=== PATIENT | male | born 1960 | race Caucasian/White ===

== ENCOUNTER 2018-02-09 16:08 | Inpatient (IN) | payer SELFPAY ==
--- OUTSIDE RECORDS SUMMARY | 2018-02-09 16:41 | XMS REPORT | Clinical Summary ---
:1960 Author Organization [facility] Address [address] [place] [address] Phone Care Team Providers Name Role Phone Unavailable Primary Care Provider Unavailable Allergies No Known Allergies Current Medications Prescription Sig. Disp. Refills Start Date End Date Status amoxicillin (AMOXIL) Take 1 tablet 14 tablet 0 10/14/2017 10/21/2017 875 MG tablet (875 mg total) by mouth 2 (two) times daily for 7 days. traMADol (ULTRAM) 50 Take 2 tablets 30 tablet 0 10/14/2017 10/24/2017 mg tablet (100 mg total) by mouth every 6 (six) hours as needed for Pain for up to 10 days. Max Daily Amount: 400 mg amLODIPine (NORVASC) Take 1 tablet (5 30 tablet 0 10/14/2017 11/13/2017 5 MG tablet mg total) by mouth daily for 30 days. Active Problems Problem Noted Date Scrotal abscess 10/11/2017 Encounters Date Type Specialty Care Team Description 10/11/2017 - Hospital Encounter General Internal Prabhu Maynard Scrotal abscess 10/14/2017 Medicine MD Amarjit (Primary Dx);Anemia, unspecified type;Urinary retention 10/11/2017 Anesthesia Event ReCindy corrales CRNA 10/11/2017 Procedure Pass 10/11/2017 Surgery Prabhu Maynard DEBRIDEMENT/I&D,RAZA Ocasio MD ND PERINEAL/RECTAL/VUL DREW after 02/08/2017 Immunizations Name Dates Previously Given Next Due Influenza Three-TIV PF 5+ YR 10/14/2017 Social History Tobacco Use Types Packs/Day Years Used Date Never Assessed Sex Assigned at Date Recorded Not on file Last Filed Vital Signs Vital Sign Reading Time Taken Blood Pressure 172/94 10/14/2017 3:30 PM [employer] Pulse 83 10/14/2017 3:30 PM [employer] Temperature 36.2 C (97.1 F) 10/14/2017 3:30 PM [employer] Respiratory Rate 18 10/14/2017 3:30 PM [employer] Oxygen Saturation 95% 10/14/2017 3:30 PM [employer] Inhaled Oxygen Concentration - - Weight 65.8 kg (145 lb) 10/11/2017 4:15 PM [employer] Height 177.8 cm (5' 10") 10/11/2017 4:15 PM [employer] Body Mass Index 20.81 10/11/2017 4:15 PM [employer] Plan of Treatment Not on file Procedures Procedure Name Priority Date/Time Associated Diagnosis Comments DEBRIDEMENT/I&D,WOUND 10/11/2017 1:00 PM [employer] TOYA'S GANGRENE PERINEAL/RECTAL/VULVAR after 02/08/2017 Results RHYTHM STRIP - SCAN (10/15/2017 2:50 PM)CBC with platelet count + automated diff (10/14/2017 5:27 AM)Only the most recent of4 resultswithin the time period is included. Component Value Ref Range WBC 4.9 3.5 - 10.5 K/L RBC 2.93 (L) 4.63 - 6.08 M/L Hemoglobin 8.4 (L) 13.7 - 17.5 GM/DL Hematocrit 26.2 (L) 40.1 - 51.0 % MCV 89.4 79.0 - 92.2 fL MCH 28.7 25.7 - 32.2 pg MCHC 32.1 (L) 32.3 - 36.5 GM/DL RDW 17.4 (H) 11.6 - 14.4 % Platelets 244 150 - 450 K/CU MM MPV 9.7 9.4 - 12.4 fL nRBC 0 0 - 0 /100 WBC % Neutros 71 % % Lymphs 19 % % Monos 7 % % Eos 1 % % Baso 0 % # Neutros 3.51 1.78 - 5.38 K/L # Lymphs 0.93 (L) 1.32 - 3.57 K/L # Monos 0.33 0.30 - 0.82 K/L # Eos 0.05 0.04 - 0.54 K/L # Baso 0.01 0.01 - 0.08 K/L Immature Granulocytes-Relative 2 (H) 0 - 1 % Specimen Performing Laboratory Blood [facility] [address] [place] [address] CBC with platelet count + automated diff (10/14/2017 5:27 AM)Only the most recent of4 resultswithin the time period is included. Specimen Performing Laboratory Blood Narrative The following orders were created for panel order CBC with platelet count + automated diff. Procedure Abnormality Status --------- ------ CBC with platelet count ...[[id number]]AbnormalFinal result Please view results for these tests on the individual orders. Basic Metabolic Panel - On floor (10/14/2017 5:27 AM)Only the most recent of3 resultswithin the time period is included. Component Value Ref Range Sodium 134 (L) 136 - 145 meq/L Potassium 3.6 3.5 - 5.1 meq/L Chloride 102 98 - 107 meq/L CO2 25 22 - 29 meq/L BUN 8 7 - 21 mg/dL Creatinine 0.77 0.57 - 1.25 mg/dL Glucose 87 70 - 105 mg/dL Calcium 8.2 (L) 8.4 - 10.2 mg/dL EGFR 105Comment: ESTIMATED GFR IS NOT ACCURATE mL/min/1.73 sq m CREATININE CLEARANCE IN PREDICTING GLOMERULAR FILTRATION RATE. ESTIMATED GFR IS NOT APPLICABLE FOR DIALYSIS PATIENTS. Specimen Performing Laboratory Blood [address] [address] TRANSFUSION SERVICE REPORT - SCAN (10/13/2017 5:40 PM)Only the most recent of2 resultswithin the time period is included.Vancomycin level, trough (10/13/2017 12:45 PM) Component Value Ref Range Vancomycin Tr 30.1 (HH) 10.0 - 20.0 ug/mL Specimen Performing Laboratory Blood - Arm, Left [address] [address] Narrative Please draw 30 min prior to 4th dose Occult blood, stool (10/13/2017 11:55 AM) Component Value Ref Range Occult blood Negative Negative Specimen Performing Laboratory Stool - Per Rectum [address] [address] Prepare RBC (10/12/2017 11:54 PM)Only the most recent of2 resultswithin the time period is included. Component Value Ref Range Unit ABO O Neg UNIT NUMBER [id number] Status TRANSFUSED Blood Bank Product RED BLOOD CELLS PRODUCT CODE [id number] Unit ABO O Neg UNIT NUMBER [id number] Status TRANSFUSED Blood Bank Product RED BLOOD CELLS PRODUCT CODE [id number] CROSSMATCH COMPATIBLE CROSSMATCH COMPATIBLE Specimen Performing Laboratory [employer] Reticulocyte count (10/12/2017 5:02 AM)Only the most recent of2 resultswithin the time period is included. Component Value Ref Range % Retic 1.8 0.5 - 1.8 % Specimen Performing Laboratory Blood - Arm, [address] [address] CBC (Hemogram only) (10/11/2017 5:20 PM) Component Value Ref Range WBC 14.9 (H) 3.5 - 10.5 K/L RBC 2.57 (L) 4.63 - 6.08 M/L Hemoglobin 7.5 (L) 13.7 - 17.5 GM/DL Hematocrit 24.1 (L) 40.1 - 51.0 % MCV 93.8 (H) 79.0 - 92.2 fL MCH 29.2 25.7 - 32.2 pg MCHC 31.1 (L) 32.3 - 36.5 GM/DL RDW 17.4 (H) 11.6 - 14.4 % Platelets 183 150 - 450 K/CU MM MPV 10.2 9.4 - 12.4 fL nRBC 0 0 - 0 /100 WBC Specimen Performing Laboratory [address] [address] Vitamin B12 and Folate (10/11/2017 5:15 PM) Component Value Ref Range Vitamin B12 909 (H) 213 - 816 pg/mL Folate 6.8 (L) >=7.0 ng/mL Specimen Performing Laboratory [address] [address] PT/aPTT (10/11/2017 5:15 PM) Component Value Ref Range Protime 17.3 (H) 11.7 - 14.7 seconds INR 1.4 <=5.9 PTT 40.2 (H) 22.5 - 36.0 seconds Specimen Performing Laboratory Blood [facility] [address] [address] Narrative RECOMMENDED COUMADIN/WARFARIN INR THERAPY RANGES STANDARD DOSE: 2.0 - 3.0 Includes: PROPHYLAXIS for venous thrombosis, systemic embolization; TREATMENT for venous thrombosis and/or pulmonary embolus. HIGH RISK: Target INR is 2.5-3.5 for patients with mechanical heart valves. Iron, TIBC, % sat. (without ferritin) (10/11/2017 5:15 PM) Component Value Ref Range Iron 7 (L) 40 - 160 ug/dL TIBC 144 (L) 250 - 450 ug/dL Iron % Saturation 5 (L) 20 - 55 % Specimen Performing Laboratory Blood [address] [address] Fibrinogen (10/11/2017 5:15 PM)Only the most recent of2 resultswithin the time period is included. Component Value Ref Range Fibrinogen 474 (H) 225 - 434 mg/dl Specimen Performing Laboratory Blood [address] [address] D-dimer (10/11/2017 5:15 PM) Component Value Ref Range D-Dimer, Quant 2.28 (H) <0.50 MG/L FEU Specimen Performing Laboratory [address] [address] Narrative Intended Use: The D-Dimer Assay can be used to aid in the diagnosis of Deep Vein Thrombosis (DVT) and Pulmonary Embolism Disease (PED). In patients with low pre-test probability, various studies concerning STA Liatest D-dimer test have reported that with a cutoff value of 0.50 MG/L FEU, the Negative Predictive Value (NPV) regarding the exclusion of thrombosis is within 95-100% range. Direct AHG (LAST)/Direct Lj (10/11/2017 5:15 PM) Component Value Ref Range Direct AHG-IGG NEGATIVE Direct AHG-C3B, C3D NEGATVIE Specimen Performing Laboratory Blood [address] [address] Lactate dehydrogenase (LDH) (10/11/2017 5:15 PM) Component Value Ref Range LDH 197 125 - 220 U/L Specimen Performing Laboratory Blood [address] [address] Ferritin (10/11/2017 5:15 PM) Component Value Ref Range Ferritin 315 (H) 5 - 275 ng/mL Specimen Performing Laboratory Blood [address] [address] Comprehensive metabolic panel (10/11/2017 5:15 PM) Component Value Ref Range Protein, Total 6.7 6.0 - 8.3 gm/dL Albumin 2.9 (L) 3.5 - 5.0 g/dL Alkaline Phosphatase 109 40 - 150 U/L Total Bilirubin 1.3 (H) 0.2 - 1.2 mg/dL Sodium 140 136 - 145 meq/L Potassium 4.0 3.5 - 5.1 meq/L Chloride 111 (H) 98 - 107 meq/L CO2 21 (L) 22 - 29 meq/L BUN 10 7 - 21 mg/dL Creatinine 0.79 0.57 - 1.25 mg/dL Glucose 88 70 - 105 mg/dL Calcium 7.8 (L) 8.4 - 10.2 mg/dL AST 38 (H) 5 - 34 U/L ALT 19 6 - 55 U/L EGFR 102Comment: ESTIMATED GFR IS NOT ACCURATE mL/min/1.73 sq m CREATININE CLEARANCE IN PREDICTING GLOMERULAR FILTRATION RATE. ESTIMATED GFR IS NOT APPLICABLE FOR DIALYSIS PATIENTS. Specimen Performing Laboratory Blood [address] [address] AFB culture + smear (10/11/2017 3:50 PM) Component Value Ref Range Result No acid-fast bacilli isolated in 42 days AFB Smear No acid fast bacilli seen Specimen Performing Laboratory Abscess - Scrotum [address] [address] Anaerobic culture (10/11/2017 3:50 PM) Component Value Ref Range Result Result 3+ Anaerobic gram negative rods (A)Comment: * - not Bacteroides fragilis group Result 3+ Anaerobic gram positive cocci (A) Comment: Most closely resembles * - Peptostreptococcus species Specimen Performing Laboratory Abscess - Scrotum [address] [address] Surgically obtained culture + gram stain (10/11/2017 3:50 PM) Component Value Ref Range Result Result 4+ Enterococcus species (A) Result 2+ Coagulase negative Staphylococcus (A) Gram Stain Result 4+ White blood cells seen Gram Stain Result 4+ gram positive cocci in clusters Gram Stain Result 1+ gram positive coccobacilli Specimen Performing Laboratory [address] [address] Organism Antibiotic Method Susceptibility Enterococcus species Ampicillin <=2: Susceptible Enterococcus species Linezolid 2: Susceptible Enterococcus species Vancomycin 1: Susceptible Coagulase negative Clindamycin 0.5: Susceptible Staphylococcus Coagulase negative Erythromycin <=0.25: Susceptible Staphylococcus Coagulase negative Levofloxacin >=8: Resistant Staphylococcus Coagulase negative Linezolid 4: Susceptible Staphylococcus Coagulase negative Oxacillin <=0.25: Susceptible Staphylococcus Coagulase negative Rifampin <=0.5: Susceptible Staphylococcus Coagulase negative Tetracycline 4: Susceptible Staphylococcus Coagulase negative Trimethoprim + >=320: Resistant Staphylococcus Sulfamethoxazole Coagulase negative Vancomycin 2: Susceptible Staphylococcus Fungus culture + smear (10/11/2017 3:50 PM) Component Value Ref Range Result No fungus isolated in 28 days Fungus Smear No fungi seen Specimen Performing Laboratory Abscess [address] [address] SPIN/CONCENTRATION CHARGE (10/11/2017 3:50 PM) Component Value Ref Range Concentration charged Done Specimen Performing Laboratory [address] [address] aPTT (10/11/2017 3:28 PM) Component Value Ref Range PTT 38.0 (H) 22.5 - 36.0 seconds Specimen Performing Laboratory Blood [address] [address] Prothrombin time/INR (10/11/2017 3:28 PM) Component Value Ref Range Protime 17.2 (H) 11.7 - 14.7 seconds INR 1.4 <=5.9 Specimen Performing Laboratory Blood [address] [address] Narrative RECOMMENDED COUMADIN/WARFARIN INR THERAPY RANGES STANDARD DOSE: 2.0 - 3.0 Includes: PROPHYLAXIS for venous thrombosis, systemic embolization; TREATMENT for venous thrombosis and/or pulmonary embolus. HIGH RISK: Target INR is 2.5-3.5 for patients with mechanical heart valves. Type and screen, automated (10/11/2017 3:20 PM) Component Value Ref Range ABO/RH AUTOMATED (BEAKER) AB POSITIVE Ab Scrn NEGATIVE Specimen Performing Laboratory Blood [address] [address] RRL Critical Labs (ABG,NA,K,H&H,GLU) (10/11/2017 3:15 PM) Specimen Performing Laboratory Blood, Arterial Narrative The following orders were created for panel order RRL Critical Labs (ABG,NA,K,H&H,GLU). Procedure Abnormality Status --------- ------ Blood gas, arterial[[id number]]AbnormalFinal result Sodium Na-Stat Lab[[id number]] NormalFinal result Potassium-Stat Lab[[id number]] NormalFinal result Glucose-Stat Lab[[id number]] NormalFinal result HGB/HCT (H&H)-Stat Lab[[id number]] Abnormal Final result Please view results for these tests on the individual orders. Potassium-Stat Lab (10/11/2017 3:15 PM) Component Value Ref Range Potassium 3.6 3.6 - 5.5 meq/L Specimen Performing Laboratory Blood, Arterial [address] [address] Sodium Na-Stat Lab (10/11/2017 3:15 PM) Component Value Ref Range Sodium 136 135 - 148 meq/L Specimen Performing Laboratory Blood, [address] [address] Glucose-Stat Lab (10/11/2017 3:15 PM) Component Value Ref Range Glucose 82 70 - 110 mg/dL Specimen Performing Laboratory Blood, Arterial [address] [address] HGB/HCT (H&H)-Stat Lab (10/11/2017 3:15 PM) Component Value Ref Range Hemoglobin 4.2 (LL) 13.0 - 16.8 g/dL Hematocrit 12.0 (L) 40.0 - 50.0 % Specimen Performing Laboratory Blood, Arterial [address] [address] Blood gas, arterial (10/11/2017 3:15 PM) Component Value Ref Range pH, Arterial 7.36 7.35 - 7.45 pCO2, Arterial 41 35 - 45 mmHg pO2, Arterial 119 (H) 80 - 90 mmHg O2 Sat, Arterial 98.2 (H) 96.0 - 97.0 % HCO3, Arterial 23 21 - 29 mmol/L Base Excess, Arterial -2.2 (L) -2.0 - 3.0 mmol/L Patient Temperature 36.8 C FIO2 100.0 % Specimen Performing Laboratory Blood, Arterial [facility] [address] [address] after 02/08/2017
--- OUTSIDE RECORDS SUMMARY | 2018-02-09 16:41 | XMS REPORT ---
:1960 Author Organization [facility] Address [address] [place] [id number] Care Team Providers Name Role Phone ELISABETH PAUL Unavailable Unavailable Problems This patient has no known problems. Allergies, Adverse Reactions, Alerts This patient has no known allergies or adverse reactions. Medications This patient has no known medications. Results Test Description Test Time Test Comments Text Results Atomic Results Result Comments AFB CULTURE + SMEAR 2017-11-27 13:52:00 Test Item Value Reference Range Comments CULTURE (BEAKER) (test dsar=9096) No acid-fast bacilli isolated in 42 days AFB SMEAR (BEAKER) (test ikto=061) No acid fast bacilli seen FUNGUS CULTURE + [id number] 08:25:00 Test Item Value Reference Range Comments CULTURE (BEAKER) (test No fungus isolated in 28 days nhpt=8359) FUNGUS SMEAR (BEAKER) (test No fungi seen jorx=8858) ANAEROBIC [id number] 17:50:00 Test Item Value Reference Range Comments CULTURE (BEAKER) (test 3+ Anaerobic gram positive cocciMost trts=9019) closely resembles* - Peptostreptococcus species SURGICALLY OBTAINED CULTURE + GRAM [id number] 12:12:00 Test Item Value Reference Range Comments CULTURE (BEAKER) (test vtls=1432) Ampicillin (test code=26) Linezolid (test code=40) Tetracycline (test code=2) Vancomycin (test code=13) CULTURE (BEAKER) (test 4+ Enterococcus eqtq=5068) species CULTURE (BEAKER) (test COAGULASE NEGATIVE 2+ Coagulase negative bvis=1548) STAPHYLOCOCCUS Staphylococcus Clindamycin (test code=10) Erythromycin (test code=4) Levofloxacin (test code=22) Linezolid (test code=40) Nitrofurantoin (test code=23) Oxacillin (test code=14) Rifampin (test code=43) Tetracycline (test code=2) Trimethoprim + Sulfamethoxazole (test code=47) Vancomycin (test code=13) GRAM STAIN RESULT 4+ White blood cells (BEAKER) (test jmlu=2873) seen GRAM STAIN RESULT 4+ gram positive cocci (BEAKER) (test in clusters vzok=[id number]) GRAM STAIN RESULT 1+ gram positive (BEAKER) (test coccobacilli nwke=421695) BASIC METABOLIC [id number] 07:11:00 Test Item Value Reference Range Comments SODIUM (BEAKER) (test 134 meq/L 136-145 hpjv=967) POTASSIUM (BEAKER) (test 3.6 meq/L 3.5-5.1 mssn=734) CHLORIDE (BEAKER) (test 102 meq/L 98-107 wwqc=486) CO2 (BEAKER) (test 25 meq/L 22-29 bova=407) BLOOD UREA NITROGEN 8 mg/dL 7-21 (BEAKER) (test oilz=407) CREATININE (BEAKER) (test 0.77 mg/dL 0.57-1.25 sqrv=706) GLUCOSE RANDOM (BEAKER) 87 mg/dL 70-105 (test kxgr=868) CALCIUM (BEAKER) (test 8.2 mg/dL 8.4-10.2 bkst=615) EGFR (BEAKER) (test 105 mL/min/1.73 sq m ESTIMATED GFR IS NOT npae=0396) ACCURATE CREATININE CLEARANCE IN PREDICTING GLOMERULAR FILTRATION RATE. ESTIMATED GFR IS NOT APPLICABLE FOR DIALYSIS PATIENTS. CBC W/PLT COUNT & AUTO [id number] 06:09:00 Test Item Value Reference Range Comments WHITE BLOOD CELL COUNT (BEAKER) (test qpvq=223) 4.9 K/ L 3.5-10.5 RED BLOOD CELL COUNT (BEAKER) (test oddz=775) 2.93 M/ L 4.63-6.08 HEMOGLOBIN (BEAKER) (test kyfa=856) 8.4 GM/DL 13.7-17.5 HEMATOCRIT (BEAKER) (test frtc=861) 26.2 % 40.1-51.0 MEAN CORPUSCULAR VOLUME (BEAKER) (test grhv=260) 89.4 fL 79.0-92.2 MEAN CORPUSCULAR HEMOGLOBIN (BEAKER) (test 28.7 pg 25.7-32.2 dpli=226) MEAN CORPUSCULAR HEMOGLOBIN CONC (BEAKER) (test 32.1 GM/DL 32.3-36.5 xsud=322) RED CELL DISTRIBUTION WIDTH (BEAKER) (test 17.4 % 11.6-14.4 ekxb=988) PLATELET COUNT (BEAKER) (test zlnd=950) 244 K/CU MM 150-450 MEAN PLATELET VOLUME (BEAKER) (test vihi=599) 9.7 fL 9.4-12.4 NUCLEATED RED BLOOD CELLS (BEAKER) (test 0 /100 WBC 0-0 blan=203) NEUTROPHILS RELATIVE PERCENT (BEAKER) (test 71 % jmir=143) LYMPHOCYTES RELATIVE PERCENT (BEAKER) (test 19 % syew=108) MONOCYTES RELATIVE PERCENT (BEAKER) (test 7 % uoew=590) EOSINOPHILS RELATIVE PERCENT (BEAKER) (test 1 % apvs=195) BASOPHILS RELATIVE PERCENT (BEAKER) (test 0 % uzrl=458) NEUTROPHILS ABSOLUTE COUNT (BEAKER) (test 3.51 K/ L 1.78-5.38 ftiq=531) LYMPHOCYTES ABSOLUTE COUNT (BEAKER) (test 0.93 K/ L 1.32-3.57 zvvo=877) MONOCYTES ABSOLUTE COUNT (BEAKER) (test 0.33 K/ L 0.30-0.82 qayw=896) EOSINOPHILS ABSOLUTE COUNT (BEAKER) (test 0.05 K/ L 0.04-0.54 pdla=737) BASOPHILS ABSOLUTE COUNT (BEAKER) (test 0.01 K/ L 0.01-0.08 hoym=849) IMMATURE GRANULOCYTES-RELATIVE PERCENT (BEAKER) 2 % 0-1 (test kcie=5633) SPIN/CONCENTRATION [id number] 01:32:00 Test Item Value Reference Range Comments CONCENTRATION CHARGED (BEAKER) (test xkzh=1776) Done OCCULT BLOOD, [id number] 15:47:00 Test Item Value Reference Range Comments FECAL OCCULT BLOOD (BEAKER) (test ydji=563) Negative Negative VANCOMYCIN LEVEL, [id number] 13:39:00 Test Item Value Reference Range Comments VANCOMYCIN TROUGH (BEAKER) (test ticg=704) 30.1 ug/mL 10.0-20.0 Please draw 30 min prior to 4th doseBASIC METABOLIC [id number] 06:16:00 Test Item Value Reference Range Comments SODIUM (BEAKER) (test 138 meq/L 136-145 jmso=286) POTASSIUM (BEAKER) (test 3.6 meq/L 3.5-5.1 dwvm=565) CHLORIDE (BEAKER) (test 109 meq/L 98-107 wxwu=925) CO2 (BEAKER) (test 21 meq/L 22-29 rufy=936) BLOOD UREA NITROGEN 9 mg/dL 7-21 (BEAKER) (test cjsl=070) CREATININE (BEAKER) (test 0.73 mg/dL 0.57-1.25 nrmu=529) GLUCOSE RANDOM (BEAKER) 92 mg/dL 70-105 (test wwxc=120) CALCIUM (BEAKER) (test 7.9 mg/dL 8.4-10.2 pwaj=926) EGFR (BEAKER) (test 112 mL/min/1.73 sq m ESTIMATED GFR IS NOT ophk=5749) ACCURATE CREATININE CLEARANCE IN PREDICTING GLOMERULAR FILTRATION RATE. ESTIMATED GFR IS NOT APPLICABLE FOR DIALYSIS PATIENTS. CBC W/PLT COUNT & AUTO [id number] 05:13:00 Test Item Value Reference Range Comments WHITE BLOOD CELL COUNT (BEAKER) (test zdhi=007) 6.9 K/ L 3.5-10.5 RED BLOOD CELL COUNT (BEAKER) (test fevg=929) 2.64 M/ L 4.63-6.08 HEMOGLOBIN (BEAKER) (test iclz=337) 7.6 GM/DL 13.7-17.5 HEMATOCRIT (BEAKER) (test dmte=379) 24.1 % 40.1-51.0 MEAN CORPUSCULAR VOLUME (BEAKER) (test vkpf=688) 91.3 fL 79.0-92.2 MEAN CORPUSCULAR HEMOGLOBIN (BEAKER) (test 28.8 pg 25.7-32.2 jnfu=771) MEAN CORPUSCULAR HEMOGLOBIN CONC (BEAKER) (test 31.5 GM/DL 32.3-36.5 mhoh=607) RED CELL DISTRIBUTION WIDTH (BEAKER) (test 17.8 % 11.6-14.4 bgwr=182) PLATELET COUNT (BEAKER) (test ifto=237) 222 K/CU MM 150-450 MEAN PLATELET VOLUME (BEAKER) (test bbhk=759) 10.1 fL 9.4-12.4 NUCLEATED RED BLOOD CELLS (BEAKER) (test 0 /100 WBC 0-0 uwqk=463) NEUTROPHILS RELATIVE PERCENT (BEAKER) (test 76 % mhck=651) LYMPHOCYTES RELATIVE PERCENT (BEAKER) (test 15 % vtdm=629) MONOCYTES RELATIVE PERCENT (BEAKER) (test 6 % ekvj=228) EOSINOPHILS RELATIVE PERCENT (BEAKER) (test 0 % qncl=145) BASOPHILS RELATIVE PERCENT (BEAKER) (test 0 % pepc=513) NEUTROPHILS ABSOLUTE COUNT (BEAKER) (test 5.24 K/ L 1.78-5.38 egti=474) LYMPHOCYTES ABSOLUTE COUNT (BEAKER) (test 1.06 K/ L 1.32-3.57 bzsh=231) MONOCYTES ABSOLUTE COUNT (BEAKER) (test 0.40 K/ L 0.30-0.82 ecfl=462) EOSINOPHILS ABSOLUTE COUNT (BEAKER) (test 0.02 K/ L 0.04-0.54 joja=581) BASOPHILS ABSOLUTE COUNT (BEAKER) (test 0.01 K/ L 0.01-0.08 uwer=432) IMMATURE GRANULOCYTES-RELATIVE PERCENT (BEAKER) 2 % 0-1 (test hdpp=2589) BASIC METABOLIC [id number] 06:43:00 Test Item Value Reference Range Comments SODIUM (BEAKER) (test 135 meq/L 136-145 lrjh=628) POTASSIUM (BEAKER) (test 4.5 meq/L 3.5-5.1 clzl=335) CHLORIDE (BEAKER) (test 109 meq/L 98-107 jtql=240) CO2 (BEAKER) (test 19 meq/L 22-29 vsbh=158) BLOOD UREA NITROGEN 13 mg/dL 7-21 (BEAKER) (test quqs=417) CREATININE (BEAKER) (test 0.79 mg/dL 0.57-1.25 vson=973) GLUCOSE RANDOM (BEAKER) 136 mg/dL 70-105 (test mama=081) CALCIUM (BEAKER) (test 7.8 mg/dL 8.4-10.2 mxpc=149) EGFR (BEAKER) (test 102 mL/min/1.73 sq m ESTIMATED GFR IS NOT ytur=3087) ACCURATE CREATININE CLEARANCE IN PREDICTING GLOMERULAR FILTRATION RATE. ESTIMATED GFR IS NOT APPLICABLE FOR DIALYSIS PATIENTS. CBC W/PLT COUNT & AUTO [id number] 06:27:00 Test Item Value Reference Range Comments WHITE BLOOD CELL COUNT (BEAKER) (test mabe=065) 13.7 K/ L 3.5-10.5 RED BLOOD CELL COUNT (BEAKER) (test kxth=886) 2.69 M/ L 4.63-6.08 HEMOGLOBIN (BEAKER) (test gbwd=539) 8.0 GM/DL 13.7-17.5 HEMATOCRIT (BEAKER) (test tdzj=591) 25.2 % 40.1-51.0 MEAN CORPUSCULAR VOLUME (BEAKER) (test ioqo=163) 93.7 fL 79.0-92.2 MEAN CORPUSCULAR HEMOGLOBIN (BEAKER) (test 29.7 pg 25.7-32.2 hppz=747) MEAN CORPUSCULAR HEMOGLOBIN CONC (BEAKER) (test 31.7 GM/DL 32.3-36.5 xfuz=897) RED CELL DISTRIBUTION WIDTH (BEAKER) (test 18.1 % 11.6-14.4 myjs=031) PLATELET COUNT (BEAKER) (test hdql=158) 196 K/CU MM 150-450 MEAN PLATELET VOLUME (BEAKER) (test caef=462) 10.6 fL 9.4-12.4 NUCLEATED RED BLOOD CELLS (BEAKER) (test 0 /100 WBC 0-0 nqxi=720) NEUTROPHILS RELATIVE PERCENT (BEAKER) (test 90 % ufuv=070) LYMPHOCYTES RELATIVE PERCENT (BEAKER) (test 7 % snhp=004) MONOCYTES RELATIVE PERCENT (BEAKER) (test 2 % kqqs=433) EOSINOPHILS RELATIVE PERCENT (BEAKER) (test 0 % kbfl=164) BASOPHILS RELATIVE PERCENT (BEAKER) (test 0 % rpbp=736) NEUTROPHILS ABSOLUTE COUNT (BEAKER) (test 12.32 K/ L 1.78-5.38 rbna=500) LYMPHOCYTES ABSOLUTE COUNT (BEAKER) (test 0.92 K/ L 1.32-3.57 imcb=830) MONOCYTES ABSOLUTE COUNT (BEAKER) (test 0.31 K/ L 0.30-0.82 uues=007) EOSINOPHILS ABSOLUTE COUNT (BEAKER) (test 0.00 K/ L 0.04-0.54 vvgo=696) BASOPHILS ABSOLUTE COUNT (BEAKER) (test 0.01 K/ L 0.01-0.08 akbm=620) IMMATURE GRANULOCYTES-RELATIVE PERCENT (BEAKER) 1 % 0-1 (test hkfu=2522) RETICULOCYTE [id number] 05:39:00 Test Item Value Reference Range Comments RETICULOCYTE COUNT PCT (BEAKER) (test dide=414) 1.8 % 0.5-1.8 [id number] 18:34:00 Test Item Value Reference Range Comments FERRITIN (BEAKER) (test zigm=227) 315 ng/mL 5-275 VITAMIN B12 AND [id number] 18:34:00 Test Item Value Reference Range Comments VITAMIN B12 (BEAKER) (test ehlf=146) 909 pg/mL 213-816 FOLATE (BEAKER) (test dtlt=536) 6.8 ng/mL >=7.0 COMPREHENSIVE METABOLIC [id number] 18:07:00 Test Item Value Reference Range Comments TOTAL PROTEIN (BEAKER) 6.7 gm/dL 6.0-8.3 (test hido=450) ALBUMIN (BEAKER) (test 2.9 g/dL 3.5-5.0 obot=3158) ALKALINE PHOSPHATASE 109 U/L 40-150 (BEAKER) (test pewv=821) BILIRUBIN TOTAL (BEAKER) 1.3 mg/dL 0.2-1.2 (test ebsr=098) SODIUM (BEAKER) (test 140 meq/L 136-145 tiox=738) POTASSIUM (BEAKER) (test 4.0 meq/L 3.5-5.1 zfbo=520) CHLORIDE (BEAKER) (test 111 meq/L 98-107 uppv=203) CO2 (BEAKER) (test 21 meq/L 22-29 dqcw=353) BLOOD UREA NITROGEN 10 mg/dL 7-21 (BEAKER) (test sxxk=727) CREATININE (BEAKER) (test 0.79 mg/dL 0.57-1.25 jszy=226) GLUCOSE RANDOM (BEAKER) 88 mg/dL 70-105 (test xsez=401) CALCIUM (BEAKER) (test 7.8 mg/dL 8.4-10.2 bkht=582) AST (SGOT) (BEAKER) (test 38 U/L 5-34 hjsc=249) ALT (SGPT) (BEAKER) (test 19 U/L 6-55 kodn=966) EGFR (BEAKER) (test 102 mL/min/1.73 sq ESTIMATED GFR IS NOT dppb=7710) m ACCURATE CREATININE CLEARANCE IN PREDICTING GLOMERULAR FILTRATION RATE. ESTIMATED GFR IS NOT APPLICABLE FOR DIALYSIS PATIENTS. LACTATE DEHYDROGENASE (LDH)2017-10-11 18:04:00 Test Item Value Reference Range Comments LACTATE DEHYDROGENASE (BEAKER) (test wqts=583) 197 U/L 125-220 IRON, TIBC, % SAT. (WITHOUT FERRITIN)2017-10-11 18:04:00 Test Item Value Reference Range Comments IRON (BEAKER) (test unoz=114) 7 ug/dL 40-160 TOTAL IRON BINDING CAPACITY (BEAKER) (test 144 ug/dL 250-450 jjoo=291) IRON % SATURATION (2) (BEAKER) (test fsix=2709) 5 % 20-55 [id number] 17:40:00 Test Item Value Reference Range Comments D-DIMER QUANTITATIVE (BEAKER) (test zdtm=251) 2.28 MG/L FEU <0.50 Intended Use: The D-Dimer Assay can be used to aid in the diagnosis of Deep Vein Thrombosis (DVT) and Pulmonary Embolism Disease (PED).In patients with low pre-test probability, various studies concerning STA Liatest D-dimer test have reported that with a cutoff value of 0.50 MG/L FEU, the Negative Predictive Value (NPV) regarding the exclusion of thrombosis is within 95-100% range.CBC ( HEMOGRAM ONLY)2017-10-11 17:39:00 Test Item Value Reference Range Comments WHITE BLOOD CELL COUNT (BEAKER) (test zhpj=087) 14.9 K/ L 3.5-10.5 RED BLOOD CELL COUNT (BEAKER) (test jbbd=300) 2.57 M/ L 4.63-6.08 HEMOGLOBIN (BEAKER) (test sxca=792) 7.5 GM/DL 13.7-17.5 HEMATOCRIT (BEAKER) (test lsif=118) 24.1 % 40.1-51.0 MEAN CORPUSCULAR VOLUME (BEAKER) (test ustp=657) 93.8 fL 79.0-92.2 MEAN CORPUSCULAR HEMOGLOBIN (BEAKER) (test 29.2 pg 25.7-32.2 dbwf=213) MEAN CORPUSCULAR HEMOGLOBIN CONC (BEAKER) (test 31.1 GM/DL 32.3-36.5 olmq=341) RED CELL DISTRIBUTION WIDTH (BEAKER) (test 17.4 % 11.6-14.4 yvap=987) PLATELET COUNT (BEAKER) (test aqrz=677) 183 K/CU MM 150-450 MEAN PLATELET VOLUME (BEAKER) (test coun=403) 10.2 fL 9.4-12.4 NUCLEATED RED BLOOD CELLS (BEAKER) (test 0 /100 WBC 0-0 ukwx=020) [id number] 17:39:00 Test Item Value Reference Range Comments FIBRINOGEN LEVEL (BEAKER) (test giyi=015) 474 mg/dl 225-434 [id number] 17:39:00 Test Item Value Reference Range Comments PROTIME (BEAKER) (test fkyj=861) 17.3 seconds 11.7-14.7 INR (BEAKER) (test mwsx=870) 1.4 <=5.9 PARTIAL THROMBOPLASTIN TIME (BEAKER) (test 40.2 seconds 22.5-36.0 vevq=156) RECOMMENDED COUMADIN/WARFARIN INR THERAPY RANGESSTANDARD DOSE: 2.0 - 3.0 Includes: PROPHYLAXIS forvenous thrombosis, systemic embolization; TREATMENT for venous thrombosis and/or pulmonary embolus.HIGH RISK: Target INR is 2.5-3.5 for patients with mechanical heart valves.RETICULOCYTE [id number] 17:37:00 Test Item Value Reference Range Comments RETICULOCYTE COUNT PCT (BEAKER) (test fuyq=337) 2.2 % 0.5-1.8 CBC W/PLT COUNT & AUTO [id number] 17:26:00 Test Item Value Reference Range Comments WHITE BLOOD CELL COUNT (BEAKER) (test ftxl=702) 14.3 K/ L 3.5-10.5 RED BLOOD CELL COUNT (BEAKER) (test uuao=208) 2.01 M/ L 4.63-6.08 HEMOGLOBIN (BEAKER) (test dpgj=613) 5.8 GM/DL 13.7-17.5 HEMATOCRIT (BEAKER) (test domh=078) 18.8 % 40.1-51.0 MEAN CORPUSCULAR VOLUME (BEAKER) (test ieet=462) 93.5 fL 79.0-92.2 MEAN CORPUSCULAR HEMOGLOBIN (BEAKER) (test 28.9 pg 25.7-32.2 cade=287) MEAN CORPUSCULAR HEMOGLOBIN CONC (BEAKER) (test 30.9 GM/DL 32.3-36.5 qrqa=899) RED CELL DISTRIBUTION WIDTH (BEAKER) (test 19.0 % 11.6-14.4 gqis=221) PLATELET COUNT (BEAKER) (test eeim=548) 187 K/CU MM 150-450 MEAN PLATELET VOLUME (BEAKER) (test swmr=414) 10.4 fL 9.4-12.4 NUCLEATED RED BLOOD CELLS (BEAKER) (test 0 /100 WBC 0-0 sjjs=853) NEUTROPHILS RELATIVE PERCENT (BEAKER) (test 87 % dibt=715) LYMPHOCYTES RELATIVE PERCENT (BEAKER) (test 7 % vjum=440) MONOCYTES RELATIVE PERCENT (BEAKER) (test 5 % lhif=249) EOSINOPHILS RELATIVE PERCENT (BEAKER) (test 0 % jlsp=064) BASOPHILS RELATIVE PERCENT (BEAKER) (test 0 % jbrc=553) NEUTROPHILS ABSOLUTE COUNT (BEAKER) (test 12.46 K/ L 1.78-5.38 fnor=355) LYMPHOCYTES ABSOLUTE COUNT (BEAKER) (test 1.05 K/ L 1.32-3.57 ckuu=970) MONOCYTES ABSOLUTE COUNT (BEAKER) (test 0.71 K/ L 0.30-0.82 owys=902) EOSINOPHILS ABSOLUTE COUNT (BEAKER) (test 0.01 K/ L 0.04-0.54 xhfx=220) BASOPHILS ABSOLUTE COUNT (BEAKER) (test 0.01 K/ L 0.01-0.08 jzdd=174) IMMATURE GRANULOCYTES-RELATIVE PERCENT (BEAKER) 1 % 0-1 (test attf=0483) [id number] 16:21:00 Test Item Value Reference Range Comments PARTIAL THROMBOPLASTIN TIME (BEAKER) (test 38.0 seconds 22.5-36.0 csih=382) PROTHROMBIN [id number] 16:20:00 Test Item Value Reference Range Comments PROTIME (BEAKER) (test eogs=693) 17.2 seconds 11.7-14.7 INR (BEAKER) (test eles=662) 1.4 <=5.9 RECOMMENDED COUMADIN/WARFARIN INR THERAPY RANGESSTANDARD DOSE: 2.0 - 3.0 Includes: PROPHYLAXIS forvenous thrombosis, systemic embolization; TREATMENT for venous thrombosis and/or pulmonary embolus.HIGH RISK: Target INR is 2.5-3.5 for patients with mechanical heart valves.[id number] 16:20:00 Test Item Value Reference Range Comments FIBRINOGEN LEVEL (BEAKER) (test vfcg=276) 441 mg/dl 225-434 HGB/HCT (H&H) - STAT [id number] 15:33:00 Test Item Value Reference Range Comments HEMOGLOBIN (BEAKER) (test wnua=162) 4.2 g/dL 13.0-16.8 HEMATOCRIT (BEAKER) (test lsrp=964) 12.0 % 40.0-50.0 BLOOD GAS, [id number] 15:33:00 Test Item Value Reference Range Comments PH ARTERIAL (BEAKER) (test bafz=421) 7.36 7.35-7.45 PCO2 ARTERIAL (BEAKER) (test xkuv=311) 41 mmHg 35-45 PO2 ARTERIAL (BEAKER) (test pjhy=599) 119 mmHg 80-90 O2 SATURATION ARTERIAL (BEAKER) (test wapt=723) 98.2 % 96.0-97.0 HCO3 ARTERIAL (BEAKER) (test firv=533) 23 mmol/L 21-29 BASE EXCESS ARTERIAL (BEAKER) (test zldu=424) -2.2 mmol/L -2.0-3.0 PATIENT TEMPERATURE (BEAKER) (test dvha=7677) 36.8 C FIO2 (BEAKER) (test nseh=3110) 100.0 % GLUCOSE-STAT [id number] 15:32:00 Test Item Value Reference Range Comments GLUCOSE RANDOM (BEAKER) (test nayg=397) 82 mg/dL 70-110 SODIUM NA-STAT [id number] 15:32:00 Test Item Value Reference Range Comments SODIUM (BEAKER) (test zyhn=469) 136 meq/L 135-148 POTASSIUM-STAT [id number] 15:32:00 Test Item Value Reference Range Comments POTASSIUM (BEAKER) (test pezk=084) 3.6 meq/L 3.6-5.5
[2018-02-09 18:00] VITALS: BMI 17.2
[2018-02-09 18:01] LABS: Potassium 3.3 mEq/L (3.6-5.0)
[2018-02-09 18:09] LABS: Albumin 2.9 g/dL (3.2-5.5); Bilirubin Total 0.6 mg/dL (0.3-1.2); Protein, Total 7.8 g/dL (6.0-8.3)
[2018-02-09 18:39] LABS: Thyroid Stimulating Hormone 1.43 uIU/mL (0.34-5.60)
[2018-02-09] MEDS ORDERED: NA CHLORIDE 0.9% 250 ML IV SCH (19:00)
[2018-02-09] MEDS ORDERED: DIPHENHYDRAMINE 50 MG/ML VIAL IV ONE (22:38)
[2018-02-09] MEDS: ACETAMINOPHEN 500 MG TAB PO PRN (22:43)
[2018-02-09] MEDS ORDERED: ACETAMINOPHEN 500 MG TAB ONE (22:43)
[2018-02-09] MEDS ORDERED: DIPHENHYDRAMINE 50 MG/ML VIAL ONE (22:43)
[2018-02-10] MEDS ORDERED: FUROSEMIDE 20 MG/ 2ML VIAL IV ONE ×2 (06:44→10:35)
[2018-02-10 08:22] LABS: Hematocrit 22.1 % (39.6-49.0)
[2018-02-10] MEDS: AMLODIPINE 5 MG TAB PO ONE ×2 (08:57→09:27)
[2018-02-10] MEDS ORDERED: NA CHLORIDE 0.9% 250 ML IV SCH (09:00)
[2018-02-10] MEDS ORDERED: AMLODIPINE 5 MG TAB PO ONE (10:35)
--- NOTE | 2018-02-10 10:41 | RAD REPORT ---
EXAM DESCRIPTION: Bao Martin (2 Views)02/10/2018 10:26 am CLINICAL HISTORY: Cough COMPARISON: None FINDINGS: A 5 millimeter nodular opacity overlies the mid to lower right hemithorax. The remainder of the lungs appear clear of acute infiltrate. The heart is normal size IMPRESSION: A 5 millimeter nodular opacity overlying the mid to lower right hemithorax may represent a pulmonary nodule or nipple shadow. Frontal and oblique views of the chest with a right nipple emre er recommended for further evaluation
[2018-02-10] MEDS ORDERED: KCL 20 MEQ/100 mL IVPB 20 MEQ/100 ML BAG IV SCH (11:00)
[2018-02-10] MEDS ORDERED: Ringers Lactate 1,000 ML IV ONE (12:03)
[2018-02-10] MEDS ORDERED: PROPOFOL 200 MG/20 ML VIAL IV ONE (12:36)
--- NOTE | 2018-02-10 13:07 | ENDO RPT ---
[address], [address] EGD PROCEDURE REPORT EXAM DATE: 02/10/2018 PATIENT NAME: Manjit Ba MR#: [id number] BIRTHDATE: 1960 ATTENDING: Raul Chris Dr STATUS: inpatient - [facility] [employer] ADJUNCT: Rosanna Carroll and Karol Murry RN INDICATIONS: The patient is a 57 yr old Male here for an EGD due to iron deficiency anemia, nausea, and weight loss PROCEDURE PERFORMED: EGD with biopsy MEDICATIONS: Per Anesthesia. TOPICAL ANESTHETIC: none CONSENT: The patient understands the risks and benefits of the procedure and understands that these risks include, but are not limited to: sedation, allergic reaction, infection, perforation and/or bleeding. Alternative means of evaluation and treatment include, among others: physical exam, x-rays, and/or surgical intervention. The patient elects to proceed with this endoscopic procedure. DESCRIPTION OF PROCEDURE: During intra-op preparation period all mechanical medical equipment was checked for proper function. Hand hygiene and appropriate measures for infection prevention was taken. Procedure, possible complications, and alternatives including but not limited to the possibility of bleeding, perforation, tear, infection, sepsis, need for surgery, need for blood transfusion, and anesthesia related complications were explained to the patient. After the risks, benefits and alternatives of the procedure were thoroughly explained, Informed consent was verified, confirmed and timeout was successfully executed by the treatment team. The patient was placed in the left lateral position. The patient was anesthetized with topical anesthesia. Through the anesthetized oropharyngeal area, the scope was passed without any difficulty. The [id number] ([id number]) endoscope was introduced through the mouth and advanced to the third portion of the duodenum. Retroflexed views revealed a small hiatal hernia. The gastroscope was then slowly withdrawn and removed. Numerous yellow-white plaques were found in the tab-pharynx and total esophagus. A small hiatal hernia was found. Multiple (3) erosions were found in the antrum. Multiple biopsies were obtained and sent to pathology. Duodenitis was found in the bulb of the duodenum. Small bowel biopsies obtained with history of iron deficiency anemia ADVERSE EVENTS: There were no complications. IMPRESSIONS: 1. Numerous yellow-white plaques in the tab-pharynx and total 2. A small hiatal hernia 3. Multiple (3) erosions in the antrum, s/p biopsies 4. Duodenitis in the bulb of the duodenum 5. Small bowel biopsies obtained with history of iron deficiency anemia RECOMMENDATIONS: 1. await biopsy results 2. acid suppression therapy REPEAT EXAM: Raul Chris Dr eSigned: Raul Chris Dr 02/10/2018 1:06 PM cc: Jackie Wall CPT CODES: ICD9 CODES: PATIENT NAME: Manjit Ba MR#: [id number]
--- NOTE | 2018-02-10 13:08 | ENDO RPT ---
[address], [address] EGD PROCEDURE REPORT EXAM DATE: 02/10/2018 PATIENT NAME: Manjit Ba MR#: [id number] BIRTHDATE: 1960 ATTENDING: Raul Chris Dr STATUS: inpatient - [facility] [employer]: Rosanna Carroll and Karol Murry RN INDICATIONS: The patient is a 57 yr old Male here for an EGD due to iron deficiency anemia, nausea, and weight loss PROCEDURE PERFORMED: EGD with biopsy MEDICATIONS: Per Anesthesia. TOPICAL ANESTHETIC: none CONSENT: The patient understands the risks and benefits of the procedure and understands that these risks include, but are not limited to: sedation, allergic reaction, infection, perforation and/or bleeding. Alternative means of evaluation and treatment include, among others: physical exam, x-rays, and/or surgical intervention. The patient elects to proceed with this endoscopic procedure. DESCRIPTION OF PROCEDURE: During intra-op preparation period all mechanical medical equipment was checked for proper function. Hand hygiene and appropriate measures for infection prevention was taken. Procedure, possible complications, and alternatives including but not limited to the possibility of bleeding, perforation, tear, infection, sepsis, need for surgery, need for blood transfusion, and anesthesia related complications were explained to the patient. After the risks, benefits and alternatives of the procedure were thoroughly explained, Informed consent was verified, confirmed and timeout was successfully executed by the treatment team. The patient was placed in the left lateral position. The patient was anesthetized with topical anesthesia. Through the anesthetized oropharyngeal area, the scope was passed without any difficulty. The [id number] ([id number]) endoscope was introduced through the mouth and advanced to the third portion of the duodenum. Retroflexed views revealed a small hiatal hernia. The gastroscope was then slowly withdrawn and removed. Numerous yellow-white plaques were found in the tab-pharynx and total esophagus. A small hiatal hernia was found. Multiple (3) erosions were found in the antrum. Multiple biopsies were obtained and sent to pathology. Duodenitis was found in the bulb of the duodenum. Small bowel biopsies obtained with history of iron deficiency anemia ADVERSE EVENTS: There were no complications. IMPRESSIONS: 1. Numerous yellow-white plaques in the tab-pharynx and total 2. A small hiatal hernia 3. Multiple (3) erosions in the antrum, s/p biopsies 4. Duodenitis in the bulb of the duodenum 5. Small bowel biopsies obtained with history of iron deficiency anemia RECOMMENDATIONS: 1. await biopsy results 2. acid suppression therapy REPEAT EXAM: Raul Chris Dr eSigned: Raul Chris Dr 02/10/2018 1:08 PM Revised: 02/10/2018 1:08 PM cc: Jackie Wall CPT CODES: ICD9 CODES: PATIENT NAME: Manjit Ba MR#: [id number]
--- NOTE | 2018-02-10 16:59 | RAD REPORT ---
EXAM DESCRIPTION: RAD - Chest W Obliques - 02/10/2018 4:53 pm CLINICAL HISTORY: Abnormal chest radiograph. COMPARISON: 02/10/2018 FINDINGS: The lungs are clear. No pulmonary nodule is present. The heart is normal in size. No displ aced fractures. IMPRESSION: No acute or concerning finding suspected.
[2018-02-10] MEDS: FLUCONAZOLE 200mg IVPB 200 MG/100 ML BAG IV SCH (17:23)
[2018-02-10] MEDS: NYSTATIN 500,000 UNIT/5 ML UDC PO SCH ×2 (17:24→20:24)
[2018-02-10 18:56] LABS: Hematocrit 26.9 % (39.6-49.0)
--- NOTE | 2018-02-10 20:04 | RAD REPORT ---
EXAM DESCRIPTION: RAD - Small Bowel Series - 02/10/2018 4:53 pm CLINICAL HISTORY: Abdominal pain/ COMPARISON: None. FINDINGS: Contrast enters the colon by approximately 1 hour 15 minutes. The mucosal folds of the small bowel appear normal. No permanent filling defects, obstructing or constricting lesions are seen. The small bowel caliber is normal. IMPRESSION: Unremarkable small bowel series.
[2018-02-10] MEDS: ENSURE ENLIVE 237 ML CAN PO SCH (20:25)
[2018-02-10 22:32] VITALS: O2SAT 96
--- NOTE | 2018-02-11 01:35 | HP ---
Date of Admission: 02/09/2018 Chief Complaint: Anemia. History Of Present Illness: A 57-year-old male who was brought to the office with weakness and dizzi ness. Outpatient CBC showed hemoglobin less than 6 g. The patient is admitted for blood transfusion as well as workup for his anemia. The patient claims that he had anemia before. He was at [facility] in [place]. He was told that his anemia was from chronic urinary infection. The patient denied any history of vomiting of blood or black stools. Past Medical History: History of cervical disc surgery, history of prostate infection, UTI. Family History: Hypertension present. Personal History: No known allergies. Home Medications: Currently none. Review of Systems: The patient denied any fever, chills, or rigors. Physical Examination: General: Revealed a 57-year-old male, pale looking. HEENT: Otherwise negative. Neck: Supple. Old surgical scar from surgery is seen. Chest: Occasional wheezes. Heart: Regular. Abdomen: Soft. Extremities: Some muscle wasting of the arms noted, probably related to disc surgery in the past. Laboratory Data: Hemoglobin less than 6 g. Iron low. Assessment: 1.Iron-deficiency anemia, severe. 2.History of chronic urinary tract infection. 3.History of cervical spine surgery. Plan: Blood transfusion of 3 units done already. The patient is being seen by GI Service. SARAH/ILA Voice ID: [id number]
[2018-02-11] MEDS: NYSTATIN 500,000 UNIT/5 ML UDC PO SCH ×2 (09:10→13:49)
[2018-02-11] MEDS: ENSURE ENLIVE 237 ML CAN PO SCH (09:13)
[2018-02-11] MEDS: FLUCONAZOLE 200mg IVPB 200 MG/100 ML BAG IV SCH (13:49)
[2018-02-11] MEDS: ACETAMINOPHEN 500 MG TAB PO PRN (13:53)
[2018-02-11 15:22] LABS: Urine Bacteria >50 /HPF (NONE SEEN); Urine Culture Reflex Order REFLEXED; Urine RBC <5 /HPF (NONE SEEN)
[2018-02-11 17:00] VITALS: BP 157/86; TEMP 99.3
--- NOTE | 2018-02-11 19:32 | PN ---
The patient is ambulating in the room. His color looks good. He did not have any vomiting, nausea, other GI symptoms. The patient will be discharged on Cipro for his UTI. He will receive Diflucan as well as Mycelex. He will have a small bowel series and other workup for his severe anemia. He will be taking 2 pills of iron at home. SARAH/ILA Voice ID: [id number] Report ID: [id number]
[2018-02-13 19:35] LABS: HIV 1/2 Antibody Diff Has been added.; HIV AG/AB 4TH GEN Reactive (Non-reactive); HIV-1 ANTIBODY Positive (Negative)
--- NOTE | 2018-04-26 20:57 | CON ---
Date of Consultation: 02/10/2018 Reason For Consultation: Severe iron deficiency anemia with a hemoglobin of 7.4, yesterday was down to 5.3. History Of Present Illness: This patient is a 57-year-old male, who presented to the hospital due to severe anemia. The patient denies any melena, hematochezia, hematemesis, coffee-ground emesis, jose turia, dysuria, or polydipsia. He does note nausea and fatigue recently with a 40-pound weight loss over the past year. Past Medical History: Significant for prostate infection, UTIs, cervical disc surgery. Family History: Significant for hypertension. Father of old age at age 90 and mother alive wit h hypertension. Social History: , 2 children. Positive for tobacco about a quarter pack per day. Alcohol 3 -4 drinks per day including whiskey, beer, possible wine. Review of Systems: The patient has nausea, fatigue and weight loss of 40 pounds over the past year. He denies any melen a, hematochezia, hematemesis, coffee-ground emesis, hematuria, dysuria, polydipsia, hemoptysis. No l ower extremity paresthesias, muscle aches, joint aches, backaches, depression, anxiety. Physical Examination: Vital Signs: The patient is 5 foot 10, 120 pounds. BMI of 17.2 kg/m2 with a temperature of 98.7 deg jack Fahrenheit, pulse 68, respirations 16, blood pressure 179/95, O2 saturation 99%. HEENT: Normocephalic, atraumatic, anicteric. Pupils equal, round, and reactive to light. Extraocul ar movement clear. Oropharynx is clear.. Neck: Supple. No masses. Respirations: Clear to auscultation bilaterally. Cardiac: Regular rate and rhythm. No gallops or rubs. Gastrointestinal: Positive bowel sounds. Soft, nontender, nondistended. No hepatosplenomegaly. Extremities: No clubbing, cyanosis, or edema. 2+ pulses. Neuro: Alert and oriented x3. Grossly nonfocal. 5/5 motor strength. Sensation intact to light touch. Laboratory Data: The patient has a hemoglobin of 7.4, hematocrit 22.1. Iron of 12, which is low and there is no TIBC or ferritin given. Does have a sodium of 136, potassium 3.3, chloride 102, bicarb 26, BUN 15, creatinine of 1.1, glucose 121, calcium 8.3, total bilirubin 0.6, AST 19, ALT 10, alkalin e phosphatase 74, total protein 7, albumin 3.9, vitamin B12 232, TSH 1.43, 10 to 20 white blood cells , greater than 50 bacteria. Impression: Severe iron deficiency anemia with hemoglobin of 7.4, iron of 12, which is low. Hemoglo bin is noted to be 5.3 prior to admission in the PCP office. There was no blood seen by patient. Co lonoscopy 4 weeks ago at [facility] was negative by his recollection. No EGD then. He th ought that he had a bladder infection at that hospital visit 4 weeks ago at [facility] in [place]. He denies any melena, hematochezia, coffee-ground emesis, hematuria, dysuria, polydipsia, hemoptysis . No blood seen by patient. He does have nausea, fatigue, and a 40-pound weight loss over the past year. Recommendation: 1.Proceed with EGD. 2.Obtain colonoscopy 4 weeks ago done at [facility] in [place], [place]. 3.Serial H and H and transfuse p.r.n. 4.Agree with 2 units of packed RBCs and 1-2 more given. 5.PPI therapy. Keep patient n.p.o. Addendum: Small-bowel series which was performed after EGD was negative and also laboratory values s erologies revealed HIV antibody 1 positive and HIV antibody 1 antibody fourth generation test to be r eactive. HIV 2 was negative, so patient appears to have an HIV 1. We will need to be seen by infectious disease consult in [place], [place]. ALONSO/ILA Voice ID: [id number] Report ID: [id number]
== END 2018-02-11 18:02 | disposition home or self-care (01) | DRG 812 ==
LOC: 4TH 16:38
PROVIDERS: ADMIT Internal Medicine; ATTEND Internal Medicine
PROC: 30233N1 Transfusion of Nonautologous Red Blood Cells into Peripheral Vein, Percutaneous Approach (ICD-10-PCS; 2018-02-10)
PROC: 0DB68ZX Excision of Stomach, Via Natural or Artificial Opening Endoscopic, Diagnostic (ICD-10-PCS; principal; 2018-02-10 11:00)
DX: D50.9 Iron deficiency anemia, unspecified (principal); N39.0 Urinary tract infection, site not specified; K44.9 Diaphragmatic hernia without obstruction or gangrene; K29.80 Duodenitis without bleeding; K25.9 Gastric ulcer, unspecified as acute or chronic, without hemorrhage or perforation
CPT/HCPCS: 36415; 71022; 71046; 74250; 80053; 81015; 82607; 83540; 84443; 85014; 85018; 86850; 86900; 86901; 87077; 87086; 87088; 87186; 87389; 88305; 88312; J1450; J1940; P9016

== ENCOUNTER 2019-01-13 18:46 | Emergency (ER) | payer SELFPAY ==
--- OUTSIDE RECORDS SUMMARY | 2019-01-13 18:48 | XMS REPORT | Clinical Summary ---
:1960 Author Organization [facility] Address [address] [place] [address] Care Team Providers Name Role Phone Sharplana Primary Care Provider Allergies No Known Allergies Medications No known medications Active Problems Problem Noted Date Scrotal abscess 10/11/2017 Immunizations Name Dates Previously Given Next Due Influenza Three-TIV PF 5+ YR 10/14/2017 Social History Tobacco Use Types Packs/Day Years Used Date Never Assessed Sex Assigned at Date Recorded Not on file Job Start Date Occupation Industry Not on file Not on file Not on file Travel History Travel Start Travel End No recent travel history available. Last Filed Vital Signs Not on file Plan of Treatment Not on file Results Not on fileafter 01/12/2018 Advance Directives For more information, please contact:[facility]Tqrbtw[address] [place] [address] [phone] Code Status Date Activated Date Inactivated Comments Full Code 10/11/2017 8:51 PM 10/14/2017 8:32 PM This code status was determined by: Patient
--- OUTSIDE RECORDS SUMMARY | 2019-01-13 18:49 | XMS REPORT ---
:1960 [facility] Address [address] [place] [address] Care Team Providers Name Role Phone ELISABETH [...] Value Reference Range Comments CULTURE (BEAKER) (test tcdj=7556) No acid-fast bacilli isolated in 42 days AFB SMEAR (BEAKER) (test qaiv=256) No acid fast bacilli seen FUNGUS CULTURE + [id number] 08:25:00 Test Item Value Reference Range Comments CULTURE (BEAKER) (test No fungus isolated in 28 days ppqk=3970) FUNGUS SMEAR (BEAKER) (test No fungi seen zcor=3716) ANAEROBIC [id number] 17:50:00 Test Item Value Reference Range Comments CULTURE (BEAKER) (test 3+ Anaerobic gram positive cocciMost vdzu=2824) closely resembles* - Peptostreptococcus species SURGICALLY OBTAINED CULTURE + GRAM [id number] 12:12:00 Test Item Value Reference Range Comments CULTURE (BEAKER) (test mhqq=6233) Ampicillin (test code=26) Linezolid (test code=40) Tetracycline (test code=2) Vancomycin (test code=13) CULTURE (BEAKER) (test 4+ Enterococcus uljp=3539) species CULTURE (BEAKER) (test COAGULASE NEGATIVE 2+ Coagulase negative bzbg=7969) STAPHYLOCOCCUS Staphylococcus Clindamycin (test code=10) Erythromycin (test code=4) Levofloxacin (test code=22) Linezolid (test code=40) Nitrofurantoin (test code=23) Oxacillin (test code=14) Rifampin (test code=43) Tetracycline (test code=2) Trimethoprim + Sulfamethoxazole (test code=47) Vancomycin (test code=13) GRAM STAIN RESULT 4+ White blood cells (BEAKER) (test inoe=0108) seen GRAM STAIN RESULT 4+ gram positive cocci (BEAKER) (test in clusters qvjt=213877) GRAM STAIN RESULT 1+ gram positive (BEAKER) (test coccobacilli tmzd=701995) BASIC METABOLIC [id number] 07:11:00 Test Item Value Reference Range Comments SODIUM (BEAKER) (test 134 meq/L 136-145 llgv=639) POTASSIUM (BEAKER) (test 3.6 meq/L 3.5-5.1 rzto=150) CHLORIDE (BEAKER) (test 102 meq/L 98-107 vsxt=906) CO2 (BEAKER) (test 25 meq/L 22-29 oodo=485) BLOOD UREA NITROGEN 8 mg/dL 7-21 (BEAKER) (test ggtb=537) CREATININE (BEAKER) (test 0.77 mg/dL 0.57-1.25 amjv=769) GLUCOSE RANDOM (BEAKER) 87 mg/dL 70-105 (test inpa=644) CALCIUM (BEAKER) (test 8.2 mg/dL 8.4-10.2 jrxr=387) EGFR (BEAKER) (test 105 mL/min/1.73 sq m ESTIMATED GFR IS NOT fyny=6046) ACCURATE CREATININE CLEARANCE IN PREDICTING GLOMERULAR FILTRATION RATE. ESTIMATED GFR IS NOT APPLICABLE FOR DIALYSIS PATIENTS. CBC W/PLT COUNT & AUTO [id number] 06:09:00 Test Item Value Reference Range Comments WHITE BLOOD CELL COUNT (BEAKER) (test vozm=587) 4.9 K/ L 3.5-10.5 RED BLOOD CELL COUNT (BEAKER) (test afvr=540) 2.93 M/ L 4.63-6.08 HEMOGLOBIN (BEAKER) (test kvna=131) 8.4 GM/DL 13.7-17.5 HEMATOCRIT (BEAKER) (test ceii=462) 26.2 % 40.1-51.0 MEAN CORPUSCULAR VOLUME (BEAKER) (test hnyz=422) 89.4 fL 79.0-92.2 MEAN CORPUSCULAR HEMOGLOBIN (BEAKER) (test 28.7 pg 25.7-32.2 ommi=488) MEAN CORPUSCULAR HEMOGLOBIN CONC (BEAKER) (test 32.1 GM/DL 32.3-36.5 cvdl=347) RED CELL DISTRIBUTION WIDTH (BEAKER) (test 17.4 % 11.6-14.4 ctum=743) PLATELET COUNT (BEAKER) (test jrzd=867) 244 K/CU MM 150-450 MEAN PLATELET VOLUME (BEAKER) (test mpud=391) 9.7 fL 9.4-12.4 NUCLEATED RED BLOOD CELLS (BEAKER) (test 0 /100 WBC 0-0 emow=682) NEUTROPHILS RELATIVE PERCENT (BEAKER) (test 71 % zwuk=545) LYMPHOCYTES RELATIVE PERCENT (BEAKER) (test 19 % yuff=616) MONOCYTES RELATIVE PERCENT (BEAKER) (test 7 % rfgq=079) EOSINOPHILS RELATIVE PERCENT (BEAKER) (test 1 % nhre=163) BASOPHILS RELATIVE PERCENT (BEAKER) (test 0 % nexa=230) NEUTROPHILS ABSOLUTE COUNT (BEAKER) (test 3.51 K/ L 1.78-5.38 cvry=633) LYMPHOCYTES ABSOLUTE COUNT (BEAKER) (test 0.93 K/ L 1.32-3.57 cnnc=603) MONOCYTES ABSOLUTE COUNT (BEAKER) (test 0.33 K/ L 0.30-0.82 dvko=367) EOSINOPHILS ABSOLUTE COUNT (BEAKER) (test 0.05 K/ L 0.04-0.54 zsfu=865) BASOPHILS ABSOLUTE COUNT (BEAKER) (test 0.01 K/ L 0.01-0.08 xvmq=302) IMMATURE GRANULOCYTES-RELATIVE PERCENT (BEAKER) 2 % 0-1 (test qmpr=8468) SPIN/CONCENTRATION [id number] 01:32:00 Test Item Value Reference Range Comments CONCENTRATION CHARGED (BEAKER) (test zchb=3435) Done OCCULT BLOOD, [id number] 15:47:00 Test Item Value Reference Range Comments FECAL OCCULT BLOOD (BEAKER) (test nkza=065) Negative Negative VANCOMYCIN LEVEL, [id number] 13:39:00 Test Item Value Reference Range Comments VANCOMYCIN TROUGH (BEAKER) (test pozq=224) 30.1 ug/mL 10.0-20.0 Please draw 30 min prior to 4th doseBASIC METABOLIC [id number] 06:16:00 Test Item Value Reference Range Comments SODIUM (BEAKER) (test 138 meq/L 136-145 zszz=808) POTASSIUM (BEAKER) (test 3.6 meq/L 3.5-5.1 eurv=589) CHLORIDE (BEAKER) (test 109 meq/L 98-107 vbjr=411) CO2 (BEAKER) (test 21 meq/L 22-29 dtrj=831) BLOOD UREA NITROGEN 9 mg/dL 7-21 (BEAKER) (test flvy=106) CREATININE (BEAKER) (test 0.73 mg/dL 0.57-1.25 ppkf=784) GLUCOSE RANDOM (BEAKER) 92 mg/dL 70-105 (test mibp=385) CALCIUM (BEAKER) (test 7.9 mg/dL 8.4-10.2 zjtd=149) EGFR (BEAKER) (test 112 mL/min/1.73 sq m ESTIMATED GFR IS NOT hwtt=4657) ACCURATE CREATININE CLEARANCE IN PREDICTING GLOMERULAR FILTRATION RATE. ESTIMATED GFR IS NOT APPLICABLE FOR DIALYSIS PATIENTS. CBC W/PLT COUNT & AUTO [id number] 05:13:00 Test Item Value Reference Range Comments WHITE BLOOD CELL COUNT (BEAKER) (test wwsj=811) 6.9 K/ L 3.5-10.5 RED BLOOD CELL COUNT (BEAKER) (test gskg=654) 2.64 M/ L 4.63-6.08 HEMOGLOBIN (BEAKER) (test fykc=446) 7.6 GM/DL 13.7-17.5 HEMATOCRIT (BEAKER) (test wrdy=621) 24.1 % 40.1-51.0 MEAN CORPUSCULAR VOLUME (BEAKER) (test ginr=482) 91.3 fL 79.0-92.2 MEAN CORPUSCULAR HEMOGLOBIN (BEAKER) (test 28.8 pg 25.7-32.2 iayo=598) MEAN CORPUSCULAR HEMOGLOBIN CONC (BEAKER) (test 31.5 GM/DL 32.3-36.5 dixb=940) RED CELL DISTRIBUTION WIDTH (BEAKER) (test 17.8 % 11.6-14.4 cgzb=970) PLATELET COUNT (BEAKER) (test luuq=360) 222 K/CU MM 150-450 MEAN PLATELET VOLUME (BEAKER) (test wwqb=120) 10.1 fL 9.4-12.4 NUCLEATED RED BLOOD CELLS (BEAKER) (test 0 /100 WBC 0-0 yyaw=172) NEUTROPHILS RELATIVE PERCENT (BEAKER) (test 76 % xpgf=102) LYMPHOCYTES RELATIVE PERCENT (BEAKER) (test 15 % yqsl=608) MONOCYTES RELATIVE PERCENT (BEAKER) (test 6 % lwny=602) EOSINOPHILS RELATIVE PERCENT (BEAKER) (test 0 % qymu=799) BASOPHILS RELATIVE PERCENT (BEAKER) (test 0 % gilh=854) NEUTROPHILS ABSOLUTE COUNT (BEAKER) (test 5.24 K/ L 1.78-5.38 zjtz=631) LYMPHOCYTES ABSOLUTE COUNT (BEAKER) (test 1.06 K/ L 1.32-3.57 duio=725) MONOCYTES ABSOLUTE COUNT (BEAKER) (test 0.40 K/ L 0.30-0.82 uhqa=887) EOSINOPHILS ABSOLUTE COUNT (BEAKER) (test 0.02 K/ L 0.04-0.54 dpgu=990) BASOPHILS ABSOLUTE COUNT (BEAKER) (test 0.01 K/ L 0.01-0.08 gzpb=111) IMMATURE GRANULOCYTES-RELATIVE PERCENT (BEAKER) 2 % 0-1 (test ypcg=7901) BASIC METABOLIC [id number] 06:43:00 Test Item Value Reference Range Comments SODIUM (BEAKER) (test 135 meq/L 136-145 wlei=966) POTASSIUM (BEAKER) (test 4.5 meq/L 3.5-5.1 ubfs=427) CHLORIDE (BEAKER) (test 109 meq/L 98-107 rhkp=699) CO2 (BEAKER) (test 19 meq/L 22-29 exlm=569) BLOOD UREA NITROGEN 13 mg/dL 7-21 (BEAKER) (test lczs=456) CREATININE (BEAKER) (test 0.79 mg/dL 0.57-1.25 onwm=354) GLUCOSE RANDOM (BEAKER) 136 mg/dL 70-105 (test emwu=866) CALCIUM (BEAKER) (test 7.8 mg/dL 8.4-10.2 inru=948) EGFR (BEAKER) (test 102 mL/min/1.73 sq m ESTIMATED GFR IS NOT kkws=9841) ACCURATE CREATININE CLEARANCE IN PREDICTING GLOMERULAR FILTRATION RATE. ESTIMATED GFR IS NOT APPLICABLE FOR DIALYSIS PATIENTS. CBC W/PLT COUNT & AUTO [id number] 06:27:00 Test Item Value Reference Range Comments WHITE BLOOD CELL COUNT (BEAKER) (test pcfc=326) 13.7 K/ L 3.5-10.5 RED BLOOD CELL COUNT (BEAKER) (test qplv=067) 2.69 M/ L 4.63-6.08 HEMOGLOBIN (BEAKER) (test wjns=770) 8.0 GM/DL 13.7-17.5 HEMATOCRIT (BEAKER) (test kyfq=999) 25.2 % 40.1-51.0 MEAN CORPUSCULAR VOLUME (BEAKER) (test tdgk=108) 93.7 fL 79.0-92.2 MEAN CORPUSCULAR HEMOGLOBIN (BEAKER) (test 29.7 pg 25.7-32.2 smfg=367) MEAN CORPUSCULAR HEMOGLOBIN CONC (BEAKER) (test 31.7 GM/DL 32.3-36.5 eozr=596) RED CELL DISTRIBUTION WIDTH (BEAKER) (test 18.1 % 11.6-14.4 nzuf=472) PLATELET COUNT (BEAKER) (test xzhy=750) 196 K/CU MM 150-450 MEAN PLATELET VOLUME (BEAKER) (test hxdl=270) 10.6 fL 9.4-12.4 NUCLEATED RED BLOOD CELLS (BEAKER) (test 0 /100 WBC 0-0 gdbi=306) NEUTROPHILS RELATIVE PERCENT (BEAKER) (test 90 % ptlj=668) LYMPHOCYTES RELATIVE PERCENT (BEAKER) (test 7 % fzmq=352) MONOCYTES RELATIVE PERCENT (BEAKER) (test 2 % oxae=423) EOSINOPHILS RELATIVE PERCENT (BEAKER) (test 0 % ycpa=636) BASOPHILS RELATIVE PERCENT (BEAKER) (test 0 % tihf=202) NEUTROPHILS ABSOLUTE COUNT (BEAKER) (test 12.32 K/ L 1.78-5.38 volq=912) LYMPHOCYTES ABSOLUTE COUNT (BEAKER) (test 0.92 K/ L 1.32-3.57 mdhc=525) MONOCYTES ABSOLUTE COUNT (BEAKER) (test 0.31 K/ L 0.30-0.82 jlae=647) EOSINOPHILS ABSOLUTE COUNT (BEAKER) (test 0.00 K/ L 0.04-0.54 pece=415) BASOPHILS ABSOLUTE COUNT (BEAKER) (test 0.01 K/ L 0.01-0.08 dzim=404) IMMATURE GRANULOCYTES-RELATIVE PERCENT (BEAKER) 1 % 0-1 (test duta=8278) RETICULOCYTE [id number] 05:39:00 Test Item Value Reference Range Comments RETICULOCYTE COUNT PCT (BEAKER) (test vdik=705) 1.8 % 0.5-1.8 [id number] 18:34:00 Test Item Value Reference Range Comments FERRITIN (BEAKER) (test cepj=124) 315 ng/mL 5-275 VITAMIN B12 AND [id number] 18:34:00 Test Item Value Reference Range Comments VITAMIN B12 (BEAKER) (test eggb=069) 909 pg/mL 213-816 FOLATE (BEAKER) (test sexj=260) 6.8 ng/mL >=7.0 COMPREHENSIVE METABOLIC [id number] 18:07:00 Test Item Value Reference Range Comments TOTAL PROTEIN (BEAKER) 6.7 gm/dL 6.0-8.3 (test khpi=229) ALBUMIN (BEAKER) (test 2.9 g/dL 3.5-5.0 kkjq=3584) ALKALINE PHOSPHATASE 109 U/L 40-150 (BEAKER) (test mllf=340) BILIRUBIN TOTAL (BEAKER) 1.3 mg/dL 0.2-1.2 (test qwga=375) SODIUM (BEAKER) (test 140 meq/L 136-145 tidi=908) POTASSIUM (BEAKER) (test 4.0 meq/L 3.5-5.1 ewyq=580) CHLORIDE (BEAKER) (test 111 meq/L 98-107 rowi=975) CO2 (BEAKER) (test 21 meq/L 22-29 pxwd=310) BLOOD UREA NITROGEN 10 mg/dL 7-21 (BEAKER) (test tluy=155) CREATININE (BEAKER) (test 0.79 mg/dL 0.57-1.25 ncua=914) GLUCOSE RANDOM (BEAKER) 88 mg/dL 70-105 (test sczb=284) CALCIUM (BEAKER) (test 7.8 mg/dL 8.4-10.2 ekgv=484) AST (SGOT) (BEAKER) (test 38 U/L 5-34 hrvt=888) ALT (SGPT) (BEAKER) (test 19 U/L 6-55 kmyo=360) EGFR (BEAKER) (test 102 mL/min/1.73 sq ESTIMATED GFR IS NOT xfys=8945) m ACCURATE CREATININE CLEARANCE IN PREDICTING GLOMERULAR FILTRATION RATE. ESTIMATED GFR IS NOT APPLICABLE FOR DIALYSIS PATIENTS. LACTATE DEHYDROGENASE (LDH)2017-10-11 18:04:00 Test Item Value Reference Range Comments LACTATE DEHYDROGENASE (BEAKER) (test cxad=170) 197 U/L 125-220 IRON, TIBC, % SAT. (WITHOUT FERRITIN)2017-10-11 18:04:00 Test Item Value Reference Range Comments IRON (BEAKER) (test yhba=687) 7 ug/dL 40-160 TOTAL IRON BINDING CAPACITY (BEAKER) (test 144 ug/dL 250-450 pnkh=053) IRON % SATURATION (2) (BEAKER) (test exmq=5591) 5 % 20-55 [id number] 17:40:00 Test Item Value Reference Range Comments D-DIMER QUANTITATIVE (BEAKER) (test uxlz=428) 2.28 MG/L FEU <0.50 Intended Use: The [...] Comments WHITE BLOOD CELL COUNT (BEAKER) (test labj=954) 14.9 K/ L 3.5-10.5 RED BLOOD CELL COUNT (BEAKER) (test fzgf=698) 2.57 M/ L 4.63-6.08 HEMOGLOBIN (BEAKER) (test cmwh=226) 7.5 GM/DL 13.7-17.5 HEMATOCRIT (BEAKER) (test ickj=350) 24.1 % 40.1-51.0 MEAN CORPUSCULAR VOLUME (BEAKER) (test frfe=247) 93.8 fL 79.0-92.2 MEAN CORPUSCULAR HEMOGLOBIN (BEAKER) (test 29.2 pg 25.7-32.2 dmxu=048) MEAN CORPUSCULAR HEMOGLOBIN CONC (BEAKER) (test 31.1 GM/DL 32.3-36.5 ofbq=113) RED CELL DISTRIBUTION WIDTH (BEAKER) (test 17.4 % 11.6-14.4 fxjw=234) PLATELET COUNT (BEAKER) (test bviu=797) 183 K/CU MM 150-450 MEAN PLATELET VOLUME (BEAKER) (test vuar=045) 10.2 fL 9.4-12.4 NUCLEATED RED BLOOD CELLS (BEAKER) (test 0 /100 WBC 0-0 plbd=555) [id number] 17:39:00 Test Item Value Reference Range Comments FIBRINOGEN LEVEL (BEAKER) (test rlbb=602) 474 mg/dl 225-434 [id number] 17:39:00 Test Item Value Reference Range Comments PROTIME (BEAKER) (test ebux=369) 17.3 seconds 11.7-14.7 INR (BEAKER) (test erlz=268) 1.4 <=5.9 PARTIAL THROMBOPLASTIN TIME (BEAKER) (test 40.2 seconds 22.5-36.0 pajt=768) RECOMMENDED COUMADIN/WARFARIN INR THERAPY RANGESSTANDARD DOSE: 2.0 - 3.0 Includes: PROPHYLAXIS forvenous thrombosis, systemic embolization; TREATMENT for venous thrombosis and/or pulmonary embolus.HIGH RISK: Target INR is 2.5-3.5 for patients with mechanical heart valves.RETICULOCYTE [id number] 17:37:00 Test Item Value Reference Range Comments RETICULOCYTE COUNT PCT (BEAKER) (test lexo=189) 2.2 % 0.5-1.8 CBC W/PLT COUNT & AUTO [id number] 17:26:00 Test Item Value Reference Range Comments WHITE BLOOD CELL COUNT (BEAKER) (test jmkn=369) 14.3 K/ L 3.5-10.5 RED BLOOD CELL COUNT (BEAKER) (test befa=051) 2.01 M/ L 4.63-6.08 HEMOGLOBIN (BEAKER) (test bulb=271) 5.8 GM/DL 13.7-17.5 HEMATOCRIT (BEAKER) (test ehoz=614) 18.8 % 40.1-51.0 MEAN CORPUSCULAR VOLUME (BEAKER) (test gzup=297) 93.5 fL 79.0-92.2 MEAN CORPUSCULAR HEMOGLOBIN (BEAKER) (test 28.9 pg 25.7-32.2 hcaf=672) MEAN CORPUSCULAR HEMOGLOBIN CONC (BEAKER) (test 30.9 GM/DL 32.3-36.5 sioj=333) RED CELL DISTRIBUTION WIDTH (BEAKER) (test 19.0 % 11.6-14.4 tjej=110) PLATELET COUNT (BEAKER) (test jkkr=011) 187 K/CU MM 150-450 MEAN PLATELET VOLUME (BEAKER) (test jkwt=814) 10.4 fL 9.4-12.4 NUCLEATED RED BLOOD CELLS (BEAKER) (test 0 /100 WBC 0-0 hfer=314) NEUTROPHILS RELATIVE PERCENT (BEAKER) (test 87 % cvnp=046) LYMPHOCYTES RELATIVE PERCENT (BEAKER) (test 7 % ipxl=668) MONOCYTES RELATIVE PERCENT (BEAKER) (test 5 % wtmk=862) EOSINOPHILS RELATIVE PERCENT (BEAKER) (test 0 % vrbk=410) BASOPHILS RELATIVE PERCENT (BEAKER) (test 0 % knmm=695) NEUTROPHILS ABSOLUTE COUNT (BEAKER) (test 12.46 K/ L 1.78-5.38 rzlo=210) LYMPHOCYTES ABSOLUTE COUNT (BEAKER) (test 1.05 K/ L 1.32-3.57 qevm=858) MONOCYTES ABSOLUTE COUNT (BEAKER) (test 0.71 K/ L 0.30-0.82 gvcp=731) EOSINOPHILS ABSOLUTE COUNT (BEAKER) (test 0.01 K/ L 0.04-0.54 cauy=530) BASOPHILS ABSOLUTE COUNT (BEAKER) (test 0.01 K/ L 0.01-0.08 epew=427) IMMATURE GRANULOCYTES-RELATIVE PERCENT (BEAKER) 1 % 0-1 (test kpec=6634) [id number] 16:21:00 Test Item Value Reference Range Comments PARTIAL THROMBOPLASTIN TIME (BEAKER) (test 38.0 seconds 22.5-36.0 zvmk=226) PROTHROMBIN [id number] 16:20:00 Test Item Value Reference Range Comments PROTIME (BEAKER) (test khnp=440) 17.2 seconds 11.7-14.7 INR (BEAKER) (test edkc=981) 1.4 <=5.9 RECOMMENDED COUMADIN/WARFARIN INR THERAPY RANGESSTANDARD DOSE: 2.0 - 3.0 Includes: PROPHYLAXIS forvenous thrombosis, systemic embolization; TREATMENT for venous thrombosis and/or pulmonary embolus.HIGH RISK: Target INR is 2.5-3.5 for patients with mechanical heart valves.[id number] 16:20:00 Test Item Value Reference Range Comments FIBRINOGEN LEVEL (BEAKER) (test bbij=871) 441 mg/dl 225-434 HGB/HCT (H&H) - STAT [id number] 15:33:00 Test Item Value Reference Range Comments HEMOGLOBIN (BEAKER) (test zgvy=358) 4.2 g/dL 13.0-16.8 HEMATOCRIT (BEAKER) (test owyk=893) 12.0 % 40.0-50.0 BLOOD GAS, [id number] 15:33:00 Test Item Value Reference Range Comments PH ARTERIAL (BEAKER) (test ivzm=083) 7.36 7.35-7.45 PCO2 ARTERIAL (BEAKER) (test nprh=385) 41 mmHg 35-45 PO2 ARTERIAL (BEAKER) (test mtqn=265) 119 mmHg 80-90 O2 SATURATION ARTERIAL (BEAKER) (test zhnr=940) 98.2 % 96.0-97.0 HCO3 ARTERIAL (BEAKER) (test lptp=304) 23 mmol/L 21-29 BASE EXCESS ARTERIAL (BEAKER) (test yrnr=631) -2.2 mmol/L -2.0-3.0 PATIENT TEMPERATURE (BEAKER) (test mqno=5653) 36.8 C FIO2 (BEAKER) (test vmbn=4891) 100.0 % GLUCOSE-STAT [id number] 15:32:00 Test Item Value Reference Range Comments GLUCOSE RANDOM (BEAKER) (test wxbd=747) 82 mg/dL 70-110 SODIUM NA-STAT [id number] 15:32:00 Test Item Value Reference Range Comments SODIUM (BEAKER) (test mall=316) 136 meq/L 135-148 POTASSIUM-STAT [id number] 15:32:00 Test Item Value Reference Range Comments POTASSIUM (BEAKER) (test flci=981) 3.6 meq/L 3.6-5.5
[2019-01-13 20:27] LABS: Absolute Lymphocytes (CBC) 0.3 K/uL (0.7-4.9); Absolute Monocytes 0.5 K/uL (0.1-1.3); Absolute Neutrophil 26.7 K/uL (1.8-8.0); Basophils % 0.3 % (0-1.3); Hematocrit 31.5 % (39.6-49.0); MPV 8.6 fL (7.6-11.3); Monocytes % 1.7 % (3.3-12.3); RBC Red Blood Cell Count 3.06 M/uL (4.33-5.43)
[2019-01-13 20:29] LABS: Protime INR 1.96
[2019-01-13] MEDS ORDERED: NA CHLORIDE 0.9% 1,000 ML ONE ×3 (20:45→23:07)
[2019-01-13 20:51] LABS: Blood Morphology Comment NOT SEEN (NOT SEEN); Platelet Estimate INCR
[2019-01-13 20:54] LABS: ALT/SGPT 278 U/L (12-78); Albumin 2.4 g/dL (3.4-5.0); Alkaline Phosphatase 183 U/L (45-117); BUN Blood Urea Nitrogen 82 mg/dL (7-18); Bilirubin Direct 1.1 mg/dL (0-0.2); Bilirubin Total 1.5 mg/dL (0.2-1.0); Creatine Phosphokinase 17 U/L (39-308); Glucose Level 80 mg/dL (74-106); Lipase 87 U/L (73-393); Potassium 5.4 mmol/L (3.5-5.1); Protein, Total 7.4 g/dL (6.4-8.2); Sodium Level 133 mmol/L (136-145); Troponin (Emerg Dept Use Only) < 0.02 ng/mL (0.0-0.045)
--- NOTE | 2019-01-13 20:56 | RAD REPORT ---
EXAM DESCRIPTION: CT - Abdomen Pelvis Wo Contrast - 01/13/2019 8:35 pm CLINICAL HISTORY: Abdominal pain COMPARISON: CT imaging October 2017 TECHNIQUE: Axial [address] imaging of the abdomen and pelvis was performed without IV contrast. No IV contrast was given because of allergy, abnormal renal function, patient refusal or physician re quest. Oral contrast was given. All CT scans are performed using dose optimization technique as appropriate and may include automated exposure control or mA/KV adjustment according to patient size. FINDINGS: No acute pleural or parenchymal process. No cardiomegaly. Minimal amount of pericardial ef fusion is present. The liver, spleen and pancreas show no suspicious findings on non-contrast imaging. Several small gal lstones are present layering in the dependent portion of the gallbladder. No active gallbladder or bi liary tree process suspected. [id number] bilateral hydronephrosis is present down to the UVJ level. No obstructing calculus o r mass identified. Dilatation is slightly worse than the comparison study. Urinary bladder is distend ed with bladder wall thickening. No bladder calculus or mass. No significant adrenal finding. Isoden se renal masses and pyelonephritis cannot be excluded in the absence of IV contrast. No gastric dilatation or gastric wall thickening. A small hiatal hernia is present. No dilation of th e colon. Diverticulosis is present without diverticulitis. Prominent small bowel loops are present wi thout a small-bowel obstruction identified. No free air or pneumatosis. Small amount of ascites is pr esent primarily adjacent to the liver and spleen. No hernia, mass or bulky lymphadenopathy. No suspicious bony findings. IMPRESSION: Multiple prominent small bowel loops without small bowel obstruction. No free air or surgically emergent finding. Moderate severity bilateral hydronephrosis down to the UVJ level without an obstructing calculus or m ass seen. Urinary bladder wall is thickened. Patient may have a urethra or prostate outlet obstructio n. Ascites is present new from prior imaging. This is small in quantity. Cholelithiasis without acute gallbladder or biliary tree finding. Full assessment is limited is the absence of IV contrast.
--- NOTE | 2019-01-13 20:57 | RAD REPORT ---
EXAM DESCRIPTION: RAD - Chest Single View - 01/13/2019 8:45 pm CLINICAL HISTORY: Abdominal pain COMPARISON: February 2018 TECHNIQUE: AP portable chest image was obtained 2043 hours . FINDINGS: No acute lung parenchymal process. The small nodular focus in the lower right lung field d etailed on the prior study is not identifiable. Heart and vasculature are normal. No measurable pleur al effusion and no pneumothorax. No acute bony abnormality seen. No acute aortic findings suspected. IMPRESSION: No acute cardiopulmonary process. No significant change from comparison.
[2019-01-13 21:04] LABS: AST/SGOT 315 U/L (15-37); Bicarbonate 12 mmol/L (21-32)
[2019-01-13] MEDS ORDERED: FENTANYL CITR 100 MCG/2 ML ONE (21:09)
[2019-01-13] MEDS ORDERED: PIPER/TAZO/NS 3.375gm 3.375 GM/100 ML BAG ONE (21:17)
--- NOTE | 2019-01-13 22:32 | ER ---
Nurse's Notes [facility] Name: Manjit Ba Age: 58 yrs Sex: Male : 1960 Arrival Date: 01/13/2019 Time: 18:52 Bed 20 Private MD: Diagnosis: Severe sepsis;Urinary tract infection, site not specified Presentation: 01/13 18:52 Presenting complaint: Patient states: abd pain x "a few days", N/V that began ss yesterday. Pt has a history of stage IV bladder CA. Transition of care: patient was not received from another setting of care. Onset of symptoms is unknown. Risk Assessment: Do you want to hurt yourself or someone else? Patient reports no desire to harm self or others. Initial Sepsis Screen: Does the patient meet any 2 criteria? No. Patient's initial sepsis screen is negative. Does the patient have a suspected source of infection? Yes: Dysuria/Frequency/Urgency/UTI. Care prior to arrival: None. 18:52 Method Of Arrival: EMS: [facility] ss 18:52 Acuity: KRISS 2 ss Historical: - Allergies: 18:54 No Known Allergies; ss - PMHx: 18:54 Chronic Kidney Infection; Stage IV bladdre CA; ss 18:56 HIV; ss - PSHx: 18:54 None; ss - Immunization history:: Adult Immunizations unknown. - Social history:: The patient lives at home, Smoking status: Patient/guardian denies using tobacco. - Ebola Screening: : No symptoms or risks identified at this time. Screenin:24 Abuse screen: Denies threats or abuse. Denies injuries from another. Nutritional lp1 screening: No deficits noted. Tuberculosis screening: No symptoms or risk factors identified. Fall Risk Total Moore Fall Scale indicates High Risk Score (45 or more points). Fall prevention measures have been instituted. Side Rails Up X 2 Frequent Obs/Assessments Occuring As available patient and family educated on Fall Prevention Program and Strategies. Assessment: 19:30 General: Appears uncomfortable, ill, Behavior is anxious. Pain: Complains of pain in lp1 suprapubic area Pain currently is 9 out of 10 on a pain scale. Neuro: Level of Consciousness is awake, alert, obeys commands, Oriented to person, place, situation. Cardiovascular: Capillary refill < 3 seconds in bilateral fingers toes. Respiratory: Airway is patent Respiratory effort is shallow, Respiratory pattern is tachypnea Breath sounds are clear bilaterally. GI: Abdomen is flat, Bowel sounds present X 4 quads. Abd is soft and non tender X 4 quads. Reports nausea, vomiting. : No signs and/or symptoms were reported regarding the genitourinary system. EENT: No signs and/or symptoms were reported regarding the EENT system. Derm: Skin is intact, Skin is clammy, Skin is pale. Musculoskeletal: No deficits noted. 20:50 Reassessment: Patient returned from CT; requesting water, informed of waiting for CT lp1 results. 21:30 Reassessment: Patient appears in no apparent distress at this time. Patient and/or lp1 family updated on plan of care and expected duration. Pain level reassessed. Patient resting, eyes closed, respirations shallow, even. 22:20 : Conteh in place to gravity drainage Urine is cloudy. lp1 22:45 Reassessment: Report called to JUAN Albarado at [facility] for patient to transfer to [facility] ICU. 23:25 Reassessment: EMS at bedside for transfer. lp1 Vital Signs: 18:56 BP 111 / 74; Pulse 104; Resp 20; Pulse Ox 98% on R/A; ss 19:30 BP 106 / 65; Pulse 101; Resp 28; Temp 97.7; Pulse Ox 100% on R/A; Weight 68.04 kg; Pain lp1 9/10; 20:00 BP 98 / 60; Pulse 99; Resp 30; Pulse Ox 100% on R/A; lp1 21:00 BP 108 / 63; Pulse 92; Resp 25; Pulse Ox 100% on R/A; lp1 21:30 BP 112 / 66; Pulse 90; Resp 26; Pulse Ox 100% on R/A; lp1 22:00 BP 120 / 65; Pulse 88; Resp 25; Pulse Ox 100% on R/A; lp1 22:15 BP 115 / 66; Pulse 88; Resp 25; Temp 97.4(O); Pulse Ox 100% on R/A; lp1 22:30 BP 113 / 60; Pulse 89; Resp 23; Pulse Ox 100% on R/A; lp1 23:00 BP 117 / 66; Pulse 91; Resp 23; Pulse Ox 100% on R/A; lp1 23:27 BP 122 / 74; Pulse 92; Resp 24; Pulse Ox 100% on R/A; Pain 5/10; lp1 ED Course: 18:52 Patient arrived in ED. ss 18:53 Triage completed. ss 18:54 Arm band placed on right wrist. ss 19:14 Mariann Alfaro, RN is Primary Nurse. lp1 19:30 Patient has correct armband on for positive identification. Placed in gown. Bed in low lp1 position. Side rails up X2. laboratory monitor on. Pulse ox on. NIBP on. 19:58 Corey Carbajal MD is Attending Physician. gs 20:00 Missed attempt(s): 22 gauge Bleeding controlled, band aid applied, catheter tip intact. ar5 20:08 Inserted saline lock: 20 gauge in right forearm, using aseptic technique. Blood ar5 collected. 20:[address] vm2 20:35 CT Abd/Pelvis - Without Cont In Process Unspecified. EDMS 20:42 Notified ED physician of a critical lab result(s). WBCs of 27.5. Dr Carbajal notified. bb 20:43 Chest Single View XRAY In Process Unspecified. EDMS 20:57 EKG done, by ED staff, reviewed by Corey Carbajal MD. lp1 21:05 Notified ED physician of a critical lab result(s). Creatinine 5.55, CO2 12, AST 315. Dr zoey Carbajal notified. 22:15 Conteh cath inserted, using sterile technique, 14 Fr., by vt, balloon inflated, to lp1 gravity drainage, urine specimen collected. other Coude. 22:18 No provider procedures requiring assistance completed. lp1 23:26 Patient transferred, IV remains in place. lp1 Administered Medications: 20:59 Drug: NS 0.9% 1000 ml Route: IV; Rate: 1 bolus; Site: right forearm; lp1 21:57 Follow up: IV Status: Completed infusion; IV Intake: 1000ml lp1 20:59 Drug: fentaNYL (PF) 50 mcg Route: IVP; Site: right forearm; lp1 21:30 Follow up: Response: Pain is decreased lp1 21:05 Drug: Zosyn 3.375 grams Route: IVPB; Infused Over: 60 mins; Site: right forearm; lp1 21:40 Follow up: IV Status: Completed infusion; IV Intake: 100ml lp1 21:11 Drug: NS 0.9% 1000 ml Route: IV; Rate: 1000 ml; Site: right forearm; lp1 22:16 Follow up: IV Status: Completed infusion; IV Intake: 1000ml lp1 22:59 Drug: NS 0.9% 1000 ml Route: IV; Rate: 125 ml/hr; Site: right forearm; lp1 22:59 Follow up: IV Status: Infusion continued upon transfer lp1 Point of Care Testing: Blood Glucose: 20:59 Blood Glucose: 74 mg/dL; lp1 Ranges: Intake: 21:40 IV: 100ml; Total: 100ml. lp1 21:57 IV: 1000ml; Total: 1100ml. lp1 22:16 IV: 1000ml; Total: 2100ml. lp1 23:28 IV: 2100ml (IV Fluid); Total: 4200ml. lp1 Output: 23:28 Urine: 700ml (Conteh); Total: 700ml. lp1 Outcome: 22:18 critical lp1 22:18 Instructed on the need for transfer. 22:32 ER care complete, transfer ordered by . 23:28 Transferred by ground EMS to [facility], Transfer form lp1 completed. X-rays sent w/ patient. 23:30 Patient left the ED. lp1 Addendum: 01/17/2019 10:10 Addendum: Culture Results: Positive urine culture. Phone call Attempt #1 [facility] notified, i w culture report faxed to facility. Signatures: Dispatcher [employer] EDMary Kellogg RN RN bb Williams, Irene, RN RN iw Smirch, Shelby, RN RN ss Pena, Laura, RN RN lp1 Nora Nelson Gregory, MD MD gs Robles, Autumn ar5 Corrections: (The following items were deleted from the chart) 01/13 22:37 22:15 BP 115 / 66; Pulse 88bpm; Resp 25bpm; Pulse Ox 100% RA; lp1 lp1
[2019-01-13 22:33] LABS: Urine Blood 2+ (NEG); Urine Glucose NEGATIVE (NEG); Urine Protein 3+ (NEG); Urine Specific Gravity 1.025 (1.005-1.030)
--- NOTE | 2019-01-13 22:33 | EDPHYS ---
Physician Documentation [facility] Name: Manjit Ba Age: 58 yrs Sex: Male : 1960 Arrival Date: 01/13/2019 Time: 18:52 Bed 20 Private MD: ED Physician Corey Carbajal HPI: 01/13 22:13 This 58 yrs old Male presents to ER via EMS with complaints of Abdominal Pain.gs 22:13 The patient presents with abdominal pain. Onset: The symptoms/episode began/occurred gs acutely, 3 day(s) ago, and became worse and became persistent. Associated signs and symptoms: Pertinent positives: fever. The symptoms are described as sharp. Modifying factors: The symptoms are alleviated by. 22:17 Severity of pain: At its worst the pain was moderate in the emergency department the gs pain is unchanged. The patient has not experienced similar symptoms in the past. The patient has not recently seen a physician. Historical: - Allergies: 18:54 No Known Allergies; ss - PMHx: 18:54 Chronic Kidney Infection; Stage IV bladdre CA; ss 18:56 HIV; ss - PSHx: 18:54 None; ss - Immunization history:: Adult Immunizations unknown. - Social history:: The patient lives at home, Smoking status: Patient/guardian denies using tobacco. - Ebola Screening: : No symptoms or risks identified at this time. ROS: 22:17 All other systems are negative. gs Exam: 22:17 Head/Face: Normocephalic, atraumatic. Eyes: Pupils equal round and reactive to light, gs extra-ocular motions intact. Lids and lashes normal. Conjunctiva and sclera are non-icteric and not injected. Cornea within normal limits. Periorbital areas with no swelling, redness, or edema. ENT: Nares patent. No nasal discharge, no septal abnormalities noted. Tympanic membranes are normal and external auditory canals are clear. Oropharynx with no redness, swelling, or masses, exudates, or evidence of obstruction, uvula midline. Mucous membranes moist. Neck: Trachea midline, no thyromegaly or masses palpated, and no cervical lymphadenopathy. Supple, full range of motion without nuchal rigidity, or vertebral point tenderness. No Meningismus. Chest/axilla: Normal chest wall appearance and motion. Nontender with no deformity. No lesions are appreciated. 22:17 Back: No spinal tenderness. No costovertebral tenderness. Full range of motion. Skin: Warm, dry with normal turgor. Normal color with no rashes, no lesions, and no evidence of cellulitis. MS/ Extremity: Pulses equal, no cyanosis. Neurovascular intact. Full, normal range of motion. Neuro: Awake and alert, GCS 15, oriented to person, place, time, and situation. Cranial nerves II-XII grossly intact. Motor strength 5/5 in all extremities. Sensory grossly intact. Cerebellar exam normal. Normal gait. 22:17 Constitutional: The patient appears alert, awake, frail, uncomfortable. 22:17 Cardiovascular: Rate: tachycardic, Rhythm: regular, Pulses: no pulse deficits are appreciated. 22:17 ECG was reviewed by the Attending Physician. 22:17 Respiratory: Respirations: tachypnea, Breath sounds: are clear throughout. 22:17 Abdomen/GI: Inspection: distension, that is mild, Palpation: moderate abdominal tenderness, in all quadrants. Vital Signs: 18:56 BP 111 / 74; Pulse 104; Resp 20; Pulse Ox 98% on R/A; ss 19:30 BP 106 / 65; Pulse 101; Resp 28; Temp 97.7; Pulse Ox 100% on R/A; Weight 68.04 kg; Pain lp1 9/10; 20:00 BP 98 / 60; Pulse 99; Resp 30; Pulse Ox 100% on R/A; lp1 21:00 BP 108 / 63; Pulse 92; Resp 25; Pulse Ox 100% on R/A; lp1 21:30 BP 112 / 66; Pulse 90; Resp 26; Pulse Ox 100% on R/A; lp1 22:00 BP 120 / 65; Pulse 88; Resp 25; Pulse Ox 100% on R/A; lp1 22:15 BP 115 / 66; Pulse 88; Resp 25; Temp 97.4(O); Pulse Ox 100% on R/A; lp1 22:30 BP 113 / 60; Pulse 89; Resp 23; Pulse Ox 100% on R/A; lp1 23:00 BP 117 / 66; Pulse 91; Resp 23; Pulse Ox 100% on R/A; lp1 23:27 BP 122 / 74; Pulse 92; Resp 24; Pulse Ox 100% on R/A; Pain 5/10; lp1 MDM: 20:07 Patient medically screened. gs 22:17 Differential diagnosis: bowel obstruction, diverticulitis, Peptic Ulcer Disease, Perf. gs Duodenal Ulcer, urinary tract infection, sepsis. Data reviewed: vital signs, nurses notes, lab test result(s), EKG, radiologic studies. Counseling: I had a detailed discussion with the patient and/or guardian regarding: the historical points, exam findings, and any diagnostic results supporting the discharge/admit diagnosis, the need to transfer to another facility. Response to treatment: the patient's symptoms have mildly improved after treatment. 01/13 20:10 Order name: Basic Metabolic Panel 01/13 20:10 Order name: Blood Culture Adult (2) 01/13 20:10 Order name: CBC with Diff 01/13 20:10 Order name: CPK 01/13 20:10 Order name: Lactate; Complete Time: 21:02 01/13 20:10 Order name: LFT's; Complete Time: 21: 01/13 20:10 Order name: Lipase; Complete Time: 21: 01/13 20:10 Order name: Procalcitonin; Complete Time: 21:46 01/13 20:10 Order name: Protime (+inr); Complete Time: 21:02 01/13 20:10 Order name: Troponin (emerg Dept Use Only); Complete Time: 21:08 01/13 20:10 Order name: Urine Microscopic Only; Complete Time: 22:50 01/13 20:12 Order name: Basic Metabolic Panel; Complete Time: 21:08 [facility] 01/13 20:12 Order name: Blood Culture [facility] 01/13 20:12 Order name: CBC with Automated Diff; Complete Time: 21:02 [facility] 01/13 20:10 Order name: Chest Single View XRAY; Complete Time: 21:02 01/13 20:10 Order name: Accucheck; Complete Time: 22:19 01/13 20:10 Order name: Cardiac monitoring; Complete Time: 20:27 01/13 20:10 Order name: EKG - Nurse/Tech; Complete Time: 20:59 01/13 20:10 Order name: CT Abd/Pelvis - Without Cont; Complete Time: 21:02 01/13 20:12 Order name: Creatine Phosphokinase; Complete Time: 21:08 [facility] 01/13 20:51 Order name: Manual Differential; Complete Time: 21:02 [facility] 01/13 22:26 Order name: Urine Dipstick--Ancillary (enter results); Complete Time: 22:50 [facility] 01/13 22:28 Order name: Urine Culture [facility] 01/13 22:28 Order name: Urine Culture [facility] 01/13 23:02 Order name: Glucose, Ancillary Testing [facility] 01/13 20:10 Order name: IV Saline Lock - Large Bore; Complete Time: :58 01/13 20:10 Order name: Labs collected and sent; Complete Time: :58 01/13 20:10 Order name: O2 Per Protocol; Complete Time: 20:28 01/13 20:10 Order name: O2 Sat Monitoring; Complete Time: 20:28 01/13 20:10 Order name: Urine Dipstick-Ancillary (obtain specimen); Complete Time: 22:26 01/13 21:06 Order name: Conteh; Complete Time: 22:16 gs EC:17 Rate is 95 beats/min. Rhythm is regular. MN interval is normal. QRS interval is normal. gs Q waves are Old in leads II, III, aVF. T waves are Inverted in lead aVL. Clinical impression: Abnormal EKG without significant change. Interpreted by me. Administered Medications: 20:59 Drug: NS 0.9% 1000 ml Route: IV; Rate: 1 bolus; Site: right forearm; lp1 21:57 Follow up: IV Status: Completed infusion; IV Intake: 1000ml lp1 20:59 Drug: fentaNYL (PF) 50 mcg Route: IVP; Site: right forearm; lp1 21:30 Follow up: Response: Pain is decreased lp1 21:05 Drug: Zosyn 3.375 grams Route: IVPB; Infused Over: 60 mins; Site: right forearm; lp1 21:40 Follow up: IV Status: Completed infusion; IV Intake: 100ml lp1 21:11 Drug: NS 0.9% 1000 ml Route: IV; Rate: 1000 ml; Site: right forearm; lp1 22:16 Follow up: IV Status: Completed infusion; IV Intake: 1000ml lp1 22:59 Drug: NS 0.9% 1000 ml Route: IV; Rate: 125 ml/hr; Site: right forearm; lp1 22:59 Follow up: IV Status: Infusion continued upon transfer lp1 Point of Care Testing: Blood Glucose: 20:59 Blood Glucose: 74 mg/dL; lp1 Ranges: Critical Glucose Levels:Adult <50 mg/dl or >400 mg/dl <40 mg/dl or >180 mg/dl Disposition: 01/13/19 22:32 Transfer ordered to [facility]. Diagnosis are Severe sepsis, Urinary tract infection, site not specified. - Reason for transfer: Higher level of care. - Accepting physician is ayo. - Condition is Stable. - Problem is new. - Symptoms have improved. Critical care time excluding procedures: 22:17 Critical care time: Bedside Care: 10 minutes, Consultation: 10 minutes, Family gs Intervention: 10 minutes. Total time: 30 minutes Signatures: Dispatcher [employer] Elsi Nelson RN RN ss Mariann Alfaro RN RN lp1 Corey Carbajal MD MD gs Corrections: (The following items were deleted from the chart) 23:30 22:32 01/13/2019 22:32 Transfer ordered to [facility]. Diagnosis is Severe sepsis; lp1 Urinary tract infection, site not specified. Reason for transfer: Higher level of care. Accepting physician is ayo. Condition is Stable. Problem is new. Symptoms have improved. gs
[2019-01-13 22:34] LABS: Urine Bacteria LOADED /HPF (NONE SEEN); Urine Culture Reflex Order REFLEXED; Urine RBC >50 /HPF (NONE SEEN)
[2019-01-13 23:50] VITALS: O2SAT 100
[2019-01-13 23:57] VITALS: TEMP 97.4
[2019-01-14 00:35] VITALS: BP 122/74
--- NOTE | 2019-01-14 08:34 | EKG ---
Test Date: 2019-01-13 Test Time: 20:57:42 Research Clerk: ARYAN MEASUREMENT RESULTS: Intervals: Rate: 95 MN: 172 QRSD: 84 QT: 374 QTc: 469 Benge: P: 68 MN: 172 QRS: -6 T: 67 INTERPRETIVE STATEMENTS: Normal sinus rhythm Possible Left atrial enlargement Inferior infarct, age undetermined Abnormal ECG No previous ECG available for comparison Electronically Signed On 01-14-19 08:33:51 CDT by Bart Brower
== END 2019-01-13 23:30 | disposition short-term general hospital (02) ==
LOC: ER 18:46
DX: R65.20 Severe sepsis without septic shock (principal); A41.9 Sepsis, unspecified organism; N39.0 Urinary tract infection, site not specified; Z21 Asymptomatic human immunodeficiency virus [HIV] infection status; Z85.51 Personal history of malignant neoplasm of bladder
CPT/HCPCS: 36415; 51702; 71045; 74176; 80048; 80076; 81003; 81015; 82550; 82962; 83605; 83690; 84145; 84484; 85025; 85610; 87040; 87077; 87086; 87088; 87186; 93005; 96361; 96365; 96375; 99285; J2543; J3010; J7030

== ENCOUNTER 2022-10-07 11:24 | Emergency (ER) | payer OTHER, SELFPAY ==
--- OUTSIDE RECORDS SUMMARY | 2022-10-07 11:28 | XMS REPORT | Continuity of Care Document ---
:1960 Author Organization [facility] [place] t Address [address] [place] [address] Care Team Providers Name Role Phone KACEY ESPINOSA Primary Care Physician Unavailable MERRITT ALSTON Attending Clinician Unavailable GEETHA MARTINEZ Attending Clinician Unavailable YE CAMPO Attending Clinician Unavailable SARA Attending Clinician Unavailable SAGE CARR Attending Clinician Unavailable GIORGIO THOMAS Attending Clinician Unavailable GIORGIO THOMAS Attending Clinician Unavailable Merritt Alston MD Attending Clinician Doctor Unassigned, Hope Attending Clinician Unavailable Lab, Clc - Attending Clinician Unavailable Pathology Attending Clinician Unavailable PATHOLOGY Attending Clinician Unavailable Frankie Woodson MD Attending Clinician Alberto MATHEW, Gustavo Mendoza Attending Clinician Ulysses MATHEW, Noel Attending Clinician Anthony Pal MD, Jamal Attending Clinician Lucero Sharma MD Attending Clinician Shawn Rodriguez MD Attending Clinician Nellie MATHEW, Shannon Attending Clinician Lisa Ty MD Attending Clinician LISA TY Attending Clinician Unavailable Zeyad MATHEW, Kamaljit Attending Clinician Daily MATHEW, Sienna Attending Clinician Mak MATHEW, Kemi Correa Attending Clinician Noel Singh CRNA Attending Clinician Emani Jaimes MA Attending Clinician Unavailable Jaron MATHEW, Hunter Attending Clinician Raul Buenrostro MD Attending Clinician [phone] Mariann Gilliland CRNA Attending Clinician Delfina Cheney Attending Clinician [phone] DON KEY Attending Clinician Unavailable ELISABETH PAUL Attending Clinician Unavailable MERRITT ALSTON Admitting Clinician Unavailable SARA Admitting Clinician Unavailable Merritt Alston MD Admitting Clinician Lisa Ty MD Admitting Clinician SHAWN RODRIGUEZ Admitting Clinician Unavailable ELISABETH PAUL Admitting Clinician Unavailable Payers Payer Name Policy Type Policy Number Effective Date Expiration Date S ource MEDICARE PART A [id number] 2021 \\T\\ B 00:00:00 Problems Condition Condition Condition Status Onset Resolution Last Treating Co mments Source Name Details Category Date Date Treatment Clinician Date Recurrent Recurrent Disease Active 2020-09 Uni vers genital genital 0-02 ity of herpes herpes 00:00: [place] simplex simplex Medical Branch Gross Gross Disease Active Univers hematuria hematuria 05-27 ity of 00:00: [facility] Branch UGIB UGIB Disease Active Univers (upper (upper 05-27 ity of gastrointe gastrointe [place] st[place] stinal Medical bleed) bleed) Branch Fecal Fecal Disease Active Univers peritoniti peritoniti - it y of s s 00:00: [place] [facility] Branch Intraabdom Intraabdom Disease Active U nivers inal fluid inal fluid 9-19 it y of [place] 00 [place] Colovesica Colovesica Disease Active 2020- U nivers l fistula l fistula 9-15 ity of 00:00: [place] 00 Medical Branch Pancreatic Pancreatic Disease Active 2020- U nivers duct duct 9-10 ity of dilated dilated 00:00: [place] 00 Medical Branch Esophageal Esophageal Disease Active U nivers candidiasi candidiasi 9-10 it y of s s 00:00: [place] [facility] Branch Obstructiv Obstructiv Disease Active 2020- U nivers e 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 00:[place] 00 Medical Branch Duodenitis Duodenitis Disease Active U nivers 9-04 ity of 00:00: [place] [facility] Branch Symptomati Symptomati Disease Active U nivers c anemia c anemia 9-04 ity of 00:00: [place] 00 [facility] Human Human Problem Active [place] immunodefi Immunodefi 7-06 Co mmuni ciency ciency 00:00: ty virus Virus 00 Hospita infection Infection l Clinics 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 00:00: [place] protein-ca protein-ca 00 Me dical [facility] malnutriti malnutriti on on 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-18 ity of syndrome syndrome 00:00: [place] 00 [facility] Branch Anemia Anemia Problem Active [place] 8-30 [facility] 00:[facility]: [facility] Clinics Scrotal Scrotal Disease Active [facility] abscess [facility] Allergies, Adverse Reactions, Alerts Allergy Allergy Status Severity Reaction(s) Onset Inactive Treating Comm ents Source Name Type Date Date Clinician ABACAVIR DRUG Active Anaphylaxis Uni vers INGREDI 05-25 ity of 00:00: [place] 00 [facility] Branch Abacavir Propensi Active Anaphylaxis HLA B570 1 Univers ty to 05-25 Ag was ity of adverse 00:00: positive [place] reaction 00 on Medical s 05/21/18 - Branch patient is at high risk of developin g abacavir hypersens itivity program Social History Social Habit Start Date Stop Date Quantity Comments Source History of tobacco Chews Tobacco Uni versity of use [facility] Exposure to Not sure University of SARS-CoV-2 (event) [facility] Alcohol intake 2021-07-24 2021-07-24 .71 /d University of 00:00:00 00:00:00 [facility] Education 2021-05-13 2021-05-13 21 University of 00:00:00 00:00:00 [facility] Tobacco Comment 2021-05-13 2021-05-13 1 pack every 2 Unive rsity of 00:00:00 00:00:00 weeks [facility] Cigarettes smoked 2018-05-21 2018-05-21 Univers ity of current (pack per 00:00:00 00:00:00 [place] ) - Reported Branch Cigarette 2018-05-21 2018-05-21 University of pack-years 00:00:00 00:00:00 [facility] Tobacco use and 2018-05-21 2018-05-21 Former user Universi ty of exposure 00:00:00 00:00:00 [facility] Sex Assigned At [address] [facility] 00:00:00 00:00:00 [facility] Smoking Status Start Date Stop Date Source Heavy Tobacco Smoker [facility] Current every day smoker 2018-05-21 00:00:00 Uni versity of [facility] Medications Ordered Filled Start Stop Current Ordering Indication Dosage Frequency Signature Comments Components Source Medication Medication Date Date Medication? Clinician (SIG) Name Name traMADoL 50 2020-09 Yes 50mg Take 50 mg Univers mg tablet 2-15 by mouth ity of 03:40: every 4 [place] 02 (four) Medical hours as Branch needed. multivitami 2020-09 Yes 1{tbl} Take 1 Un jaja n tablet 2-15 tablet by ity of 03:40: mouth [place] 02 daily. Medical Branch metoprolol 2020-09 Yes 25mg Take 25 mg U nivers succinate 2-15 by mouth 2 ity of XL 25 mg 24 03:40: (two) [place] hr tablet 02 times Medical daily. Branch sulfamethox 2020-09 Yes 1{tbl} Take 1 Un jaja azole/trime 2-15 tablet by ity of thoprim 03:40: mouth. [place] (BACTRIM 02 "Three Medical ORAL) times q Branch week" ondansetron 2020-09 Yes 4mg Take 4 mg U nivers HCl (ZOFRAN 2-15 by mouth ity of ORAL) 03:40: as needed [place] 02 for Nausea Medical and Branch Vomiting (N/V). traMADoL 50 2020-09 Yes 50mg Take 50 mg Univers mg tablet 2-15 by mouth ity of 03:40: every 4 [place] 02 (four) Medical hours as Branch needed. multivitami 2020-09 Yes 1{tbl} Take 1 Un jaja n tablet 2-15 tablet by ity of 03:40: mouth [place] 02 daily. Medical Branch metoprolol 2020-09 Yes 25mg Take 25 mg U nivers succinate 2-15 by mouth 2 ity of XL 25 mg 24 03:40: (two) [place] hr tablet 02 times Medical daily. Branch sulfamethox 2020-09 Yes 1{tbl} Take 1 [facility] [place] azole/trime 2-15 tablet by ity of thoprim 03:40: mouth. [place] (BACTRIM 02 "Three Medical ORAL) times q Branch week" ondansetron 2020-09 Yes 4mg Take 4 mg U nivers HCl (ZOFRAN 2-15 by mouth ity of ORAL) 03:40: as needed [place] 02 for Nausea Medical and Branch Vomiting (N/V). cefdinir 2020-09 Yes [id number] 300mg Take 1 Un jaja 300 mg 2-15 capsule by ity of capsule 00:00: mouth [place] 00 every 12 Medical (twelve) Branch hours. cefdinir 2020-09- No [id number] 300mg Take 1 U nivers 300 mg 2-15 12-15 capsule by ity of capsule 00:00: 00:00 mouth [place] 00 :00 every 12 Medical (twelve) Branch hours for 10 days. lactated 2020-09 Yes 1000mL at 42 Univer s ringers IV 2-13 mL/hr, ity of infusion 18:30: 1,000 [place] 1[place]000 [place] 00 IV Medical Infusion, Branch CONTINUOUS , Starting on Fri08/20/21 at 1230, Until Discontinu ed, Routine, PACU lactated 2020-09- No 1000mL at 42 Unive rs ringers IV 2-13 12-14 mL/hr, ity of infusion 18:30: 00:04 1,000 mL, [place] 1,000 mL 00 :39 IV Medical Infusion, Branch CONTINUOUS , Starting on Fri08/20/21 at 1230, Until Fri08/20/21 at 1804, Routine, PACU HYDROcodone 2020-09- No 1{tbl} 1 tablet, Univers -acetaminop 2-13 12-13 Oral, ity of hen (NORCO 18:30: 19:10 ONCE, 1 [place] 5) 5-325 mg 00 :00 dose, On Medi carol tablet 1 Mon Branch tablet 08/20/21 at 1230, Routine, PACU HYDROcodone 2020-09- No 1{tbl} 1 tablet, Univers -acetaminop 2-13 12-13 Oral, ity of hen (NORCO 18:30: 19:10 ONCE, 1 [place] 5) 5-325 mg 00 :00 dose, On Medi carol tablet 1 Mon Branch tablet 08/20/21 at 1230, Routine, PACU HYDROmorphO 2020-09 Yes .2mg 0.2 mg, Uni vers ne 2-13 Slow IV ity of (DILAUDID) 18:23: Push, [place] injection 27 Q5MIN PRN, Medi carol 0.2 mg 10 doses, Branch Starting on Fri08/20/21 at 1223, Until Discontinu ed, Routine, Pain (scale 7-10), PACU
Us e approved by (Faculty): PACU USE -ANESTHESI A SERVICE-HY DROMORPHON E INJECTIONS HYDROmorphO 2020-09- No .2mg 0.2 mg, Un jaja ne 2-13 12-14 Slow IV ity of (DILAUDID) 18:23: 00:04 Push, [place] injection 27 :39 Q5MIN PRN, Medi carol 0.2 mg 10 doses, Branch Starting on Fri08/20/21 at 1223, Until Fri08/20/21 at 1804, Routine, Pain (scale 7-10), PACU
Us e approved by (Faculty): PACU USE -ANESTHESI A SERVICE-HY DROMORPHON E INJECTIONS FENTanyl PF 2020-09- No 25ug 25 mcg, Un jaja (SUBLIMAZE 2-13 12-13 Slow IV ity o f (PF)) 18:23: 19:20 Push, [place] injection 27 :00 Q5MIN PRN, Medi carol 25 mcg 4 doses, Branch Starting on Fri08/20/21 at 1223, Until Fri08/20/21 at 1320, Routine, Pain (scale 4-6), PACU ondansetron 2020-09- No 4mg 4 mg, Slow Univers (ZOFRAN 10-21 IV Push, ity of (PF)) 18:23: 19:17 PRN, 1 [place] injection 4 27 :00 dose, Medical mg Starting Branch on Fri08/20/21 at 1223, Until Fri08/20/21 at 1317, Routine, Nausea and Vomiting (N/V), PACU FENTanyl PF 2020-09- No 25ug 25 mcg, Un jaja (SUBLIMAZE 10-21 Slow IV ity o f (PF)) 18:23: 19:20 Push, [place] injection 27 :00 Q5MIN PRN, Medi carol 25 mcg 4 doses, Branch Starting on Fri08/20/21 at 1223, Until Fri08/20/21 at 1320, Routine, Pain (scale 4-6), PACU ondansetron 2020-09- No 4mg 4 mg, Slow Univers (ZOFRAN 10-21 IV Push, ity of (PF)) 18:23: 19:17 PRN, 1 [place] injection 4 27 :00 dose, Medical mg Starting Branch on Fri08/20/21 at 1223, Until Fri08/20/21 at 1317, Routine, Nausea and Vomiting (N/V), PACU bupivacaine 2020-09 Yes PRN, Univer s (preserv 2- Starting ity of free) 18:02: on Fri [place] (SENSORCAIN 08/20/21 Medi carol E MPF) 0.25 at 1202, Bran ch % (2.5 Until mg/mL) Discontinu injection ed, Routine, Intra-op sodium 2020-09 Yes PRN, Univers chloride 2-13 Starting ity of 0.9 % 18:02: on Mon [place] irrigation 08/20/21 Medic al solution at 1202, Branch Until Discontinu ed, Intra-op bupivacaine 2020-09- No PRN, Unive rs (preserv 10-21 Starting ity of free) 18:02: 00:04 on [facility] (SENSORCAIN 00 :39 08/20/21 Medi carol E MPF) 0.25 at 1202, Bran ch % (2.5 Until Mon mg/mL) 08/20/21 injection at 1804, Routine, Intra-op sodium 2020-09- No PRN, Univers chloride 10-21 Starting ity of 0.9 % 18:02: 00:04 on Fri [place] irrigation 00 :39 08/20/21 Medic al solution at 1202, Branch Until Fri08/20/21 at 1804, Intra-op iohexoL 2020-09 Yes PRN, Univers (OMNIPAQUE 2-13 Starting ity o f 300-50 mL)) 17:30: on Fri [place] injection 00 08/20/21 Medica l at 1130, Branch Until Discontinu ed, Routine, Intra-op iohexoL 2020-09- No PRN, Univers (OMNIPAQUE 2-13 14 Starting ity of 300-50 mL)) 17:30: 00:04 on Fri [facility] as injection 00 :39 08/20/21 Medica l at 1130, Branch Until Fri08/20/21 at 1804, Routine, Intra-op traMADoL 50 2020-09 Yes 50mg Take 50 mg Univers mg tablet 2-13 by mouth ity of 15:59: every 4 [place] 39 (four) Medical hours as Branch needed. multivitami 2020-09 Yes 1{tbl} Take 1 Un jaja n tablet 2-13 tablet by ity of 15:59: mouth [place] 39 daily. Medical Branch metoprolol 2020-09 Yes 25mg Take 25 mg U nivers succinate 2-13 by mouth 2 ity of XL 25 mg 24 15:59: (two) [place] hr tablet 39 times Medical daily. Branch sulfamethox 2020-09 Yes 1{tbl} Take 1 Un jaja azole/trime 2-13 tablet by ity of thoprim 15:59: mouth. [place] (BACTRIM 39 "Three Medical ORAL) times q Branch week" ondansetron 2021-1 Yes 4mg Take 4 mg U nivers HCl (ZOFRAN 2-13 by mouth ity of ORAL) 15:59: as needed [place] 39 for Nausea Medical and Branch Vomiting (N/V). traMADoL 50 2020-09 Yes 50mg Take 50 mg Univers mg tablet 2-13 by mouth ity of 15:59: every 4 [place] 39 (four) Medical hours as Branch needed. multivitami 2020-09 Yes 1{tbl} Take 1 Un jaja n tablet 2-13 tablet by ity of 15:59: mouth [place] 39 daily. Medical Branch metoprolol 2020-09 Yes 25mg Take 25 mg U nivers succinate 2-13 by mouth 2 ity of XL 25 mg 24 15:59: (two) [place] hr tablet 39 times Medical daily. Branch sulfamethox 2020-09 Yes 1{tbl} Take 1 Un jaja azole/trime 2-13 tablet by ity of thoprim 15:59: mouth. [place] (BACTRIM 39 "Three Medical ORAL) times q Branch week" ondansetron 2020-09 Yes 4mg Take 4 mg U nivers HCl (ZOFRAN 2-13 by mouth ity of ORAL) 15:59: as needed [place] 39 for Nausea Medical and Branch Vomiting (N/V). acetaminoph 2020-09- No [id number] 650mg Take 2 Univers en 2-13 12-14 tablets by ity of (TYLENOL) 00:00: 05:59 mouth [place] 325 mg 00 :00 every 6 Medical tablet (six) Branch hours as needed for Pain (scale 4-6). acetaminoph 2020-09- No [id number] 650mg Take 2 Univers en 2-13 12-14 tablets by ity of (TYLENOL) 00:00: 05:59 mouth [place] 325 mg 00 :00 every 6 Medical tablet (six) Branch hours as needed for Pain (scale 4-6). acetaminoph 2020-09- No [id number] 650mg Take 2 Univers en 2-13 12-14 tablets by ity of (TYLENOL) 00:00: 05:59 mouth [place] 325 mg 00 :00 every 6 Medical tablet (six) Branch hours as needed for Pain (scale 4-6). acetaminoph 2020-09- No [id number] 650mg Take 2 Univers en 2-13 12-14 tablets by ity of (TYLENOL) 00:00: 05:59 mouth [place] 325 mg 00 :00 every 6 Medical tablet (six) Branch hours as needed for Pain (scale 4-6). sulfamethox 2020-09- No 1{tbl} Take 1 U nivers azole-trime 10-14 tablet by it y of thoprim 16:34: 00:00 mouth. 1 [place] (BACTRIM 04 :00 po Mon, Medical DS) 800-160 Weds and Bran ch mg per Fri for tablet PJP prophylaxi s Nitrofurant 2020-09 [id number] 100mg Take 1 Univers oin&Nit. 10-14 capsule by ity of Macrocryst 00:00: 05:59 mouth 2 [place] 100 mg 00 :00 (two) Medical capsule times Branch daily for 10 days. Please let him to stop the Bactrim Nitrofurant 2020-09 [id number] 100mg Take 1 Univers oin&Nit. 10-14 capsule by ity of Macrocryst 00:00: 05:59 mouth 2 [place] 100 mg 00 :00 (two) Medical capsule times Branch daily for 10 days. Please let him to stop the Bactrim ergocalcife 2020-09 Yes [id number] 6400U Take 0.8 Univers rol, 1-02 mL by ity of vitamin D2, 00:00: mouth [place] 200 mcg/mL 00 daily. Medical (8,000 Branch unit/mL) oral drops amLODIPine 2020-09 Yes [id number] 10mg Take 1 U nivers 10 mg 1-02 tablet by ity of tablet 00:00: mouth [place] 00 daily. Medical Branch tamsulosin 2020-09 Yes [id number] .4mg Take 1 U nivers 0.4 mg 24 1-02 capsule by ity of hr capsule 00:00: mouth [place] 00 daily. Medical Branch ergocalcife 2020-09 Yes [id number] Take 0.8 Univers rol, 1-02 mL by ity of vitamin D2, 00:00: mouth [place] 200 mcg/mL 00 daily. Medical (8,000 Branch unit/mL) oral drops amLODIPine 2020-09 Yes [id number] 10mg Take 1 U nivers 10 mg 1-02 tablet by ity of tablet 00:00: mouth [place] 00 daily. Medical Branch tamsulosin 2020-09 Yes [id number] .4mg Take 1 U nivers 0.4 mg 24 1-02 capsule by ity of hr capsule 00:00: mouth [place] 00 daily. Medical Branch ergocalcife 2020-09 Yes [id number] 6400U Take 0.8 Univers rol, 1-02 mL by ity of vitamin D2, 00:00: mouth [place] 200 mcg/mL 00 daily. Medical (8,000 Branch unit/mL) oral drops amLODIPine 2020-09 Yes [id number] 10mg Take 1 U nivers 10 mg 1-02 tablet by ity of tablet 00:00: mouth [place] 00 daily. Medical Branch tamsulosin 2020-09 Yes [id number] .4mg Take 1 U nivers 0.4 mg 24 1-02 capsule by ity of hr capsule 00:00: mouth [place] 00 daily. Medical Branch ergocalcife 2020-09 Yes [id number] 6400U Take 0.8 Univers rol, 1-02 mL by ity of vitamin D2, 00:00: mouth [place] 200 mcg/mL 00 daily. Medical (8,000 Branch unit/mL) oral drops amLODIPine 2020-09 Yes [id number] 10mg Take 1 U nivers 10 mg 1-02 tablet by ity of tablet 00:00: mouth [place] 00 daily. Medical Branch tamsulosin 2020-09 Yes [id number] .4mg Take 1 U nivers 0.4 mg 24 1-02 capsule by ity of hr capsule 00:00: mouth [place] 00 daily. Medical Branch ergocalcife 2020-09 Yes [id number] 6400U Take 0.8 Univers rol, 1-02 mL by ity of vitamin D2, 00:00: mouth [place] 200 mcg/mL 00 daily. Medical (8,000 Branch unit/mL) oral drops amLODIPine 2020-09 Yes [id number] 10mg Take 1 U nivers 10 mg 1-02 tablet by ity of tablet 00:00: mouth [place] 00 daily. Medical Branch tamsulosin 2020-09 Yes [id number] .4mg Take 1 U nivers 0.4 mg 24 1-02 capsule by ity of hr capsule 00:00: mouth [place] 00 daily. Medical Branch melatonin 3 2020-09 Yes [id number] 3mg Take 1 Univers mg tablet 1-01 tablet by ity o f 00:00: mouth at [place] 00 bedtime. Medical Branch methocarbam 2020-09 Yes [id number] 500mg Take 10 mL Univers ol 50 mg/mL 1-01 through ity o f oral 00:00: enteral [place] suspension 00 tube every Med ical 8 (eight) Branch hours. valACYclovi 2020-09 Yes [id number] 500mg Take 1 Univers r 500 mg 1-01 tablet by ity of tablet 00:00: mouth 2 (two) Medical times Branch daily. metoprolol 2020-09 Yes [id number] 50mg Take 5 mL Univers 10 mg/mL 1-01 through ity of 00:00: enteral [place] 00 tube 2 Medical (two) Branch times daily. melatonin 3 2020-09 Yes [id number] 3mg Take 1 Univers mg tablet 1-01 tablet by ity o f 00:00: mouth at [place] 00 bedtime. Medical Branch methocarbam 2020-09 Yes [id number] 500mg Take 10 mL Univers ol 50 mg/mL 1-01 through ity o f oral 00:00: enteral [place] suspension 00 tube every Med ical 8 (eight) Branch hours. valACYclovi 2020-09 Yes [id number] 500mg Take 1 Univers r 500 mg 1-01 tablet by ity of tablet 00:00: mouth 2 (two) Medical times Branch daily. metoprolol 2020-09 Yes [id number] 50mg Take 5 mL Univers 10 mg/mL 1-01 through ity of 00:00: enteral [place] 00 tube 2 Medical (two) Branch times daily. melatonin 3 2020-09 Yes [id number] 3mg Take 1 Univers mg tablet 1-01 tablet by ity o f 00:00: mouth at [place] 00 bedtime. Medical Branch methocarbam 2020-09 Yes [id number] 500mg Take 10 mL Univers ol 50 mg/mL 1-01 through ity o f oral 00:00: enteral [place] suspension 00 tube every Med ical 8 (eight) Branch hours. valACYclovi 2020-09 Yes [id number] 500mg Take 1 Univers r 500 mg 1-01 tablet by ity of tablet 00:00: mouth 2 (two) Medical times Branch daily. metoprolol 2020-09 Yes [id number] 50mg Take 5 mL Univers 10 mg/mL 1-01 through ity of 00:00: enteral [place] 00 tube 2 Medical (two) Branch times daily. melatonin 3 2020-09 Yes [id number] 3mg Take 1 Univers mg tablet 1-01 tablet by ity o f 00:00: mouth at [place] 00 bedtime. Medical Branch methocarbam 2020-09 Yes [id number] 500mg Take 10 mL Univers ol 50 mg/mL 1-01 through ity o f oral 00:00: enteral [place] suspension 00 tube every Med ical 8 (eight) Branch hours. valACYclovi 2020-09 Yes [id number] 500mg Take 1 Univers r 500 mg 1-01 tablet by ity of tablet 00:00: mouth 2 [place] 00 (two) Medical times Branch daily. metoprolol 2020-09 Yes [id number] 50mg Take 5 mL Univers 10 mg/mL 1-01 through ity of 00:00: enteral [place] 00 tube 2 Medical (two) Branch times daily. melatonin 3 2020-09 Yes [id number] 3mg Take 1 Univers mg tablet 1-01 tablet by ity o f 00:00: mouth at [place] 00 bedtime. Medical Branch methocarbam 2020-09 Yes [id number] 500mg Take 10 mL Univers ol 50 mg/mL 1-01 through ity o f oral 00:00: enteral [place] suspension 00 tube every Med ical 8 (eight) Branch hours. valACYclovi 2020-09 Yes [id number] 500mg Take 1 Univers r 500 mg 1-01 tablet by ity of tablet 00:00: mouth 2 [place] 00 (two) Medical times Branch daily. metoprolol 2020-09 Yes [id number] 50mg Take 5 mL Univers 10 mg/mL 1-01 through ity of 00:00: enteral [place] 00 tube 2 Medical (two) Branch times daily. acetaminoph 2021- No [id number] 650mg Take 2 Univers en 2- 02-08 tablets by ity of (TYLENOL) 00:00: 05:59 mouth [place] 325 mg 00 :00 every 6 Medical tablet (six) Branch hours as needed for Pain (scale 1-3). acetaminoph 2021- No [id number] 650mg Take 2 Univers en 2- 02-08 tablets by ity of (TYLENOL) 00:00: 05:59 mouth [place] 325 mg 00 :00 every 6 Medical tablet (six) Branch hours as needed for Pain (scale 1-3). acetaminoph 2021- No [id number] 650mg Take 2 Univers en 2- 02-08 tablets by ity of (TYLENOL) 00:00: 05:59 mouth [place] 325 mg 00 :00 every 6 Medical tablet (six) Branch hours as needed for Pain (scale 1-3). acetaminoph 2021- No [id number] 650mg Take 2 Univers en 2- 02-08 tablets by ity of (TYLENOL) 00:00: 05:59 mouth [place] 325 mg 00 :00 every 6 Medical tablet (six) Branch hours as needed for Pain (scale 1-3). acetaminoph 2021- No [id number] 650mg Take 2 Univers en 2- 02-08 tablets by ity of (TYLENOL) 00:00: 05:59 mouth [place] 325 mg 00 :00 every 6 Medical tablet (six) Branch hours as needed for Pain (scale 1-3). bictegrav-e Yes [id number] 50mg Take 50 mg Univers mtricit-ten 7-15 by mouth ity of ofov ala 00:00: daily. [facility] Take on Medica l 50-200-25 50/200/25 Branc h mg Tab mg tablet once daily bictegrav-e Yes [id number] 50mg Take 50 mg Univers mtricit-ten 7-15 by mouth ity of ofov ala 00:00: daily. Take on Medica l 50-200-25 50/200/25 Branc h mg Tab mg tablet once daily bictegrav-e Yes [id number] 50mg Take 50 mg Univers mtricit-ten 7-15 by mouth ity of ofov ala 00:00: daily. ( Take on Medica l 50-200-25 50/200/25 Branc h mg Tab mg tablet once daily bictegrav-e Yes [id number] 50mg Take 50 mg Univers mtricit-ten 7-15 by mouth ity of ofov ala 00:00: daily. [place] ( Take on Medica l 50-200-25 50/200/25 Branc h mg Tab mg tablet once daily bictegrav-e 2018- Yes [id number] 50mg Take 50 mg Univers mtricit-ten 7-15 by mouth ity of ofov ala 00:00: daily. [place] (BIKTARVY) 00 Take on Medica l 50-200-25 50/200/25 Branc h mg Tab mg tablet once daily ferrous Yes [id number] 325mg Take 1 Un jaja sulfate 325 6-22 capsule by it y of mg (65 mg 00:00: mouth [place] iron) SR 00 daily with Medic al capsule breakfast. [place] ferrous Yes [id number] 325mg Take 1 Un [place] sulfate 325 6-22 capsule by it y of mg (65 mg 00:00: mouth [place] iron) SR 00 daily with Medic al capsule breakfast. Branch ferrous Yes [id number] 325mg Take 1 [place] sulfate 325 6-22 capsule by it y of mg (65 mg 00:00: mouth [place] iron) SR 00 daily with Medic al capsule breakfast. Branch ferrous Yes [id number] 325mg Take 1 Un [place] sulfate 325 6-22 capsule by it y of mg (65 mg 00:00: mouth [place] iron) SR 00 daily with Medic al capsule breakfast. Branch ferrous Yes [id number] 325mg Take 1 Un [place] sulfate 325 6-22 capsule by it y of mg (65 mg 00:00: mouth [place] iron) SR 00 daily with Medic al capsule breakfast. [place] Biktarvy 50 Biktarvy 50 No 1 Q1D Biktarvy [place] mg-200 mg-200 50 mg-200 Commun i mg-25 mg mg-25 mg mg-25 mg ty tablet Take tablet Take tablet Hospita 1 tablet 1 tablet Take 1 l every day every day tablet Cli nics by oral by oral every day route. route. by oral route. clotrimazol clotrimazol No 1 5xD clotrimazo [place] e 10 mg e 10 mg le 10 mg Commu ni shelly Take shelly Take shelly ty 1 tablet 5 1 tablet 5 Take 1 H ospita times a day times a day tablet 5 l by oral by oral times a Clinic s route for route for day by 14 days. 14 days. oral route for 14 days. fluconazole fluconazole No 1 Q1D fluconazol [place] 200 mg 200 mg e 200 mg Communi tablet Take tablet Take tablet ty 1 tablet 1 tablet Take 1 Hospi ta every day every day tablet l by oral by oral every day Clin ics route. route. by oral route. Lidocaine Lidocaine No 10mL Q5H Lidocaine [place] Viscous 2 % Viscous 2 % Viscous 2 Communi mucosal mucosal % mucosal ty solution solution solution Hos [place] Take 10 mL Take 10 mL Take 10 mL l every 4-6 every 4-6 every 4-6 Clinics hours by hours by hours by oral route. oral route. oral route. Immunizations Ordered Filled Immunization Date Status Comments [facility] e Immunization Name Name SARS-COV-2 COVID-19 2021-07-09 Completed Unive rsity of PFIZER VACCINE 00:00:00 [facility] SARS-COV-2 COVID-19 2021-07-09 Completed Unive rsity of PFIZER VACCINE 00:00:00 [facility] SARS-COV-2 COVID-19 2021-07-09 Completed Unive rsity of PFIZER VACCINE 00:00:00 [facility] SARS-COV-2 COVID-19 2021-07-09 Completed Unive rsity of PFIZER VACCINE 00:00:00 [facility] SARS-COV-2 COVID-19 2021-07-09 Completed Unive rsity of PFIZER VACCINE 00:00:00 [facility] Influenza Virus 2017-10-14 Completed Universit y of Vaccine (3+ yrs) 00:00:00 [facility] Influenza Virus 2017-10-14 Completed Universit y of Vaccine (3+ yrs) 00:00:00 [facility] Influenza Virus 2017-10-14 Completed Universit y of Vaccine (3+ yrs) 00:00:00 [facility] Influenza Virus 2017-10-14 Completed Universit y of Vaccine (3+ yrs) 00:00:00 [facility] Influenza Virus 2017-10-14 Completed Universit y of Vaccine (3+ yrs) 00:00:00 [facility] Influenza Three-TIV 2017-10-14 Completed ELLIS Shaver PF 5+ YR 00:00:00 [facility] Vital Signs Vital Name Observation Time Observation Value Comments Source Systolic blood 2021-08-23 06:35:00 147 mm[Hg] Univer sity of pressure [facility] Diastolic blood 2021-08-23 06:35:00 80 mm[Hg] Unive rsity of pressure [facility] Heart rate 2021-08-23 06:35:00 93 /min [facility] Respiratory rate 2021-08-23 06:35:00 18 /min Univ ers[facility] Oxygen saturation in 2021-08-23 06:35:00 100 /min University of Arterial blood by [place] [facility] car[facility] Pulse oximetry Branch Body temperature 2021-08-23 02:13:00 37.06 Faith [facility] Body height 2021-08-23 02:13:00 177.8 cm [facility] Body weight 2021-08-23 02:13:00 54.432 kg [facility] BMI 2021-08-23 02:13:00 17.22 kg/m2 [facility] Heart rate 2021-08-20 21:30:00 80 /min [facility] Oxygen saturation in 2021-08-20 21:30:00 100 /min University of Arterial blood by [place] [facility] Pulse oximetry Branch Systolic blood 2021-08-20 20:00:00 135 mm[Hg] Univer sity of pressure [facility] Diastolic blood 2021-08-20 20:00:00 81 mm[Hg] Unive rsity of pressure [facility] Respiratory rate 2021-08-20 19:15:00 21 /min [facility] Body temperature 2021-08-20 16:14:00 37.5 Faith [facility] Body height 2021-08-20 16:14:00 175.3 cm [facility] Body weight 2021-08-20 16:14:00 53.9 kg [facility] BMI 2021-08-20 16:14:00 17.55 kg/m2 [facility] Systolic blood 2021-08-20 19:00:00 140 mm[Hg] Univer sity of pressure [facility] Diastolic blood 2021-08-20 19:00:00 88 mm[Hg] Unive rsity of pressure [facility] Heart rate 2021-08-20 19:00:00 74 /min [facility] Respiratory rate 2021-08-20 19:00:00 19 /min [facility] Oxygen saturation in 2021-08-20 19:00:00 100 /min [facility] Arterial blood by [facility] Pulse oximetry Branch Body temperature 2021-08-20 16:14:00 37.5 Faith [facility] Body height 2021-08-20 16:14:00 175.3 cm [facility] Body weight 2021-08-20 16:14:00 53.9 kg [facility] BMI 2021-08-20 16:14:00 17.55 kg/m2 [facility] BP Diastolic 2021-03-13 00:00:00 101 mm[Hg] [facility] s BP Systolic 2021-03-13 00:00:00 208 mm[Hg] [facility] s Body Weight 2021-03-13 00:00:00 1772.8 [oz_av] [facility] s Procedures Procedure Date / Time Performed Performing Clinician Sour e URINALYSIS 2021-08-23 04:32:00 Rodolfo Metz [facility] [place] TIME OR 2021-08-20 18:22:52 [facility] (NON-REPORTABLE) [facility] [place] TIME OR 2021-08-20 18:22:52 [facility] (NON-REPORTABLE) [facility] SUPRAPUBIC CATHETER 2021-08-20 16:26:00 Merritt Alston [facility] PLACEMENT [facility] CYSTOSCOPY 2021-08-20 16:26:00 Gamaliel, [facility] DAY SURGERY - 2021-08-20 06:01:00 Doctor Unassigned[facility] Name Medical [place]/chest Surgery [facility] Plan of Care Planned Activity Planned Date Details Comments Source Diagnostic Test Pending 2021-03-13 rapid strep group [facility] 00:00:00 A, throat [code = [facility] rapid strep group A, throat] Instructions [facility] s Encounters Start End Encounter Admission Attending Care Care Encounter Source Date/Time Date/Time Type Type Clinicians Facility Department ID 2021-07-31 Outpatient R GAMALIEL [facility] [id number] Univers 12:56:25 BILAL itUT [facility] 2021-07-24 Outpatient GAMALIEL [facility] SU [id number] Univers 11:35:55 BILAL ity [facility] 2021-07-09 Emergency [facility] [id number] Univers 14:18:20 ity [facility] 2021-07-07 Emergency U [facility] SU [id number] Univers 22:21:37 ity [facility] 2022-01-28 2022-01-28 Outpatient R VELVETEVYMarcelino [facility] [id number] Univers 11:00:00 11:00:00 [facility] 2022-01-28 2022-01-28 [facility] [id number] Univers 11:00:00 11:00:00 [facility] 2021-12-18 2021-12-18 [facility] [id number] Univers 16:30:00 16:30:00 YE [facility] 2021-09-24 2021-09-24 Outpatient WATERS_S [facility] [id number] [place] 03:13:00 03:13:00 [facility] 2021-09-17 2021-09-17 Outpatient R LILLY [facility] [id number] Univers 00:00:00 00:00:00 SAGE [facility] 2021-08-22 2021-08-23 Emergency X GIORGIO THOMAS [facility] ERT [id number] Univers 20:11:00 01:38:00 GIORGIO THOMAS gina [facility] 2021-08-22 2021-08-23 Emergency Yury [facility] [id number] Univers 20:11:00 01:38:00 Giorgio HEALTH 350.1.13.10 it [place] [id number] [facility] 014 Branch (CLC) 2021-08-20 2021-08-20 Outpatient R GAMALIEL [facility] SU [id number] Univers 09:46:00 15:40:00 BILAL ity of [facility] 2021-08-20 2021-08-20 Hospital WOO Alston [id number] Univers 09:46:00 15:40:00 Encounter Bilal LADI 350.1.13.10 ity of HOSPITAL 4.2.7.2.686 Isaac as [id number] [facility] 104 Branch 2021-08-20 2021-08-20 Surgery WOO Alston 1.2.840.114 [id number] Univers 10:56:00 13:10:00 Bilal LADI 350.1.13.10 it y of HOSPITAL 4.2.7.2.686 Isaac as [phone] [facility] 103 Branch 2021-08-20 2021-08-20 Orders Doctor LISA 1.2.840.114 [id number] Univers 00:00:00 00:00:00 Only Unassigned, LADI 350.1.13.10 ity of [place] [facility] 4.2.7.2.686 Isaac as [id number] [facility] 009 Branch 2021-08-13 2021-08-13 Telephone Gamaliel [facility] 1.2.169.150 [id number] Univers 00:00:00 00:00:00 Bilal HEALTH 350.1.13.10 it y of [place].2.686 [place] [facility] - [phone] [facility] 204 Branch 2021-08-08 2021-08-08 Certified Pharmacy Technician Lab, [facility] 1.2.840.114 [id number] Univers 11:05:31 11:20:31 Visit Pathology HEALTH 350.1.13.10 it[place] [phone] [facility] 353 Branch (CLC) 2021-08-08 2021-08-08 Outpatient R [facility] [id number] Univers 11:15:00 11:15:00 ity of [facility] 2021-08-08 2021-08-08 Outpatient R PATHOLOGY [facility] [id number] Univers 11:15:00 11:15:00 ity of [facility] 2021-07-24 2021-07-24 Outpatient R GAMALIEL, [facility] [id number] Univers 11:00:00 11:34:01 BILAL ity [facility] 2021-07-24 2021-07-24 Office [facility] 1.2.840.114 [id number] Univers 10:43:02 11:34:01 Visit [facility] 350.1.13.10 it y of [place] 4.2.7.2.686 [facility] [id number] [facility] PRIMARY & 204 Branch SPECIALTY CARE 2021-07-23 2021-07-23 Telephone [facility] [id number] Univers 00:00:00 00:00:00 [facility] 350.1.13.10 it y of [place] 4.2.7.2.686 [facility] [phone] [facility] PRIMARY & 204 Branch SPECIALTY CARE 2021-05-12 2021-07-09 Hospital Frankie Woodson 1.2.840.1 [id number] Univers 13:06:00 18:30:00 Encounter Gustavo Dominguez 350.1.13 .10 ity [facility] 4.2.7.2.686 [place] Jamal Ferguson [phone] [facility] Lucero Sharma 091 Branch Shawn Rodriguez Susan Walker, John Patrick 2021-05-12 2021-07-09 Inpatient X DEBORAH [facility] NELSON [id number] Univers 13:06:00 18:30:00 LISA damian [facility] 2021-05-12 2021-07-09 Inpatient X DEBORAH [facility] [id number] Univers 13:06:00 18:30:00 LISA damian [facility] 2021-06-05 2021-06-05 Anesthesia Kamaljit Jeffers 1.2.840.1 [id number] Univers 11:56:00 18:40:00 Event Sienna Ambrosio 24056.1.1 ity of 3.104.2.7 [place] .3.912136 Medica l .8 Branch 2021-06-05 2021-06-05 Surgery Walker, 1.2.840.6 [id number] Univers 10:15:00 13:21:00 Lisa 66741.1.1 ity of [place] 3.104.2.7 [place] .3.702369 Medica l .8 Branch 2021-06-04 2021-06-04 Surgery Walker, 1.2.840.7 [id number] Univers 13:00:00 14:27:00 Lisa 97293.1.1 ity of [place] 3.104.2.7 [place] .3.584651 Medica l .8 Branch 2021-06-04 2021-06-04 Anesthesia Kemi Corado G 1.2.840.8 [id number] Univers 13:20:00 14:11:00 Event Samantha, Noel 31129.1.1 ity of 3.104.2.7 [place] .3.720540 Medica l .8 Branch 2021-06-04 2021-06-04 Travel 1.2.840.1 1.2.311.315 [id number] Univers 00:00:00 00:00:00 54198.1.1 350.1.13.10 ity of 3.104.2.7 [place].3.698 [place] .3.101873 084.8 Medica l .8 Branch 2021-05-16 2021-05-16 Case Theodore, 1.2.840.1 [id number] Univers 00:00:00 00:00:00 Management Emani Campbell 42206.1.1 i ty of 3.104.2.7 [place] .3.728306 Medica l .8 Branch 2021-05-15 2021-05-15 Surgery Parelieudi, 1.2.840.2 [id number] Univers 17:22:00 18:14:00 Hunter 38764.1.1 ity of 3.104.2.7 [place] .3.805002 Medica l .8 Branch 2021-05-15 2021-05-15 Anesthesia Raul Buenrostro 1.2.840 .2 [id number] Univers 14:42:00 15:13:00 Event Mariann Gilliland 43326.1.1 ity of 3.104.2.7 [place] .3.607895 Medica l .8 Branch 2021-05-15 2021-05-15 Travel 1.2.840.1 1.2.630.596 [id number] Univers 00:00:00 00:00:00 22076.1.1 350.1.13.10 ity of 3.104.2.7 4.[place].7.3.698 [place] .3.425910 084.8 Medica l .8 Branch 2021-05-13 2021-05-13 Travel 1.2.840.1 1.2.283.099 [id number] Univers 00:00:00 00:00:00 22961.1.1 350.1.13.10 ity of 3.104.2.7 4.[place].7.3.698 [place] .3.820899 084.8 Medica l .8 Branch 2021-05-12 2021-05-12 Travel 1.2.840.1 1.2.482.972 [id number] Univers 00:00:00 00:00:00 84110.1.1 350.1.13.10 ity of 3.104.2.7 4.[place].7.3.698 [place] .3.249555 084.8 Medica l .8 Branch 2021-04-17 2021-04-17 Emergency Woodson, 1.2.840.7 [id number] Univers 04:32:00 05:46:00 Frankie 91741.1.1 ity of 3.104.2.7 [place] .3.030717 Medica l .8 Branch 2021-04-17 2021-04-17 Travel 1.2.840.1 1.2.794.036 [id number] Univers 00:00:00 00:00:00 92556.1.1 350.1.13.10 ity of 3.104.2.7 4.2.7.3.698 [place] .3.372902 084.8 Medica l .8 [place] 2021-04-17 2021-04-17 Orders Doctor 1.2.840.1 [id number] Univers 00:00:00 00:00:00 Only Unassigned, 84510.1.1 ity of [place] 3.104.2.7 [place] .3.500184 Medica l .8 Branch 2021-03-13 2021-03-13 Outpatient [facility] [id number] [place] 04:21:00 04:21:00 706 Commun i [facility][note 2] 2021-03-13 2021-03-13 Outpatient [facility] [id number] 00:00:00 00:00:00 Delfina [id number] 2021-03-13 2021-03-13 [facility] [place] [id number] [place] 00:00:00 00:00:00 [facility] Comm uni DIRECTOR OF INSTITUTIONAL RESEARCH-WET SUIT GLUER-C: Hospital - ty [address] [place] [address] [address], [place] [address] , Ph. 2020-11-13 2020-11-13 Outpatient Elsa KEY [facility] [id number] Univers 13:45:00 13:45:00 DON damian [facility] 2020-10-25 2020-10-25 Outpatient Elsa KEY [facility] [id number] Univers 14:00:00 14:00:00 DON damian [facility] 2020-10-18 2020-10-18 Outpatient Elsa KEY [facility] [id number] Univers 15:00:00 15:00:00 [facility] Results Test Description Test Time Test Comments Results Result Comments Source AFB CULTURE + SMEAR 2017-11-27 13:52:00 Test Item Value Reference Range Interpretation Comme nts CULTURE (BEAKER) (test code = 1095) No acid-fast bacilli isolated i n 42 days AFB SMEAR (BEAKER) (test code = 994) No acid fast bacilli seen FUNGUS CULTURE + [id number] 08:25:00 Test Item Value Reference Range Interpretation Comments CULTURE (BEAKER) (test No fungus isolated in code = 1095) 28 days FUNGUS SMEAR (BEAKER) No fungi seen (test code = 1406) ANAEROBIC [id number] 17:50:00 Test Item Value Reference Range Interpretation Comments CULTURE (BEAKER) A 3+ Anaerobi c gram positive (test code = 1095) cocciMost closely resembles* - Peptostreptoc occus species SURGICALLY OBTAINED CULTURE + GRAM [id number] 12:12:00 Test Item Value Reference Interpretation Comments Range CULTURE (BEAKER) (test code = 1095) Ampicillin (test code S = 26) Linezolid (test code S = 40) Tetracycline (test R code = 2) Vancomycin (test code S = 13) CULTURE (BEAKER) A 4+ Enteroco ccus (test code = 1095) species CULTURE (BEAKER) COAGULASE NEGATIVE A 2+ Co agulase (test code = 1095) STAPHYLOCOCCUS negativ e Staphylococcus Clindamycin (test S code = 10) Erythromycin (test S code = 4) Levofloxacin (test R code = 22) Linezolid (test code S = 40) Nitrofurantoin (test S code = 23) Oxacillin (test code S = 14) Rifampin (test code = S 43) Tetracycline (test S code = 2) Trimethoprim + R Sulfamethoxazole (test code = 47) Vancomycin (test code S = 13) GRAM STAIN RESULT 4+ White blood (BEAKER) (test code = cells seen 1123) GRAM STAIN RESULT 4+ gram positive (BEAKER) (test code = cocci in clusters [id number]) GRAM STAIN RESULT 1+ gram positive (BEAKER) (test code = coccobacilli 184704) BASIC METABOLIC [id number] 07:11:00 Test Item Value Reference Range Interpretation Comments SODIUM (BEAKER) 134 meq/L 136-145 L (test code = 381) POTASSIUM (BEAKER) 3.6 meq/L 3.5-5.1 (test code = 379) CHLORIDE (BEAKER) 102 meq/L 98-107 (test code = 382) CO2 (BEAKER) (test 25 meq/L 22-29 code = 355) BLOOD UREA NITROGEN 8 mg/dL 7-21 (BEAKER) (test code = 354) CREATININE (BEAKER) 0.77 mg/dL 0.57-1.25 (test code = 358) GLUCOSE RANDOM 87 mg/dL 70-105 (BEAKER) (test code = 652) CALCIUM (BEAKER) 8.2 mg/dL 8.4-10.2 L (test code = 697) EGFR (BEAKER) (test 105 mL/min/1.73 ESTIM ATED GFR IS code = 1092) sq m NOT ACCURATE CREATININE CLEARANCE IN PREDICTING GLOMERULAR FILTRATION RATE . ESTIMATED GFR I S NOT APPLICABLE FOR DIALYSIS PATIEN TS. CBC W/PLT COUNT & AUTO [id number] 06:09:00 Test Item Value Reference Range Interpretation Comments WHITE BLOOD CELL COUNT (BEAKER) 4.9 K/ L 3.5-10.5 (test code = 775) RED BLOOD CELL COUNT (BEAKER) 2.93 M/ L 4.63-6.08 L (test code = 761) HEMOGLOBIN (BEAKER) (test code = 8.4 GM/DL 13.7-17.5 L 410) HEMATOCRIT (BEAKER) (test code = 26.2 % 40.1-51.0 L 411) MEAN CORPUSCULAR VOLUME (BEAKER) 89.4 fL 79.0-92.2 (test code = 753) MEAN CORPUSCULAR HEMOGLOBIN 28.7 pg 25.7-32.2 (BEAKER) (test code = 751) MEAN CORPUSCULAR HEMOGLOBIN CONC 32.1 GM/DL 32.3-36.5 L (BEAKER) (test code = 752) RED CELL DISTRIBUTION WIDTH 17.4 % 11.6-14.4 H (BEAKER) (test code = 412) PLATELET COUNT (BEAKER) (test 244 K/CU MM 150-450 code = 756) MEAN PLATELET VOLUME (BEAKER) 9.7 fL 9.4-12.4 (test code = 754) NUCLEATED RED BLOOD CELLS 0 /100 WBC 0-0 (BEAKER) (test code = 413) NEUTROPHILS RELATIVE PERCENT 71 % (BEAKER) (test code = 429) LYMPHOCYTES RELATIVE PERCENT 19 % (BEAKER) (test code = 430) MONOCYTES RELATIVE PERCENT 7 % (BEAKER) (test code = 431) EOSINOPHILS RELATIVE PERCENT 1 % (BEAKER) (test code = 432) BASOPHILS RELATIVE PERCENT 0 % (BEAKER) (test code = 437) NEUTROPHILS ABSOLUTE COUNT 3.51 K/ L 1.78-5.38 (BEAKER) (test code = 670) LYMPHOCYTES ABSOLUTE COUNT 0.93 K/ L 1.32-3.57 L (BEAKER) (test code = 414) MONOCYTES ABSOLUTE COUNT (BEAKER) 0.33 K/ L 0.30-0.82 (test code = 415) EOSINOPHILS ABSOLUTE COUNT 0.05 K/ L 0.04-0.54 (BEAKER) (test code = 416) BASOPHILS ABSOLUTE COUNT (BEAKER) 0.01 K/ L 0.01-0.08 (test code = 417) IMMATURE GRANULOCYTES-RELATIVE 2 % 0-1 H PERCENT (BEAKER) (test code = 2801) SPIN/CONCENTRATION [id number] 01:32:00 Test Item Value Reference Range Interpretation Comments CONCENTRATION CHARGED (BEAKER) (test Done code = 2657) OCCULT BLOOD, [id number] 15:47:00 Test Item Value Reference Range Interpretation Comments FECAL OCCULT BLOOD (BEAKER) (test Negative Negative code = 618) VANCOMYCIN LEVEL, [id number] 13:39:00 Test Item Value Reference Range Interpretation Comments VANCOMYCIN TROUGH (BEAKER) (test 30.1 ug/mL 10.0-20.0 HH code = 522) Please draw 30 min prior to 4th doseBASIC METABOLIC [id number] 06:16:00 Test Item Value Reference Range Interpretation Comments SODIUM (BEAKER) 138 meq/L 136-145 (test code = 381) POTASSIUM (BEAKER) 3.6 meq/L 3.5-5.1 (test code = 379) CHLORIDE (BEAKER) 109 meq/L 98-107 H (test code = 382) CO2 (BEAKER) (test 21 meq/L 22-29 L code = 355) BLOOD UREA NITROGEN 9 mg/dL 7-21 (BEAKER) (test code = 354) CREATININE (BEAKER) 0.73 mg/dL 0.57-1.25 (test code = 358) GLUCOSE RANDOM 92 mg/dL 70-105 (BEAKER) (test code = 652) CALCIUM (BEAKER) 7.9 mg/dL 8.4-10.2 L (test code = 697) EGFR (BEAKER) (test 112 mL/min/1.73 ESTIM ATED GFR IS code = 1092) sq m NOT ACCURATE CREATININE CLEARANCE IN PREDICTING GLOMERULAR FILTRATION RATE . ESTIMATED GFR I S NOT APPLICABLE FOR DIALYSIS PATIEN TS. CBC W/PLT COUNT & AUTO [id number] 05:13:00 Test Item Value Reference Range Interpretation Comments WHITE BLOOD CELL COUNT (BEAKER) 6.9 K/ L 3.5-10.5 (test code = 775) RED BLOOD CELL COUNT (BEAKER) 2.64 M/ L 4.63-6.08 L (test code = 761) HEMOGLOBIN (BEAKER) (test code = 7.6 GM/DL 13.7-17.5 L 410) HEMATOCRIT (BEAKER) (test code = 24.1 % 40.1-51.0 L 411) MEAN CORPUSCULAR VOLUME (BEAKER) 91.3 fL 79.0-92.2 (test code = 753) MEAN CORPUSCULAR HEMOGLOBIN 28.8 pg 25.7-32.2 (BEAKER) (test code = 751) MEAN CORPUSCULAR HEMOGLOBIN CONC 31.5 GM/DL 32.3-36.5 L (BEAKER) (test code = 752) RED CELL DISTRIBUTION WIDTH 17.8 % 11.6-14.4 H (BEAKER) (test code = 412) PLATELET COUNT (BEAKER) (test 222 K/CU MM 150-450 code = 756) MEAN PLATELET VOLUME (BEAKER) 10.1 fL 9.4-12.4 (test code = 754) NUCLEATED RED BLOOD CELLS 0 /100 WBC 0-0 (BEAKER) (test code = 413) NEUTROPHILS RELATIVE PERCENT 76 % (BEAKER) (test code = 429) LYMPHOCYTES RELATIVE PERCENT 15 % (BEAKER) (test code = 430) MONOCYTES RELATIVE PERCENT 6 % (BEAKER) (test code = 431) EOSINOPHILS RELATIVE PERCENT 0 % (BEAKER) (test code = 432) BASOPHILS RELATIVE PERCENT 0 % (BEAKER) (test code = 437) NEUTROPHILS ABSOLUTE COUNT 5.24 K/ L 1.78-5.38 (BEAKER) (test code = 670) LYMPHOCYTES ABSOLUTE COUNT 1.06 K/ L 1.32-3.57 L (BEAKER) (test code = 414) MONOCYTES ABSOLUTE COUNT (BEAKER) 0.40 K/ L 0.30-0.82 (test code = 415) EOSINOPHILS ABSOLUTE COUNT 0.02 K/ L 0.04-0.54 L (BEAKER) (test code = 416) BASOPHILS ABSOLUTE COUNT (BEAKER) 0.01 K/ L 0.01-0.08 (test code = 417) IMMATURE GRANULOCYTES-RELATIVE 2 % 0-1 H PERCENT (BEAKER) (test code = 2801) BASIC METABOLIC [id number] 06:43:00 Test Item Value Reference Range Interpretation Comments SODIUM (BEAKER) 135 meq/L 136-145 L (test code = 381) POTASSIUM (BEAKER) 4.5 meq/L 3.5-5.1 (test code = 379) CHLORIDE (BEAKER) 109 meq/L 98-107 H (test code = 382) CO2 (BEAKER) (test 19 meq/L 22-29 L code = 355) BLOOD UREA NITROGEN 13 mg/dL 7-21 (BEAKER) (test code = 354) CREATININE (BEAKER) 0.79 mg/dL 0.57-1.25 (test code = 358) GLUCOSE RANDOM 136 mg/dL 70-105 H (BEAKER) (test code = 652) CALCIUM (BEAKER) 7.8 mg/dL 8.4-10.2 L (test code = 697) EGFR (BEAKER) (test 102 mL/min/1.73 ESTIM ATED GFR IS code = 1092) sq m NOT ACCURATE CREATININE CLEARANCE IN PREDICTING GLOMERULAR FILTRATION RATE . ESTIMATED GFR I S NOT APPLICABLE FOR DIALYSIS PATIEN TS. CBC W/PLT COUNT & AUTO [id number] 06:27:00 Test Item Value Reference Range Interpretation Comments WHITE BLOOD CELL COUNT (BEAKER) 13.7 K/ L 3.5-10.5 H (test code = 775) RED BLOOD CELL COUNT (BEAKER) 2.69 M/ L 4.63-6.08 L (test code = 761) HEMOGLOBIN (BEAKER) (test code = 8.0 GM/DL 13.7-17.5 L 410) HEMATOCRIT (BEAKER) (test code = 25.2 % 40.1-51.0 L 411) MEAN CORPUSCULAR VOLUME (BEAKER) 93.7 fL 79.0-92.2 H (test code = 753) MEAN CORPUSCULAR HEMOGLOBIN 29.7 pg 25.7-32.2 (BEAKER) (test code = 751) MEAN CORPUSCULAR HEMOGLOBIN CONC 31.7 GM/DL 32.3-36.5 L (BEAKER) (test code = 752) RED CELL DISTRIBUTION WIDTH 18.1 % 11.6-14.4 H (BEAKER) (test code = 412) PLATELET COUNT (BEAKER) (test 196 K/CU MM 150-450 code = 756) MEAN PLATELET VOLUME (BEAKER) 10.6 fL 9.4-12.4 (test code = 754) NUCLEATED RED BLOOD CELLS 0 /100 WBC 0-0 (BEAKER) (test code = 413) NEUTROPHILS RELATIVE PERCENT 90 % (BEAKER) (test code = 429) LYMPHOCYTES RELATIVE PERCENT 7 % (BEAKER) (test code = 430) MONOCYTES RELATIVE PERCENT 2 % (BEAKER) (test code = 431) EOSINOPHILS RELATIVE PERCENT 0 % (BEAKER) (test code = 432) BASOPHILS RELATIVE PERCENT 0 % (BEAKER) (test code = 437) NEUTROPHILS ABSOLUTE COUNT 12.32 K/ L 1.78-5.38 H (BEAKER) (test code = 670) LYMPHOCYTES ABSOLUTE COUNT 0.92 K/ L 1.32-3.57 L (BEAKER) (test code = 414) MONOCYTES ABSOLUTE COUNT (BEAKER) 0.31 K/ L 0.30-0.82 (test code = 415) EOSINOPHILS ABSOLUTE COUNT 0.00 K/ L 0.04-0.54 L (BEAKER) (test code = 416) BASOPHILS ABSOLUTE COUNT (BEAKER) 0.01 K/ L 0.01-0.08 (test code = 417) IMMATURE GRANULOCYTES-RELATIVE 1 % 0-1 PERCENT (BEAKER) (test code = 280) RETICULOCYTE [id number] 05:39:00 Test Item Value Reference Range Interpretation Comments RETICULOCYTE COUNT PCT (BEAKER) (test 1.8 % 0.5-1.8 code = 575) [id number] 18:34:00 Test Item Value Reference Range Interpretation Comments FERRITIN (BEAKER) (test code = 361) 315 ng/mL 5-275 H VITAMIN B12 AND [id number] 18:34:00 Test Item Value Reference Range Interpretation Comments VITAMIN B12 (BEAKER) (test code = 909 pg/mL 213-816 H 774) FOLATE (BEAKER) (test code = 362) 6.8 ng/mL >=7.0 L COMPREHENSIVE METABOLIC [id number] 18:07:00 Test Item Value Reference Range Interpretation Comments TOTAL PROTEIN 6.7 gm/dL 6.0-8.3 (BEAKER) (test code = 770) ALBUMIN (BEAKER) 2.9 g/dL 3.5-5.0 L (test code = 1145) ALKALINE PHOSPHATASE 109 U/L 40-150 (BEAKER) (test code = 346) BILIRUBIN TOTAL 1.3 mg/dL 0.2-1.2 H (BEAKER) (test code = 377) SODIUM (BEAKER) (test 140 meq/L 136-145 code = 381) POTASSIUM (BEAKER) 4.0 meq/L 3.5-5.1 (test code = 379) CHLORIDE (BEAKER) 111 meq/L 98-107 H (test code = 382) CO2 (BEAKER) (test 21 meq/L 22-29 L code = 355) BLOOD UREA NITROGEN 10 mg/dL 7-21 (BEAKER) (test code = 354) CREATININE (BEAKER) 0.79 mg/dL 0.57-1.25 (test code = 358) GLUCOSE RANDOM 88 mg/dL 70-105 (BEAKER) (test code = 652) CALCIUM (BEAKER) 7.8 mg/dL 8.4-10.2 L (test code = 697) AST (SGOT) (BEAKER) 38 U/L 5-34 H (test code = 353) ALT (SGPT) (BEAKER) 19 U/L 6-55 (test code = 347) EGFR (BEAKER) (test 102 ESTIMATE D GFR IS code = 1092) mL/min/1.73 sq NOT ACCURA TE m CREATININE CLEARANCE IN PREDICTING GLOMERULAR FILTRATION RATE . ESTIMATED GFR I S NOT APPLICABLE FOR DIALYSIS PATIEN TS. LACTATE DEHYDROGENASE (LDH)2017-10-11 18:04:00 Test Item Value Reference Range Interpretation Comments LACTATE DEHYDROGENASE (BEAKER) (test 197 U/L 125-220 code = 635) IRON, TIBC, % SAT. (WITHOUT FERRITIN)2017-10-11 18:04:00 Test Item Value Reference Range Interpretation Comments IRON (BEAKER) (test code = 547) 7 ug/dL 40-160 L TOTAL IRON BINDING CAPACITY 144 ug/dL 250-450 L (BEAKER) (test code = 769) IRON % SATURATION (2) (BEAKER) 5 % 20-55 L (test code = 2590) [id number] 17:40:00 Test Item Value Reference Range Interpretation Comments D-DIMER QUANTITATIVE (BEAKER) 2.28 MG/L FEU <0.50 H (test code = 671) Intended Use: The D-Dimer Assay can be used to aid in the diagnosis of Deep Vein Thrombosis (DVT) and Pulmonary Embolism Disease (PED).In patients with low pre- test probability, various studies concerning STA Liatest D-dimer test have reported that with a cutoff value of 0.50 MG/L FEU, the Negative Predictive Value (NPV) regarding the exclusion of thrombosis is within 95-100% range.CBC (HEMOGRAM ONLY)2017-10-11 17:39:00 Test Item Value Reference Range Interpretation Comments WHITE BLOOD CELL COUNT (BEAKER) 14.9 K/ L 3.5-10.5 H (test code = 775) RED BLOOD CELL COUNT (BEAKER) 2.57 M/ L 4.63-6.08 L (test code = 761) HEMOGLOBIN (BEAKER) (test code = 7.5 GM/DL 13.7-17.5 L 410) HEMATOCRIT (BEAKER) (test code = 24.1 % 40.1-51.0 L 411) MEAN CORPUSCULAR VOLUME (BEAKER) 93.8 fL 79.0-92.2 H (test code = 753) MEAN CORPUSCULAR HEMOGLOBIN 29.2 pg 25.7-32.2 (BEAKER) (test code = 751) MEAN CORPUSCULAR HEMOGLOBIN CONC 31.1 GM/DL 32.3-36.5 L (BEAKER) (test code = 752) RED CELL DISTRIBUTION WIDTH 17.4 % 11.6-14.4 H (BEAKER) (test code = 412) PLATELET COUNT (BEAKER) (test 183 K/CU MM 150-450 code = 756) MEAN PLATELET VOLUME (BEAKER) 10.2 fL 9.4-12.4 (test code = 754) NUCLEATED RED BLOOD CELLS 0 /100 WBC 0-0 (BEAKER) (test code = 413) [id number] 17:39:00 Test Item Value Reference Range Interpretation Comments FIBRINOGEN LEVEL (BEAKER) (test 474 mg/dl 225-434 H code = 658) [id number] 17:39:00 Test Item Value Reference Range Interpretation Comments PROTIME (BEAKER) (test code = 17.3 seconds 11.7-14.7 H 759) INR (BEAKER) (test code = 370) 1.4 <=5.9 PARTIAL THROMBOPLASTIN TIME 40.2 seconds 22.5-36.0 H (BEAKER) (test code = 760) RECOMMENDED COUMADIN/WARFARIN INR THERAPY RANGESSTANDARD DOSE: 2.0 - 3.0 Includes: PROPHYLAXIS for venous thrombosis, systemic embolization; TREATMENT for venous thrombosis and/or pulmonary embolus.HIGH RISK: Target INR is 2.5-3.5 for patients with mechanical heart valves.RETICULOCYTE [id number] 17:37:00 Test Item Value Reference Range Interpretation Comments RETICULOCYTE COUNT PCT (BEAKER) (test 2.2 % 0.5-1.8 H code = 575) CBC W/PLT COUNT & AUTO [id number] 17:26:00 Test Item Value Reference Range Interpretation Comments WHITE BLOOD CELL COUNT (BEAKER) 14.3 K/ L 3.5-10.5 H (test code = 775) RED BLOOD CELL COUNT (BEAKER) 2.01 M/ L 4.63-6.08 L (test code = 761) HEMOGLOBIN (BEAKER) (test code = 5.8 GM/DL 13.7-17.5 LL 410) HEMATOCRIT (BEAKER) (test code = 18.8 % 40.1-51.0 L 411) MEAN CORPUSCULAR VOLUME (BEAKER) 93.5 fL 79.0-92.2 H (test code = 753) MEAN CORPUSCULAR HEMOGLOBIN 28.9 pg 25.7-32.2 (BEAKER) (test code = 751) MEAN CORPUSCULAR HEMOGLOBIN CONC 30.9 GM/DL 32.3-36.5 L (BEAKER) (test code = 752) RED CELL DISTRIBUTION WIDTH 19.0 % 11.6-14.4 H (BEAKER) (test code = 412) PLATELET COUNT (BEAKER) (test 187 K/CU MM 150-450 code = 756) MEAN PLATELET VOLUME (BEAKER) 10.4 fL 9.4-12.4 (test code = 754) NUCLEATED RED BLOOD CELLS 0 /100 WBC 0-0 (BEAKER) (test code = 413) NEUTROPHILS RELATIVE PERCENT 87 % (BEAKER) (test code = 429) LYMPHOCYTES RELATIVE PERCENT 7 % (BEAKER) (test code = 430) MONOCYTES RELATIVE PERCENT 5 % (BEAKER) (test code = 431) EOSINOPHILS RELATIVE PERCENT 0 % (BEAKER) (test code = 432) BASOPHILS RELATIVE PERCENT 0 % (BEAKER) (test code = 437) NEUTROPHILS ABSOLUTE COUNT 12.46 K/ L 1.78-5.38 H (BEAKER) (test code = 670) LYMPHOCYTES ABSOLUTE COUNT 1.05 K/ L 1.32-3.57 L (BEAKER) (test code = 414) MONOCYTES ABSOLUTE COUNT (BEAKER) 0.71 K/ L 0.30-0.82 (test code = 415) EOSINOPHILS ABSOLUTE COUNT 0.01 K/ L 0.04-0.54 L (BEAKER) (test code = 416) BASOPHILS ABSOLUTE COUNT (BEAKER) 0.01 K/ L 0.01-0.08 (test code = 417) IMMATURE GRANULOCYTES-RELATIVE 1 % 0-1 PERCENT (BEAKER) (test code = 2801) [id number] 16:21:00 Test Item Value Reference Range Interpretation Comments PARTIAL THROMBOPLASTIN TIME 38.0 seconds 22.5-36.0 H (BEAKER) (test code = 760) PROTHROMBIN [id number] 16:20:00 Test Item Value Reference Range Interpretation Comments PROTIME (BEAKER) (test code = 17.2 seconds 11.7-14.7 H 759) INR (BEAKER) (test code = 370) 1.4 <=5.9 RECOMMENDED COUMADIN/WARFARIN INR THERAPY RANGESSTANDARD DOSE: 2.0 - 3.0 Includes: PROPHYLAXIS for venous thrombosis, systemic embolization; TREATMENT for venous thrombosis and/or pulmonary embolus.HIGH RISK: Target INR is 2.5-3.5 for patients with mechanical heart valves.[id number] 16:20:00 Test Item Value Reference Range Interpretation Comments FIBRINOGEN LEVEL (BEAKER) (test 441 mg/dl 225-434 H code = 658) HGB/HCT (H&H) - STAT [id number] 15:33:00 Test Item Value Reference Range Interpretation Comments HEMOGLOBIN (BEAKER) (test code = 4.2 g/dL 13.0-16.8 LL 410) HEMATOCRIT (BEAKER) (test code = 12.0 % 40.0-50.0 L 411) BLOOD GAS, [id number] 15:33:00 Test Item Value Reference Range Interpretation Comments PH ARTERIAL (BEAKER) (test code = 7.36 7.35-7.45 383) PCO2 ARTERIAL (BEAKER) (test code 41 mmHg 35-45 = 384) PO2 ARTERIAL (BEAKER) (test code 119 mmHg 80-90 H = 385) O2 SATURATION ARTERIAL (BEAKER) 98.2 % 96.0-97.0 H (test code = 386) HCO3 ARTERIAL (BEAKER) (test code 23 mmol/L 21-29 = 388) BASE EXCESS ARTERIAL (BEAKER) -2.2 mmol/L -2.0-3.0 L (test code = 387) PATIENT TEMPERATURE (BEAKER) 36.8 C (test code = 1818) FIO2 (BEAKER) (test code = 1819) 100.0 % GLUCOSE-STAT [id number] 15:32:00 Test Item Value Reference Range Interpretation Comments GLUCOSE RANDOM (BEAKER) (test code = 82 mg/dL 70-110 652) SODIUM NA-STAT [id number] 15:32:00 Test Item Value Reference Range Interpretation Comments SODIUM (BEAKER) (test code = 381) 136 meq/L 135-148 POTASSIUM-STAT [id number] 15:32:00 Test Item Value Reference Range Interpretation Comments POTASSIUM (BEAKER) (test code = 3.6 meq/L 3.6-5.5 379)
[2022-10-07] MEDS ORDERED: NA CHLORIDE 0.9% 1,000 ML ONE (12:04)
[2022-10-07] MEDS ORDERED: ONDANSETRON 4 MG/2 ML VIAL ONE (12:04)
[2022-10-07] MEDS ORDERED: MORPHINE 2 MG/ML SYR ONE (12:04)
[2022-10-07 12:25] LABS: Lymphocytes % 17.6 % (15.3-44.8); MPV 6.5 fL (7.6-11.3); RBC Red Blood Cell Count 2.05 M/uL (4.33-5.43)
[2022-10-07 12:34] LABS: Hematocrit 19.5 % (39.6-49.0)
--- NOTE | 2022-10-07 12:50 | RAD REPORT ---
EXAM DESCRIPTION: CT - Abdomen Pelvis Wo Contrast - 10/07/2022 11:59 am CLINICAL HISTORY: Abdominal pain COMPARISON: 2019 TECHNIQUE: Computed axial tomography of the abdomen and pelvis was obtained. IV and oral contrast we re not requested. All CT scans are performed using dose optimization technique as appropriate and may include automated exposure control or mA/KV adjustment according to patient size. FINDINGS: The evaluation of solid organs, vessels and bowel is limited secondary to the lack of con trast administration. Multiple gallstones. Gallbladder wall not thickened. The spleen 15 centimeters. Liver, pancreas and adrenals grossly normal. Left renal cysts. Left renal calculi. No hydronephrosis. Mild right hydronephrosis right kidney. Right ureter dilated. 4 millimeter calculus distal right uret er. Bladder calculi Suprapubic catheter in place. Thickened bladder wall. No air within the bladder. Postsurgical changes involve the bowel. No obstruction. No evidence of diverticulitis. Ill-defined fluid collection 6 x 2 centimeters right posterior pararenal space. It contains an air bu bble IMPRESSION: 4 millimeter calculus distal right ureter resulting in mild right hydronephrosis. Ill-defined fluid collection 6 x 2 centimeters right posterior pararenal space. This may represent an old hematoma, urinoma or abscess. Cholelithiasis without evidence cholecystitis Mild to moderate splenomegaly No evidence of a colovesicular fistula. However, contrast was not given. If clinically indicated a CT scan of the pelvis with rectal contrast may be helpful for further evaluation
--- NOTE | 2022-10-07 12:58 | EDPHYS ---
Physician Documentation [facility] Name: Manjit Ba Age: 62 yrs Sex: Male : 1960 Arrival Date: 10/07/2022 Time: 11:27 Bed 2 Private MD: ED Physician Damon Granado HPI: 10/07 12:35 This 62 yrs old Male presents to ER via EMS with complaints of Problem With Urinary rn Catheter. 12:35 The patient presents with a Conteh catheter problem, is not draining. Onset: The rn symptoms/episode began/occurred 2 week(s) ago. Modifying factors: The symptoms are alleviated by nothing, the symptoms are aggravated by nothing. Severity of symptoms: At their worst the symptoms were moderate, in the emergency department the symptoms are unchanged. The patient has not experienced similar symptoms in the past. The patient has not recently seen a physician. Pt reports here for 2 reasons, suprapubic catheter not draining in last 2 weeks, thinks has recurrence of "fistulas". Also reports pain over right hip, no trauma or fall, also for 2 weeks. . Historical: - Allergies: 11:29 No Known Allergies; bp - PMHx: 11:29 Chronic Kidney Infection; HIV; Stage IV bladdre CA; bp - Immunization history:: Adult Immunizations up to date. - Social history:: Smoking status: unknown. - Family history:: not pertinent. - Hospitalizations: : No recent hospitalization is reported. ROS: 12:35 Constitutional: Negative for fever, chills Eyes: Negative for injury, pain, redness, rn and discharge, Cardiovascular: Negative for chest pain, palpitations, and edema, Respiratory: Negative for shortness of breath, cough, wheezing, and pleuritic chest pain, Abdomen/GI: + lower abd and right hip pain : Suprapubic catheter not draining MS/Extremity: Negative for injury and deformity, Skin: + generalized weakness Exam: 12:33 Constitutional: Thin male, cachectic Head/Face: Normocephalic, atraumatic. sports attorney: Regular rate and rhythm. No pulse deficits. Respiratory: No increased work of breathing, no retractions or nasal flaring. Abdomen/GI: soft, non-tender, + suprapubic catheter in place, appears to have dark substance in lumen of catheter, possibly stool Skin: Warm, dry, + soft fluctuance overlying right ASIS with blanching erythema and tenderness, approx 4 cm and ovid diameter at its largest. Neuro: Awake and alert, GCS 15 Vital Signs: 11:28 BP 156 / 86; Pulse 80; Resp 17; Temp 98.0; Pulse Ox 99% ; bp 12:00 BP 162 / 83; Pulse 78; Resp 16; Pulse Ox 100% ; bp 13:00 BP 176 / 81; Pulse 79; Resp 16; Pulse Ox 100% ; bp 14:00 BP 141 / 73; Pulse 72; Resp 16; Pulse Ox 99% ; bp 15:00 BP 157 / 69; Pulse 69; Resp 15; Pulse Ox 99% ; bp 16:18 BP 162 / 77; Pulse 70; Resp 15; Pulse Ox 99% ; kr3 MDM: 11:28 Patient medically screened. rn 12:55 Differential diagnosis: nonspecific abdominal pain, UTI, urinary retention, Conteh rn catheter problem. Data reviewed: vital signs, nurses notes, and as a result, I will admit patient. Consideration of Admission/Observation Escalation of care including admission/observation considered. Counseling: I had a detailed discussion with the patient and/or guardian regarding: the historical points, exam findings, and any diagnostic results supporting the discharge/admit diagnosis, lab results, radiology results, the need for further work-up and treatment in the hospital, the need to transfer to another facility, for higher level of care, [facility] does not immediately have the required specialist. ED course: Pt with right sided stone, fluid collection posterior to right kidney could be urinoma or abscess, has GI bleed with possible colo-vesicular fistula, no urology here, will have to transfer to [facility] for further evaluation. . 10/07 11:37 Order name: CBC with Diff; Complete Time: 12:53 rn 10/07 11:37 Order name: CMP; Complete Time: 13:24 rn 10/07 11:37 Order name: Lipase; Complete Time: 13:24 rn 10/07 13:24 Order name: Type And Screen rn 10/07 12:00 Order name: Abdomen ; Complete Time: 12:53 EDMS 10/07 13:25 Order name: SARS-COV-2 Antigen Rapid bd 10/07 13:52 Order name: Bb Add On bd 10/07 14:13 Order name: Packed RBC Leukored EDMS 10/07 11:37 Order name: IV Saline Lock; Complete Time: 12:14 rn 10/07 11:37 Order name: Labs collected and sent; Complete Time: 12:14 rn Administered Medications: 12:00 Drug: NS 0.9% 1000 ml Route: IV; Rate: 1 bolus; Site: right forearm; bp 18:19 Follow up: IV Status: Completed infusion; IV Intake: 1000ml bp 12:00 Drug: morphine 2 mg Route: IVP; Infused Over: 4 mins; Site: right forearm; bp 18:17 Follow up: Response: Pain is decreased bp 12:00 Drug: Zofran (Ondansetron) 4 mg Route: IVP; Site: right forearm; bp 18:17 Follow up: Response: No adverse reaction bp 14:15 Drug: ProTONIX (pantoprazole) 8 mg/hr Route: IV; Rate: 25 ml/hr; Site: right forearm; bp 18:17 Follow up: IV Status: Infusion continued upon transfer bp 14:30 Drug: ProTONIX (pantoprazole) 40 mg Route: IVP; Site: right forearm; bp 18:18 Follow up: Response: No adverse reaction bp 14:30 Drug: Rocephin (cefTRIAXone) 1 grams Route: IV; Rate: calculated rate; Site: right bp forearm; 18:17 Follow up: IV Status: Completed infusion; IV Intake: 100ml bp Disposition Summary: 10/07/22 12:57 Transfer Ordered Transfer Location: [facility] rn Reason: Higher level of care rn Condition: Stable rn Problem: new rn Symptoms: are unchanged rn Accepting Physician: (10/07/22 18:55) bp Diagnosis - Mechanical complication of urinary (indwelling) catheter rn - Hydronephrosis with renal and ureteral calculous obstruction rn - GI Bleed/ Gastrointestinal hemorrhage, unspecified rn - Chronic kidney disease, unspecified rn Forms: - Medication Reconciliation Form rn - SBAR form rn Signatures: Dispatcher [employer] EDDamon Jack MD MD rn Peltier, Brian, RN RN bp Corrections: (The following items were deleted from the chart) 12:00 11:38 Abdomen Pelvis W Con+CT.RAD.BRZ ordered. [facility] EDSC 18:55 12:57 Dr. sanders bp
--- NOTE | 2022-10-07 12:58 | ER ---
Nurse's Notes [facility] Name: Manjit Ba Age: 62 yrs Sex: Male : 1960 Arrival Date: 10/07/2022 Time: 11:27 Bed 2 Private MD: Diagnosis: Mechanical complication of urinary (indwelling) catheter;Hydronephrosis with renal and ureteral calculous obstruction;GI Bleed/ Gastrointestinal hemorrhage, unspecified;Chronic kidney disease, unspecified Presentation: 10/07 11:28 Chief complaint: EMS states: PAIN AT SUPRAPUBIC CATH. Coronavirus screen: At this time, bp the client does not indicate any symptoms associated with coronavirus-19. Ebola Screen: No symptoms or risks identified at this time. Initial Sepsis Screen: Does the patient meet any 2 criteria? No. Patient's initial sepsis screen is negative. Does the patient have a suspected source of infection? No. Patient's initial sepsis screen is negative. Risk Assessment: Do you want to hurt yourself or someone else? Patient reports no desire to harm self or others. Onset of symptoms is unknown. 11:28 Method Of Arrival: EMS: [facility] bp 11:28 Acuity: KRISS 3 bp Triage Assessment: 11:29 General: Appears unkempt, emaciated, Behavior is cooperative, appropriate for age, bp anxious. Pain: Complains of pain in abdomen. EENT: No deficits noted. Neuro: No deficits noted. Cardiovascular: No deficits noted. Respiratory: No deficits noted. GI: Reports lower abdominal pain. : suprapubic catheter in place. Derm: No deficits noted. Musculoskeletal: No deficits noted. Historical: - Allergies: 11:29 No Known Allergies; bp - PMHx: 11:29 Chronic Kidney Infection; HIV; Stage IV bladdre CA; bp - Immunization history:: Adult Immunizations up to date. - Social history:: Smoking status: unknown. - Family history:: not pertinent. - Hospitalizations: : No recent hospitalization is reported. Screenin:32 [facility] ED Fall Risk Assessment (Adult) History of falling in the last 3 months, bp including since admission No falls in past 3 months (0 pts). Abuse screen: Denies threats or abuse. Denies injuries from another. Nutritional screening: No deficits noted. Tuberculosis screening: No symptoms or risk factors identified. Assessment: 11:32 General: SEE TRIAGE NTOE. bp 13:00 Reassessment: TRANSFER INITIATED. bp 15:00 Reassessment: UNABLE TO PASS STRAIGHT CATH. NOTIFIED. bp 17:39 General: REPORT TO PETER MARTINEZ FOR RM [facility]. TRANSPORT PENDING. bp 18:16 Reassessment: EMS AT B/S FOR TRANSPORT. bp Vital Signs: 11:28 BP 156 / 86; Pulse 80; Resp 17; Temp 98.0; Pulse Ox 99% ; bp 12:00 BP 162 / 83; Pulse 78; Resp 16; Pulse Ox 100% ; bp 13:00 BP 176 / 81; Pulse 79; Resp 16; Pulse Ox 100% ; bp 14:00 BP 141 / 73; Pulse 72; Resp 16; Pulse Ox 99% ; bp 15:00 BP 157 / 69; Pulse 69; Resp 15; Pulse Ox 99% ; bp 16:18 BP 162 / 77; Pulse 70; Resp 15; Pulse Ox 99% ; kr3 ED Course: 11:27 Patient arrived in ED. bp 11:28 Damon Granado MD is Attending Physician. rn 11:29 Triage completed. bp 11:29 Arm band placed on. bp 11:32 Patient has correct armband on for positive identification. Bed in low position. Call bp light in reach. Side rails up X2. 11:39 Dileep Douglas, JUAN is Primary Nurse. bp 11:54 Inserted saline lock: 22 gauge in right forearm, using aseptic technique. rs5 12:00 Abdomen In Process Unspecified. EDMS 12:33 Notified ED physician of a critical lab result(s). 6.5 hemoglobin 19.5 hematocrit. kr3 13:00 Lipase Sent. rs5 13:00 CMP Sent. rs5 13:00 Urine Microscopic Only Sent. rs5 13:33 initiated transfer to [facility]. bd 15:58 Inserted saline lock: 22 gauge in right forearm, using aseptic technique. bp 18:17 No provider procedures requiring assistance completed. Patient transferred, IV remains bp in place. Administered Medications: 12:00 Drug: NS 0.9% 1000 ml Route: IV; Rate: 1 bolus; Site: right forearm; bp 18:19 Follow up: IV Status: Completed infusion; IV Intake: 1000ml bp 12:00 Drug: morphine 2 mg Route: IVP; Infused Over: 4 mins; Site: right forearm; bp 18:17 Follow up: Response: Pain is decreased bp 12:00 Drug: Zofran (Ondansetron) 4 mg Route: IVP; Site: right forearm; bp 18:17 Follow up: Response: No adverse reaction bp 14:15 Drug: ProTONIX (pantoprazole) 8 mg/hr Route: IV; Rate: 25 ml/hr; Site: right forearm; bp 18:17 Follow up: IV Status: Infusion continued upon transfer bp 14:30 Drug: ProTONIX (pantoprazole) 40 mg Route: IVP; Site: right forearm; bp 18:18 Follow up: Response: No adverse reaction bp 14:30 Drug: Rocephin (cefTRIAXone) 1 grams Route: IV; Rate: calculated rate; Site: right bp forearm; 18:17 Follow up: IV Status: Completed infusion; IV Intake: 100ml bp Medication: 11:32 VIS not applicable for this client. bp Intake: 18:17 IV: 100ml; Total: 100ml. bp 18:19 IV: 1000ml; Total: 1100ml. bp Outcome: 12:57 ER care complete, transfer ordered by . rn 18:16 Transferred by ground EMS to [facility], Transfer form bp completed. 18:16 Condition: stable 18:16 Instructed on the need for transfer. 18:55 Patient left the ED. bp Signatures: Dispatcher [employer] EDTejal Wall Roman, MD MD rn Peltier, Brian, RN RN bp Lety Pastrana RN RN [email or web address] Philip Mantilla rs5
[2022-10-07 13:10] LABS: Albumin 1.7 g/dL (3.4-5.0); Bilirubin Total 0.9 mg/dL (0.2-1.0); Protein, Total 6.3 g/dL (6.4-8.2)
[2022-10-07 13:11] LABS: Potassium 2.7 mmol/L (3.5-5.1)
[2022-10-07] MEDS ORDERED: PANTOPRAZOLE INJ 80 MG in NA CHLORIDE 0.9% 250 ML IV ONE (13:45)
[2022-10-07 14:32] LABS: SARS-CoV-2 Antigen Rapid Res Negative (Negative)
[2022-10-07] MEDS ORDERED: CEFTRIAXONE 1000 MG/VIAL ONE (15:32)
[2022-10-07] MEDS ORDERED: PANTOPRAZOLE 40 MG INJ ONE (15:32)
[2022-10-07] MEDS ORDERED: NA CHLORIDE 0.9% 50 ML ONE (15:32)
[2022-10-07] MEDS ORDERED: NA CHLORIDE 0.9% 250 ML ONE (16:15)
[2022-10-07 20:02] VITALS: TEMP 98
[2022-10-07 20:06] VITALS: O2SAT 99
[2022-10-07 20:08] VITALS: BP 162/77
== END 2022-10-07 18:55 | disposition short-term general hospital (02) ==
LOC: ER 11:24
PROC: 30233N1 Transfusion of Nonautologous Red Blood Cells into Peripheral Vein, Percutaneous Approach (ICD-10-PCS; principal; 2022-10-07)
DX: T83.098A Other mechanical complication of other urinary catheter, initial encounter (principal); K92.2 Gastrointestinal hemorrhage, unspecified; N13.2 Hydronephrosis with renal and ureteral calculous obstruction; N18.9 Chronic kidney disease, unspecified; Z21 Asymptomatic human immunodeficiency virus [HIV] infection status; Z20.822 Contact with and (suspected) exposure to COVID-19
CPT/HCPCS: 36415; 74176; 80053; 83690; 85025; 86850; 86900; 86901; 87811; 96361; 96365; 96366; 96375; 99285; C9113; J2270; J2405; J7030; J7050; P9016

== ENCOUNTER 2024-10-01 18:43 | Emergency (ER) | payer OTHER, SELFPAY ==
[2024-10-01 19:37] LABS: Absolute Monocytes 0.9 K/uL (0.1-1.3); Absolute Neutrophil 14.6 K/uL (1.8-8.0); Basophils % 0.1 % (0-1.3); Eosinophils % 0.1 % (0-4.4); Hematocrit 15.6 % (39.6-49.0); Lymphocytes % 5.8 % (15.3-44.8); MCH 22.2 pg (27.0-35.0); MCHC 30.1 g/dL (32.0-36.0); MCV 73.7 fL (80-100); MPV 6.4 fL (7.6-11.3); Monocytes % 5.3 % (3.3-12.3); Neutrophils % 88.7 % (41.7-73.7); Platelets 492 thou/uL (152-406); RBC Red Blood Cell Count 2.11 M/uL (4.33-5.43); Red Cell Distribution Width 21.6 % (12.1-15.2)
[2024-10-01 19:40] LABS: Specific Gravity 1.016 (1.005-1.030); Sqamous Epithelial <5 /HPF (None Seen); Urine Bacteria <20 /HPF (<20); Urine Bilirubin NEGATIVE (Negative); Urine Blood Negative (Negative); Urine Clarity Extremely Turbid (Clear); Urine Color Light-Orange (Yellow); Urine Crystals Unidentified Few /HPF (None Seen); Urine Culture Reflex Order REFLEXED; Urine Glucose NEGATIVE (Negative); Urine Ketones NEGATIVE (Negative); Urine Microscopic Reflex YN ORDER UMIC; Urine Mucus Slight /HPF (None Seen); Urine Nitrite NEGATIVE (Negative); Urine Protein 1+ (Negative); Urine RBC <5 /HPF (None Seen); Urine Urobilinogen Normal (Normal); Urine WBC 20-50 /HPF (<5); Urine WBC Clump Few /HPF (None Seen); Urine Yeast (Budding) Few /HPF (None Seen); Urine pH 8.5 (5.0-7.0)
[2024-10-01 19:46] LABS: Hemoglobin 4.7 g/dL (13.6-17.9)
[2024-10-01] MEDS ORDERED: ACETAMINOPHEN 500 MG TAB ONE (19:52)
[2024-10-01 19:54] LABS: AST/SGOT 12 U/L (15-37); Albumin 1.5 g/dL (3.4-5.0); Albumin/Globulin Ratio 0.4 (1.1-1.8); Alkaline Phosphatase 127 U/L (45-117); Anion Gap 13.5 mEq/L (5.0-15.0); BUN Blood Urea Nitrogen 60 mg/dL (7-18); Bicarbonate 18 mEq/L (21-32); Bilirubin Total 0.6 mg/dL (0.2-1.0); Globulin 4.2 g/dL (2.3-3.5); Glomerular Filtration Rate 42 ml/min (=/>90); Glucose Level 86 mg/dL (74-106); Potassium 3.5 mEq/L (3.5-5.1); Protein, Total 5.7 g/dL (6.4-8.2); Sodium Level 140 mEq/L (136-145)
[2024-10-01 19:56] LABS: ALT/SGPT < 14 U/L (16-61)
[2024-10-01] MEDS ORDERED: ONDANSETRON 4 MG/2 ML VIAL ONE (20:14)
[2024-10-01] MEDS ORDERED: MORPHINE 4 MG/ML SYR ONE (20:14)
[2024-10-01] MEDS ORDERED: NA CHLORIDE 0.9% 100 ML ONE (20:39)
[2024-10-01] MEDS ORDERED: PIPERACIL/TAZO 3.375 GM VIAL IV ONE (20:39)
--- NOTE | 2024-10-01 20:39 | ER ---
Nurse's Notes [facility] Name: Manjit Ba Age: 64 yrs Sex: Male : 1960 Arrival Date: 10/01/2024 Time: 18:43 Bed 3 Private MD: Diagnosis: Anemia, unspecified;Anemia in other chronic diseases classified elsewhere;Abdominal pain, Generalized-pneumoperitoneum , diplaced nephrostomy tube;Elevated white blood cell count;Asymptomatic human immunodeficiency virus [HIV] infection status;Malignant neoplasm of bladder, unspecified;Unspecified kidney failure;Hydronephrosis with ureteral stricture, not elsewhere classified-nephrostomy tube displaced Presentation: 10/01 18:50 Chief complaint: EMS states: patient called for abdominal pain, 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 Coronavirus screen: At this time, the client does not indicate any symptoms associated with coronavirus-19. Ebola Screen: No symptoms or risks identified at this time. Initial Sepsis Screen: Does the patient meet any 2 criteria? No. Patient's initial sepsis screen is negative. Does the patient have a suspected source of infection? No. Patient's initial sepsis screen is negative. Risk Assessment: Do you want to hurt yourself or someone else? Patient reports no desire to harm self or others. Onset of symptoms is unknown. Care prior to arrival: Medication(s) given: fentanyl 50 mcg IV IV initiated. 20 GA, in the right antecubital area. 18:50 Method Of Arrival: [facility]: [facility] ko1 18:50 Acuity: KRISS 3 ko1 Triage Assessment: 18:52 General: Appears in no apparent distress. Behavior is calm, cooperative, appropriate ko1 for age. Pain: Complains of pain in abdomen. GI: Reports lower abdominal pain. Historical: - Allergies: 18:52 No Known Allergies; ko1 - Home Meds: 18:52 Unable to obtain [Active]; ko1 - PMHx: 18:52 Chronic Kidney Infection; HIV; Stage IV bladdre CA; ko1 - Immunization history:: Adult Immunizations unknown. - Infectious Disease History:: Denies. - Social history:: Smoking status: Patient/guardian denies using tobacco, but has a distant history of tobacco abuse. Screenin:29 [facility] ED Fall Risk Assessment (Adult) History of falling in the last 3 months, al5 including since admission No falls in past 3 months (0 pts) Confusion or Disorientation No (0 pts) Intoxicated or Sedated No (0 pts) Impaired Gait Yes (1 pt) Mobility Assist Device Used Yes (1 pt) Altered Elimination Yes (1 pt) Score/Fall Risk Level 3 or more points = High Risk Oriented to surroundings, Maintained a safe environment, Hourly rounding (assess needs \T\ fall precautionary measures) done, Used ambulatory aids as needed (educated on \T\ assisted with). Abuse screen: Denies threats or abuse. Denies injuries from another. Nutritional screening: No deficits noted. Tuberculosis screening: No symptoms or risk factors identified. Assessment: 19:30 General: Appears in no apparent distress. uncomfortable, ill, slender, Behavior is al5 calm, cooperative. Pain: Complains of pain in abdomen Pain currently is 10 out of 10 on a pain scale. Neuro: Level of Consciousness is awake, alert, obeys commands, Oriented to person, place, time, situation. Cardiovascular: Capillary refill < 3 seconds Patient's skin is warm and dry. Respiratory: Airway is patent Respiratory effort is even, unlabored, Respiratory pattern is regular, symmetrical. GI: Abdomen is flat, non-distended, Abd is soft X 4 quads Abdomen is tender to palpation X 4 quads. Reports lower abdominal pain, upper abdominal pain. : to gravity drainage nephrostomy bilateral. EENT: No signs and/or symptoms were reported regarding the EENT system. Derm: Skin is intact, is healthy with good turgor, Skin is normal, pale. Musculoskeletal: No signs and/or symptoms reported regarding the musculoskeletal system. 23:16 Reassessment: No changes from previously documented assessment. Patient and/or family br2 updated on plan of care and expected duration. Pain level reassessed. 23:30 Reassessment: No changes from previously documented assessment. Patient and/or family br2 updated on plan of care and expected duration. Pain level reassessed. Patient is alert, oriented x 3, equal unlabored respirations, skin warm/dry/pink. 23:40 Reassessment: PT'S BRIEF CLEANED OF FECES, FRESH BRIEF AND ABD PADS APPLIED SO SEEPING br2 AREAS. Vital Signs: 18:50 BP 182 / 84; Pulse 64; Resp 15; Temp 98.5; Pulse Ox 97% ; ko1 20:57 Weight 51 kg; Height 5 ft. 10 in. ; al5 22:09 BP 135 / 78; Pulse 90; Resp 18; Pulse Ox 94% ; br2 20:57 Body Mass Index 16.13 (51.00 kg, 177.8 cm) al5 ED Course: 18:49 Patient arrived in ED. ko1 18:52 Triage completed. ko1 18:52 Arm band placed on right wrist. Patient placed in an exam room, on a stretcher, on ko1 pulse oximetry, Patient notified of wait time. 18:59 Juan Antonio Aragon MD is Attending Physician. bo1 19:29 Monica Herndon, JUAN is Primary Nurse. al5 19:29 CBC with Diff Sent. mm11 19:29 CMP Sent. mm11 19:30 Patient has correct armband on for positive identification. Bed in low position. Call al5 light in reach. Side rails up X2. Provided Education on: plan of care. 19:30 No provider procedures requiring assistance completed. Maintain EMS IV. Dressing al5 intact. Good blood return noted. Site clean \T\ dry. Gauge \T\ site: 20G RAC. Flushed with 10 mL NS. 20:32 Abdomen In Process Unspecified. EDMS 20:37 Attending Physician role handed off by Juan Antonio Aragon MD marco antonio 20:37 Skip Cheung MD is Attending Physician. marco antonio 20:45 Initiated transfer with Patria for transfer to [facility], General surgery. Will sp call back for Doc to Doc. 20:55 Inserted saline lock: 22 gauge in left forearm, using aseptic technique. Flushed with al5 10 mL NS. 22:58 Continued transfer initiation with Milind Bruno. Accepting physician Dr.Peter Bradford. sp Report #[id number]. 23:00 Talked to Delfina with [employer] for transport. sp 23:03 Repeat lab(s) drawn. by me, sent to lab. sa1 23:04 Chest Single View XRAY In Process Unspecified. EDMS 23:23 EKG done, by ED staff, reviewed by Skip Cheung MD. sa1 23:40 Patient transferred, IV remains in place. br2 Administered Medications: 20:11 Drug: Acetaminophen PO 1000 mg PO once Route: PO; al5 21:00 Follow up: Response: No adverse reaction br2 20:23 Drug: morphine IVP or IV 4 mg IVP once over 4 mins Route: IVP; Infused Over: 4 mins; al5 Site: right antecubital; 21:00 Follow up: Response: No adverse reaction br2 20:23 Drug: Ondansetron IVP 4 mg IVP once; over 2 minutes Route: IVP; Site: right antecubital;al5 21:00 Follow up: Response: No adverse reaction br2 20:46 Drug: Piperacillin-Tazobactam IVPB 3.375 grams IVPB once over 60 mins; (mix in NS 100 al5 mL) Route: IVPB; Infused Over: 60 mins; Site: right antecubital; 21:50 Follow up: Response: No adverse reaction; IV Status: Completed infusion; IV Intake: br2 100ml 22:57 Drug: diphenhydrAMINE IVP 25 mg IVP once Route: IVP; Site: right antecubital; br2 23:40 Follow up: Response: No adverse reaction br2 Medication: 19:30 VIS not applicable for this client. al5 Intake: 21:50 IV: 100ml; Total: 100ml. br2 Outcome: 20:39 ER care complete, transfer ordered by MD. bernard 23:40 Transferred by ground EMS to [facility], Transfer form br2 completed. X-rays sent w/ patient. 23:40 Condition: stable br2 23:40 Instructed on the need for transfer, Demonstrated understanding of instructions, 10/02 00:42 Patient left the ED. ha1 Addendum: 10/05/2024 09:14 Addendum: Culture Results: Positive urine culture. Bacteria is resistant to, has s s intermediate sensitivity, or is not tested against prescribed antibiotics. Report given to NIKKIE for further evaluation and then to area attendant for follow up with patient. Phone call Attempt #1 Faxed report to [facility] SAUL Cheatham RN FAX [phone]. 10/08/2024 07:28 Addendum: Culture Results: Positive blood culture. faxed positive blood cultures to evelyn Arroyo at [facility] Ghanhsyam Chang at [phone]. Signatures: Dispatcher [employer] EDMS Jonatan, Skip, Radha Pleitez MD, cha, Shelby, RN RN Radha Hoffman Heidy, RN RN ha1 Margret Rod, RN RN ko1 Juan Antonio Aragon MD MD bo1 Monica Herndon, RN RN al5 Sultan Ronald sa1 Caty Marcelo RN RN br2 maura gunter mm11 Corrections: (The following items were deleted from the chart) 10/01 23:02 20:54 called [facility] for transfer talked to Patria amaya
--- NOTE | 2024-10-01 20:39 | EDPHYS ---
Physician Documentation [facility] Name: Manjit Ba Age: 64 yrs Sex: Male : 1960 Arrival Date: 10/01/2024 Time: 18:43 Bed 3 Private MD: ED Physician Skip Cheung HPI: 10/01 22:34 This 64 yrs old Male presents to ER via EMS with complaints of Abdominal Pain.marco antonio 22:34 The patient presents with abdominal pain in the upper abdomen, in the lower abdomen. marco antonio Onset: The symptoms/episode began/occurred just prior to arrival, today. The patient complains of pain in the left mid back and right mid back. The pain does not radiate. rolled in bed . Historical: - Allergies: 18:52 No Known Allergies; ko1 - Home Meds: 18:52 Unable to obtain [Active]; ko1 - PMHx: 18:52 Chronic Kidney Infection; HIV; Stage IV bladdre CA; ko1 - Immunization history:: Adult Immunizations unknown. - Infectious Disease History:: Denies. - Social history:: Smoking status: Patient/guardian denies using tobacco, but has a distant history of tobacco abuse. ROS: 22:40 Constitutional: Negative for fever, chills, and weight loss, Eyes: Negative for injury, marco antonio pain, redness, and discharge, ENT: Negative for injury, pain, and discharge, Neck: Negative for injury, pain, and swelling, Cardiovascular: Negative for chest pain, palpitations, and edema, Respiratory: Negative for shortness of breath, cough, wheezing, and pleuritic chest pain, Back: Negative for injury and pain, : Negative for injury, bleeding, discharge, and swelling, MS/Extremity: Negative for injury and deformity, Neuro: Negative for headache, weakness, numbness, tingling, and seizure, Psych: Negative for depression, anxiety, suicide ideation, homicidal ideation, and hallucinations, Allergy/Immunology: Negative for hives, rash, and allergies, Endocrine: Negative for neck swelling, polydipsia, polyuria, polyphagia, and marked weight changes, Hematologic/Lymphatic: Negative for swollen nodes, abnormal bleeding, and unusual bruising, 22:40 Abdomen/GI: Positive for abdominal pain, nausea, abdominal cramps, abdominal distension, 22:40 Back: Positive for decreased range of motion, pain with movement, flank pain, bilaterally, pt has bilateral nephrostomy tubes, 22:40 Skin: Positive for pallor, Exam: 22:40 Head/Face: Normocephalic, atraumatic. marco antonio 22:40 Constitutional: The patient appears frail, obviously ill, 22:40 Cardiovascular: Rate: normal, Rhythm: regular, Pulses: Pulses are 4+ in bilateral radial, brachial, femoral, popliteal, posterior tibial and and dorsalis pedis arteries.. JVD: is not appreciated, 23:22 ECG was reviewed by the Attending Physician. [facility] Vital Signs: 18:50 BP 182 / 84; Pulse 64; Resp 15; Temp 98.5; Pulse Ox 97% ; ko1 20:57 Weight 51 kg; Height 5 ft. 10 in. ; al5 22:09 BP 135 / 78; Pulse 90; Resp 18; Pulse Ox 94% ; br2 20:57 Body Mass Index 16.13 (51.00 kg, 177.8 cm) al5 MDM: 18:59 Medical Screening Exam initiated bo1 22:48 Differential Diagnosis altered mental status, sepsis, flu. Differential diagnosis: marco antonio pyelonephritis, UTI, diverticulitis, pancreatitis, diverticulitis, gastritis, GI Bleed, non-specific abd pain, pancreatitis, Peptic Ulcer Disease, Perf. Duodenal Ulcer, Perf. Gastric Ulcer, Peritonitis, Pyelonephritis. Data reviewed: vital signs, nurses notes, EMS record, lab test result(s), EKG, radiologic studies, CT scan, plain films. Consideration of Admission/Observation Escalation of care including admission/observation considered. I considered the following discharge prescriptions or medication management in the emergency department Medications were administered in the Emergency Department. See MAR. Independent interpretation of the following test(s) in the Emergency Department EKG: See my EKG interpretation above. Test considered but Not performed: Ultrasound no abd usg. Historians other than the Patient: EMS: ems well informed. Care significantly affected by the following chronic conditions: Cancer, Chronic Kidney Disease, hiv. Counseling: I had a detailed discussion with the patient and/or guardian regarding the historical points, exam findings, and any diagnostic results supporting the discharge/admit diagnosis, lab results, radiology results, the need to transfer to another facility, for higher level of care, [facility] does not immediately have the required specialist. 01/24 19:06 Order name: CBC with Diff; Complete Time: 21:08 [facility] 10/01 19:06 Order name: CMP; Complete Time: 20:07 [facility] 10/01 19:06 Order name: Urinalysis w/ reflexes; Complete Time: 19:50 [facility] 10/01 19:45 Order name: Urine Culture [facility] 10/01 19:51 Order name: Blood Culture Adult (2) [facility] 10/01 19:51 Order name: Lactate w/ 2H reflex if indic.; Complete Time: 21:08 [facility] 10/01 19:52 Order name: Type And Screen [facility] 10/01 20:46 Order name: CBC Smear Scan; Complete Time: 21:08 [facility] 10/01 21:02 Order name: Packed RBC Leukored [facility] 10/01 22:48 Order name: Troponin High Sensitivity [facility] 10/01 20:32 Order name: Abdomen ; Complete Time: 21:08 [facility] 10/01 22:48 Order name: Chest Single View XRAY [facility] 10/01 19:06 Order name: IV Saline Lock; Complete Time: 19:29 [facility] 10/01 19:06 Order name: Labs collected and sent; Complete Time: 19:29 [facility] 10/01 20:42 Order name: Transfuse; Complete Time: 23:45 [facility] 10/01 22:48 Order name: EKG - Nurse/Tech; Complete Time: 23:38 marco antonio EC:22 Rate is 85 beats/min. Rhythm is regular. QRS Anselmo is Normal. ME interval is prolonged [facility] at 224 msec. QRS interval is normal. QT interval is normal. No Q waves. T waves are Normal. No ST changes noted. Clinical impression: NSR w/ Non-specific ST/T Changes and No evidence of ischemia. Interpreted by me. Reviewed by me. Administered Medications: 20:11 Drug: Acetaminophen PO 1000 mg PO once Route: PO; al5 21:00 Follow up: Response: No adverse reaction br2 20:23 Drug: morphine IVP or IV 4 mg IVP once over 4 mins Route: IVP; Infused Over: 4 mins; al5 Site: right antecubital; 21:00 Follow up: Response: No adverse reaction br2 20:23 Drug: Ondansetron IVP 4 mg IVP once; over 2 minutes Route: IVP; Site: right antecubital;al5 21:00 Follow up: Response: No adverse reaction br2 20:46 Drug: Piperacillin-Tazobactam IVPB 3.375 grams IVPB once over 60 mins; (mix in NS 100 al5 mL) Route: IVPB; Infused Over: 60 mins; Site: right antecubital; 21:50 Follow up: Response: No adverse reaction; IV Status: Completed infusion; IV Intake: br2 100ml 22:57 Drug: diphenhydrAMINE IVP 25 mg IVP once Route: IVP; Site: right antecubital; br2 23:40 Follow up: Response: No adverse reaction br2 Disposition Summary: 10/01/24 20:39 Transfer Ordered Notes: [facility] Reason: Higher level of care marco antonio Condition: Fair marco antonio Problem: new marco antonio Symptoms: have improved marco antonio Accepting Physician: to [facility](10/02/24 00:42) ha1 Diagnosis - Anemia, unspecified marco antonio - Anemia in other chronic diseases classified elsewhere marco antonio - Elevated white blood cell count macro antonio - Asymptomatic human immunodeficiency virus [HIV] infection status marco antonio - Malignant neoplasm of bladder, unspecified marco antonio - Abdominal pain, Generalized - pneumoperitoneum , diplaced nephrostomy tube(10/01/24 marco antonio 22:54) - Unspecified kidney failure marco antonio - Hydronephrosis with ureteral stricture, not elsewhere classified - nephrostomy marco antonio tube displaced Forms: - Medication Reconciliation Form marco antonio - SBAR form marco antonio Signatures: Dispatcher [employer] EDMS Rachelle Werner RN RN kl Anderson, Corey, MD MD cha Ayala, Heidy RN RN ha1 Margret Rod RN RN ko1 Juan Antonio Aragon MD MD bo1 Monica Herndon RN RN al5 Caty Marcelo RN RN br2 Corrections: (The following items were deleted from the chart) 19:07 19:07 Abdomen Pelvis W Con+CT.RAD.BRZ ordered. EDMS EDMS 19:52 19:52 TYPE AND SCREEN+BB.LAB.BRZ ordered. EDMS EDMS 20:40 20:39 to [facility] marco antonio marco antonio 20:43 20:43 LAB ADD ON+C.LAB.BRZ ordered. EDMS EDMS 20:57 20:42 PACKED RBC LEUKORED+BB.LAB.BRZ ordered. EDMS EDMS 20:57 20:45 ABO/RH typing ordered. EDMS EDMS : 20:45 Antibody Screen ordered. EDMS EDMS :48 22:48 Chest Single View+RAD.RAD.BRZ ordered. EDMS EDMS : 20:39 Abdominal pain, Generalized [facility] 20:40 to [facility] marco antonio 10/02 00:42 10/01 22:54 to [facility] ha1
[2024-10-01 20:47] LABS: Anisocytosis 1+; Blood Morphology Comment NOTED (NOT SEEN); Hypochromasia 1+; Microcytosis 1+; Platelet Estimate INCR; Polychromasia 1+; White Blood Cell Scan OK (OK)
--- NOTE | 2024-10-01 21:02 | RAD REPORT ---
EXAMINATION: CT ABDOMEN AND PELVIS WITHOUT CONTRAST CLINICAL INDICATION: Abdominal pain. Leaking bowel TECHNIQUE: CT abdomen and pelvis was performed, as per department protocol. IV contrast and oral was not administered.Axial, sagittal and coronal reconstructions were obtained. One or more of the following dose reduction techniques were used: Automated exposure control, adjustment of the mA and/o r kV according to the patient size, and/or iterative reconstruction. Unless otherwise specified, incidental findings do not require dedicated imaging follow-up. [id number]. COMPARISON: 2022 FINDINGS: The lack of intravenous and oral contrast limits evaluation of solid organs, vessels and bowel. Small bilateral pleural effusions. Cholelithiasis. Gallbladder wall does not appear thickened. Spleen, pancreas and adrenals grossly normal. Right percutaneous nephrostomy tube. Small right renal calculi. Moderate to marked right hydronephros is. Proximal right ureter is dilated. 4 visualization right ureter. Air and fluid is present along the right lateral abdominal wall at the level of the kidneys extending inferiorly. In the right poste rior pararenal space. Air and ill-defined fluid extend medially along the right psoas into the pelvis. Left percutaneous nephrostomy tube is present. No hydronephrosis. A Conteh catheter is present within the bladder. Bladder calculi are present. Bladder wall is thickene d. Air extends from the anterior aspect of the bladder towards the abdominal wall. It appears extraluminal. Air is present within the perineum bilaterally. Postsurgical changes involve the bowel. The wall of the rectosigmoid colon is thickened. IMPRESSION: Right percutaneous nephrostomy tube likely malfunctioning as there is moderate to marked right hydron ephrosis Air and ill-defined fluid along the right lateral abdominal wall at the level of the kidneys extendin g into the right posterior pararenal space inferiorly. Air within the peritoneum. These findings may indicate infection. Air extends from the anterior aspect of the bladder anteriorly presumably is extraluminal and indicat es a tear of the wall may be present. Thickening of the wall of the rectum and prostate may indicate inflammation.
[2024-10-01] MEDS ORDERED: NA CHLORIDE 0.9% 250 ML ONE (22:32)
[2024-10-01] MEDS ORDERED: DIPHENHYDRAMINE 50 MG/ML VIAL ONE (22:33)
--- NOTE | 2024-10-02 00:23 | RAD REPORT ---
EXAM: XR Chest, 1 View CLINICAL HISTORY: The patient is 64 years old and is Male; ABDOMINAL DISTENTION TECHNIQUE: Frontal view of the chest. COMPARISON: No relevant prior studies available. FINDINGS: LUNGS: Bibasilar opacities are noted. The lungs are otherwise well-inflated and clear. PLEURAL SPACE: Unremarkable. No pneumothorax. HEART: Unremarkable. No cardiomegaly. MEDIASTINUM: Unremarkable. Normal mediastinal contour. BONES/JOINTS: Multilevel degenerative change of the spine is present. No acute fracture. TUBES, LINES AND DEVICES: Examination is limited secondary to overlying tubing. Bilateral nephr ostomy tubes are present. UPPER ABDOMEN: Unremarkable as visualized. IMPRESSION: Findings suggest bibasilar atelectasis. Electronically signed by: Georgina John MD 10/02/2024 12:06 AM [facility] Due to temporary technical issues with the PACS/Zenput reporting system, reports are being marleny d by the in-house radiologist without review as a courtesy to ensure prompt reporting the interpreting radiologist is fully responsible for the content of the report. Transcribed Date/Time: 10/02/2024 12:22 AM
[2024-10-02 04:37] VITALS: TEMP 98.5
[2024-10-02 04:43] VITALS: BP 135/78; O2SAT 94
--- NOTE | 2024-10-06 12:45 | EKG ---
Test Date: 2024-10-01 Test Time: 23:15:54 Isotope Hydrologist: MEASUREMENT RESULTS: Intervals: Rate: 85 TX: 224 QRSD: 86 QT: 398 QTc: 473 [place]: P: 75 TX: 224 QRS: -40 T: 74 INTERPRETIVE STATEMENTS: Sinus rhythm with 1st degree AV block Left axis deviation Low voltage QRS Inferior infarct, age undetermined T wave abnormality, consider anterior ischemia Abnormal ECG Compared to ECG 01/13/2019 20:57:42 First degree AV block now present Left-axis deviation now present Low QRS voltage now present T-wave abnormality now present Possible ischemia now present Myocardial infarct finding still present Electronically Signed On 10-06-24 12:36:41 CLINICAL RN by Caden Brown
== END 2024-10-02 00:42 | disposition short-term general hospital (02) ==
LOC: ER 18:43
PROC: 30233N1 Transfusion of Nonautologous Red Blood Cells into Peripheral Vein, Percutaneous Approach (ICD-10-PCS; principal; 2024-10-02)
DX: D64.9 Anemia, unspecified (principal); K66.8 Other specified disorders of peritoneum; N19 Unspecified kidney failure; D72.829 Elevated white blood cell count, unspecified; T83.022A Displacement of nephrostomy catheter, initial encounter; N13.1 Hydronephrosis with ureteral stricture, not elsewhere classified; C67.9 Malignant neoplasm of bladder, unspecified; Z21 Asymptomatic human immunodeficiency virus [HIV] infection status
CPT/HCPCS: 96365; 87040 ×2; 87088; 85025; 81001; 87086; 36415; 86900; 86850; 87205 ×2; 86901; 83605; 86920 ×2; 87077 ×3; 87186 ×3; 84484; 80053; 74176; 71045; 96375; 99285; 36430; J1200; J2543; J2405; P9016; J7050; 93005